=== PATIENT | male | born 1960 | race Hispanic/Latino ===

== ENCOUNTER 2024-04-06 15:35 | Emergency (ER) | payer OTHER, SELFPAY ==
[2024-04-06] VITALS (33 sets, daily range): BP systolic 125–168; BP diastolic 61–88; PULSE 83–96; RESP 14–21; TEMP 37.2; O2SAT 94–100; BMI 24.1
--- NOTE | 2024-04-06 16:36 | ED.MALEGU ---
HPI - Male Genitourinary <Monica Wasserman DO - Last Filed: 04/12/24 08:32> General Chief complaint: Urogenital-Male Stated complaint: Blood in urine t-7, no energy Time Seen by Provider: 04/06/24 16:06 Source: patient Mode of arrival: Ambulatory History of Present Illness HPI Narrative: Patient is a 63-year-old male history of insulin-dependent diabetes coronary artery disease with stents in 2003 hypertension diabetic induced neuropathy presenting today with increasing weakness. He reports that he has not felt well for almost a year but maybe worse over the last 4 days. He is some chronic ongoing back pain which might be a little bit worse but he really can not tell. He denies any sort of fever. But has significant weakness and chills. Noticed had some blood in his urine. reports that he has had significant decrease in appetite. No painful frequent urination no significant kidney stone pain no chest pain or shortness of breath. Related Data Home Medications Medication Instructions Recorded Confirmed amlodipine 5 mg tablet 5 mg PO DAILY 04/06/24 04/06/24 aspirin 81 mg tablet,delayed 81 mg PO DAILY 04/06/24 04/06/24 release gabapentin 300 mg capsule See Rx Instructions .Route .COMPLEX 04/06/24 04/06/24 glipizide 5 mg-metformin 500 mg 2 tab PO BID 04/06/24 04/06/24 tablet hydrocodone 5 mg-acetaminophen 325 1 tab PO Q6H PRN pain 04/06/24 04/06/24 mg tablet insulin NPH isoph U-100 human 100 5 unit SUBCUT BID 04/06/24 04/06/24 unit/mL (3 mL) subcutaneous pen (Humulin N NPH U-100 Insulin KwikPen) trazodone 100 mg tablet 100 mg PO ONCE PM PRN insomnia 04/06/24 04/06/24 Allergies Allergy/AdvReac Type Severity Reaction Status Date / Time No Known Drug Allergies Allergy Verified 04/06/24 15:50 Patient History <Monica Wasserman DO - Last Filed: 04/12/24 08:32> Social History Smoking Status: Never smoker Smoking Status: Never smoker alcohol intake frequency: holidays/special occasions only Substance Use Type: does not use Exam <Monica Wasserman DO - Last Filed: 04/12/24 08:32> Initial Vital Signs Initial Vital Signs: Vital Signs Temperature 98.9 F 04/06/24 15:50 Pulse Rate 96 H 04/06/24 15:50 Respiratory Rate 18 04/06/24 15:50 Blood Pressure 163/83 H 04/06/24 15:50 Pulse Oximetry 99 04/06/24 15:50 Oxygen Delivery Method Room Air 04/06/24 15:50 GENERAL: Alert week 63-year-old male HEENT: Head atraumatic,EOMI, pupils reactive, face symmetric, moist mucous membranes CARDIOVASCULAR: Regular rate and rhythm without murmurs, rubs or gallops. RESPIRATORY: Breath sounds equal bilaterally, no wheezes rales or rhonchi. ABDOMEN: Soft, nontender. Normoactive bowel sounds all 4 quadrants. No guarding or rebound. BACK: No vertebral tenderness or step-off some mild left lumbar pain that goes across lower bottom of his back : No CVA tenderness EXTREMITIES: Normal range of motion, no clubbing or edema. Neurovascularly intact NEUROLOGICAL: Alert and oriented x4.Normal gait and speech. SKIN: Warm, dry, no laceration, no petechiae, no rashes or lesions. <Lacey Johnson, DO - Last Filed: 04/07/24 00:16> Initial Vital Signs Initial Vital Signs: Vital Signs Temperature 98.9 F 04/06/24 15:50 Pulse Rate 96 H 04/06/24 15:50 Respiratory Rate 18 04/06/24 15:50 Blood Pressure 163/83 H 04/06/24 15:50 Pulse Oximetry 99 04/06/24 15:50 Oxygen Delivery Method Room Air 04/06/24 15:50 Course <Monica Wasserman, DO - Last Filed: 04/12/24 08:32> Orders Ordered: Discontinued Medications Hydrocodone Bitart/Acetaminophen (Hydrocodone/Acet 5/325 Tablet) 1 tab PO NOW ONE Stop: 04/06/24 16:48 Last Admin: 04/06/24 17:07 Dose: 1 tab Documented By: CHARLETTE Hydrocodone Bitart/Acetaminophen (Hydrocodone/Acet 5/325 Tablet) 1 tab PO Q4HR PRN PRN Reason: Pain, Moderate (4-6) Last Admin: 04/06/24 21:27 Dose: 1 tab Documented By: STEVE Aspirin (Aspirin 81 Mg Chew Tab) 324 mg PO NOW ONE Stop: 04/06/24 17:55 Last Admin: 04/06/24 18:10 Dose: 324 mg Documented By: CHARLETTE Atorvastatin Calcium (Atorvastatin 20 Mg Tablet) 80 mg PO NOW ONE Stop: 04/06/24 18:22 Last Admin: 04/06/24 18:28 Dose: 80 mg Documented By: CHARLETTE Heparin Sodium (Porcine) (Heparin 5,000 Unit/Ml Vial) 4,000 unit 60 unit/kg (4000 unit) IV NOW ONE Stop: 04/06/24 17:55 Last Admin: 04/06/24 18:11 Dose: 4,000 unit Documented By: CHARLETTE Sodium Chloride (Normal Saline 0.9%) 1,000 mls @ 1,000 mls/hr IV BOLUS ONE Stop: 04/06/24 17:46 Last Infusion: 04/06/24 18:10 Dose: Infused Documented By: Admin: 04/06/24 17:06 Dose: 1,000 mls/hr Documented By: CHARLETTE Ceftriaxone Sodium 1,000 mg/ (Sodium Chloride) 100 mls @ 200 mls/hr IV NOW ONE Stop: 04/06/24 17:23 Last Infusion: 04/06/24 18:29 Dose: Infused Documented By: Admin: 04/06/24 17:40 Dose: 200 mls/hr Documented By: CHARLETTE Heparin Sodium/Dextrose (Heparin Drip) 25,000 unit in 500 mls @ 15.785 mls/hr IV CONT DANILO; Protocol Last Admin: 04/06/24 18:14 Dose: 12 units/kg/hr, 15.785 mls/hr Documented By: CHARLETTE Co-signed By: CLARISSA Ondansetron HCl (Ondansetron 4 Mg/2 Ml Inj) 4 mg IV NOW PRN PRN Reason: Nausea And Vomiting Vital Signs Vital signs: Vital Signs - 8 hr 04/06/24 16:30 04/06/24 16:30 04/06/24 16:45 Pulse Rate 88 Respiratory Rate Blood Pressure 151/70 H 147/79 H Pulse Oximetry 99 Oxygen Delivery Method 04/06/24 16:45 04/06/24 17:00 04/06/24 17:00 Pulse Rate 94 H 90 Respiratory Rate 16 Blood Pressure 146/71 H Pulse Oximetry 100 99 Oxygen Delivery Method Room Air 04/06/24 17:12 04/06/24 17:12 04/06/24 17:15 Pulse Rate 89 Respiratory Rate 16 Blood Pressure 154/80 H 150/84 H Pulse Oximetry 99 Oxygen Delivery Method 04/06/24 17:15 04/06/24 17:30 04/06/24 17:30 Pulse Rate 89 95 H Respiratory Rate 14 Blood Pressure 153/85 H Pulse Oximetry 99 100 Oxygen Delivery Method Room Air 04/06/24 17:45 04/06/24 17:45 04/06/24 18:00 Pulse Rate 94 H 90 Respiratory Rate 18 Blood Pressure 155/87 H Pulse Oximetry 100 99 Oxygen Delivery Method 04/06/24 18:00 04/06/24 18:15 04/06/24 18:15 Pulse Rate 87 Respiratory Rate 19 Blood Pressure 154/77 H 157/88 H Pulse Oximetry 99 Oxygen Delivery Method 04/06/24 18:30 04/06/24 18:30 04/06/24 18:45 Pulse Rate 85 87 Respiratory Rate 20 14 Blood Pressure 152/80 H Pulse Oximetry 99 99 Oxygen Delivery Method 04/06/24 18:45 04/06/24 19:00 04/06/24 19:00 Pulse Rate 90 Respiratory Rate 20 Blood Pressure 152/84 H 153/69 H Pulse Oximetry 98 Oxygen Delivery Method 04/06/24 19:15 04/06/24 19:15 04/06/24 19:30 Pulse Rate 87 Respiratory Rate 16 Blood Pressure 143/77 H 150/81 H Pulse Oximetry 98 Oxygen Delivery Method 04/06/24 19:30 04/06/24 19:45 04/06/24 19:45 Pulse Rate 85 84 Respiratory Rate 20 20 Blood Pressure 148/78 H Pulse Oximetry 98 99 Oxygen Delivery Method 04/06/24 20:00 04/06/24 20:00 04/06/24 20:15 Pulse Rate 83 85 Respiratory Rate 17 16 Blood Pressure 145/87 H Pulse Oximetry 99 99 Oxygen Delivery Method 04/06/24 20:15 04/06/24 20:30 04/06/24 20:30 Pulse Rate 86 Respiratory Rate 19 Blood Pressure 166/76 H 144/74 H Pulse Oximetry 97 Oxygen Delivery Method 04/06/24 20:45 04/06/24 20:45 04/06/24 21:00 Pulse Rate 85 86 Respiratory Rate 18 15 Blood Pressure 143/76 H Pulse Oximetry 98 97 Oxygen Delivery Method 04/06/24 21:00 04/06/24 21:15 04/06/24 21:15 Pulse Rate 85 Respiratory Rate 18 Blood Pressure 136/74 145/76 H Pulse Oximetry 96 Oxygen Delivery Method 04/06/24 21:30 04/06/24 21:30 04/06/24 21:46 Pulse Rate 89 86 Respiratory Rate 21 19 Blood Pressure 157/83 H Pulse Oximetry 98 94 Oxygen Delivery Method 04/06/24 21:46 04/06/24 22:00 04/06/24 22:00 Pulse Rate 87 Respiratory Rate 19 Blood Pressure 136/68 140/73 Pulse Oximetry 98 Oxygen Delivery Method 04/06/24 22:15 04/06/24 22:15 04/06/24 22:30 Pulse Rate 88 Respiratory Rate 19 Blood Pressure 135/70 125/61 Pulse Oximetry 96 Oxygen Delivery Method 04/06/24 22:30 04/06/24 23:00 04/06/24 23:30 Pulse Rate 90 85 83 Respiratory Rate 19 15 17 Blood Pressure Pulse Oximetry 97 97 98 Oxygen Delivery Method 04/06/24 23:56 04/06/24 23:56 Pulse Rate 86 Respiratory Rate 21 Blood Pressure 130/66 Pulse Oximetry 99 Oxygen Delivery Method <Lacey Johnson, DO - Last Filed: 04/07/24 00:16> Orders Ordered: Discontinued Medications Hydrocodone Bitart/Acetaminophen (Hydrocodone/Acet 5/325 Tablet) 1 tab PO NOW ONE Stop: 04/06/24 16:48 Last Admin: 04/06/24 17:07 Dose: 1 tab Documented By: CHARLETTE Hydrocodone Bitart/Acetaminophen (Hydrocodone/Acet 5/325 Tablet) 1 tab PO Q4HR PRN PRN Reason: Pain, Moderate (4-6) Last Admin: 04/06/24 21:27 Dose: 1 tab Documented By: STEVE Aspirin (Aspirin 81 Mg Chew Tab) 324 mg PO NOW ONE Stop: 04/06/24 17:55 Last Admin: 04/06/24 18:10 Dose: 324 mg Documented By: CHARLETTE Atorvastatin Calcium (Atorvastatin 20 Mg Tablet) 80 mg PO NOW ONE Stop: 04/06/24 18:22 Last Admin: 04/06/24 18:28 Dose: 80 mg Documented By: CHARLETTE Heparin Sodium (Porcine) (Heparin 5,000 Unit/Ml Vial) 4,000 unit 60 unit/kg (4000 unit) IV NOW ONE Stop: 04/06/24 17:55 Last Admin: 04/06/24 18:11 Dose: 4,000 unit Documented By: CHARLETTE Sodium Chloride (Normal Saline 0.9%) 1,000 mls @ 1,000 mls/hr IV BOLUS ONE Stop: 04/06/24 17:46 Last Infusion: 04/06/24 18:10 Dose: Infused Documented By: Admin: 04/06/24 17:06 Dose: 1,000 mls/hr Documented By: CHARLETTE Ceftriaxone Sodium 1,000 mg/ (Sodium Chloride) 100 mls @ 200 mls/hr IV NOW ONE Stop: 04/06/24 17:23 Last Infusion: 04/06/24 18:29 Dose: Infused Documented By: Admin: 04/06/24 17:40 Dose: 200 mls/hr Documented By: CHARLETTE Heparin Sodium/Dextrose (Heparin Drip) 25,000 unit in 500 mls @ 15.785 mls/hr IV CONT DANILO; Protocol Last Admin: 04/06/24 18:14 Dose: 12 units/kg/hr, 15.785 mls/hr Documented By: CHARLETTE Co-signed By: CLARISSA Ondansetron HCl (Ondansetron 4 Mg/2 Ml Inj) 4 mg IV NOW PRN PRN Reason: Nausea And Vomiting Vital Signs Vital signs: Vital Signs - 8 hr 04/06/24 16:30 04/06/24 16:30 04/06/24 16:45 Pulse Rate 88 Respiratory Rate Blood Pressure 151/70 H 147/79 H Pulse Oximetry 99 Oxygen Delivery Method 04/06/24 16:45 04/06/24 17:00 04/06/24 17:00 Pulse Rate 94 H 90 Respiratory Rate 16 Blood Pressure 146/71 H Pulse Oximetry 100 99 Oxygen Delivery Method Room Air 04/06/24 17:12 04/06/24 17:12 04/06/24 17:15 Pulse Rate 89 Respiratory Rate 16 Blood Pressure 154/80 H 150/84 H Pulse Oximetry 99 Oxygen Delivery Method 04/06/24 17:15 04/06/24 17:30 04/06/24 17:30 Pulse Rate 89 95 H Respiratory Rate 14 Blood Pressure 153/85 H Pulse Oximetry 99 100 Oxygen Delivery Method Room Air 04/06/24 17:45 04/06/24 17:45 04/06/24 18:00 Pulse Rate 94 H 90 Respiratory Rate 18 Blood Pressure 155/87 H Pulse Oximetry 100 99 Oxygen Delivery Method 04/06/24 18:00 04/06/24 18:15 04/06/24 18:15 Pulse Rate 87 Respiratory Rate 19 Blood Pressure 154/77 H 157/88 H Pulse Oximetry 99 Oxygen Delivery Method 04/06/24 18:30 04/06/24 18:30 04/06/24 18:45 Pulse Rate 85 87 Respiratory Rate 20 14 Blood Pressure 152/80 H Pulse Oximetry 99 99 Oxygen Delivery Method 04/06/24 18:45 04/06/24 19:00 04/06/24 19:00 Pulse Rate 90 Respiratory Rate 20 Blood Pressure 152/84 H 153/69 H Pulse Oximetry 98 Oxygen Delivery Method 04/06/24 19:15 04/06/24 19:15 04/06/24 19:30 Pulse Rate 87 Respiratory Rate 16 Blood Pressure 143/77 H 150/81 H Pulse Oximetry 98 Oxygen Delivery Method 04/06/24 19:30 04/06/24 19:45 04/06/24 19:45 Pulse Rate 85 84 Respiratory Rate 20 20 Blood Pressure 148/78 H Pulse Oximetry 98 99 Oxygen Delivery Method 04/06/24 20:00 04/06/24 20:00 04/06/24 20:15 Pulse Rate 83 85 Respiratory Rate 17 16 Blood Pressure 145/87 H Pulse Oximetry 99 99 Oxygen Delivery Method 04/06/24 20:15 04/06/24 20:30 04/06/24 20:30 Pulse Rate 86 Respiratory Rate 19 Blood Pressure 166/76 H 144/74 H Pulse Oximetry 97 Oxygen Delivery Method 04/06/24 20:45 04/06/24 20:45 04/06/24 21:00 Pulse Rate 85 86 Respiratory Rate 18 15 Blood Pressure 143/76 H Pulse Oximetry 98 97 Oxygen Delivery Method 04/06/24 21:00 04/06/24 21:15 04/06/24 21:15 Pulse Rate 85 Respiratory Rate 18 Blood Pressure 136/74 145/76 H Pulse Oximetry 96 Oxygen Delivery Method 04/06/24 21:30 04/06/24 21:30 04/06/24 21:46 Pulse Rate 89 86 Respiratory Rate 21 19 Blood Pressure 157/83 H Pulse Oximetry 98 94 Oxygen Delivery Method 04/06/24 21:46 04/06/24 22:00 04/06/24 22:00 Pulse Rate 87 Respiratory Rate 19 Blood Pressure 136/68 140/73 Pulse Oximetry 98 Oxygen Delivery Method 04/06/24 22:15 04/06/24 22:15 04/06/24 22:30 Pulse Rate 88 Respiratory Rate 19 Blood Pressure 135/70 125/61 Pulse Oximetry 96 Oxygen Delivery Method 04/06/24 22:30 04/06/24 23:00 04/06/24 23:30 Pulse Rate 90 85 83 Respiratory Rate 19 15 17 Blood Pressure Pulse Oximetry 97 97 98 Oxygen Delivery Method 04/06/24 23:56 04/06/24 23:56 Pulse Rate 86 Respiratory Rate 21 Blood Pressure 130/66 Pulse Oximetry 99 Oxygen Delivery Method MDM - Male Genitourinary <Monica Wasserman, - Last Filed: 04/12/24 08:32> Lab Data 04/06/24 16:05 04/06/24 16:05 Labs: Lab Results 04/06/24 04/06/24 04/06/24 Range/Units 16:05 16:30 16:30 WBC 11.6 H (4.5-11.0) X10^3/uL RBC 3.68 L (4.5-5.9) X10^6/uL Hgb 11.3 L (13.5-17.5) g/dL Hct 32.6 L (41-53) % MCV 88.7 (80-100) fL MCH 30.7 (26-34) PG MCHC 34.6 (30-36) % RDW 12.8 (11.6-14.8) % Plt Count 275 (150-400) X10^3/uL Neut % (Auto) 78.4 H (50-75) % Lymph % (Auto) 9.8 L (25-40) % [place] % (Auto) 8.8 (3-14) % Eos % (Auto) 1.1 L (2-4) % Baso % (Auto) 1.9 (0-2) % Neut # (Auto) 9100 H (1275-3687) /uL Lymph # (Auto) 1100 (3616-3913) /uL [place] # (Auto) 1000 H (0-900) /uL Eos # (Auto) 100 (0-450) /uL Baso # (Auto) 200 H (0-100) /uL APTT (25.1-36.5) SECONDS Sodium 134 L (137-145) mmol/L Potassium 4.0 (3.4-5.1) mmol/L Chloride 99 (98-107) mmol/L Carbon Dioxide 27 (22-32) mmol/L BUN 20 (9-20) mg/dL Creatinine 0.54 L (0.66-1.25) mg/dL Estimated GFR > 60 (>60) mL/min BUN/Creatinine Ratio 37.0 H (6-22) Glucose 293 H (80-110) mg/dL Lactate 1.1 (0.7-2.1) mmol/L Calcium 8.9 (8.4-10.2) mg/dL Total Bilirubin 0.9 (0.2-1.3) mg/dL AST 31 (17-59) IU/L ALT 14 (<50) IU/L Alkaline Phosphatase 94 (38-126) U/L Total Creatine Kinase 83 (55-170) U/L Troponin I 2.160 H* (0.01-0.034) ng/mL NT-Pro-B Natriuret Pep (<125) pg/mL Total Protein 7.2 (6.3-8.2) g/dL Albumin 4.1 (3.5-5.0) g/dL Globulin 3.1 (1.7-4.1) g/dL Albumin/Globulin Ratio 1.3 (1.0-2.8) Lipase 72 (23-300) U/L Urine Color Yellow Urine Appearance Cloudy Urine pH 6.0 (4.5-8.0) Ur Specific [place] 1.015 (1.000-1.035) Urine Protein 1+ H (Negative) Urine Glucose (UA) Negative (Negative) g/dL Urine Ketones 2+ H (NEGATIVE) Urine Occult Blood 3+ H (Negative) Urine Nitrate Negative (Negative) Urine Bilirubin Negative (NEGATIVE) Urine Urobilinogen 2.0 H (0.2) E.U./dL Ur Leukocyte Esterase 2+ H (NEGATIVE) Urine RBC Cancelled 5-10/hpf H Urine WBC Cancelled Ur Squamous Epith Cells Ur Transition Epith Cell Ur Renal Epithelial Cell Calcium Oxalate Crystal Uric Acid Crystals Triple Phos Crystals Other Crystals Amorphous Sediment Urine Bacteria Hyaline Casts Granular Casts RBC Casts WBC Casts Other Casts Urine Mucus Urine Trichomonas Urine Yeast Urine Sperm Ur Culture Indicated? Micro UA Comment Vol Urine Centrifuged 04/06/24 04/06/24 04/06/24 Range/Units 16:30 16:30 16:30 WBC (4.5-11.0) X10^3/uL RBC (4.5-5.9) X10^6/uL Hgb (13.5-17.5) g/dL Hct (41-53) % MCV (80-100) fL MCH (26-34) PG MCHC (30-36) % RDW (11.6-14.8) % Plt Count (150-400) X10^3/uL Neut % (Auto) (50-75) % Lymph % (Auto) (25-40) % [place] % (Auto) (3-14) % Eos % (Auto) (2-4) % Baso % (Auto) (0-2) % Neut # (Auto) (8175-6583) /uL Lymph # (Auto) (9079-4257) /uL [place] # (Auto) (0-900) /uL Eos # (Auto) (0-450) /uL Baso # (Auto) (0-100) /uL APTT (25.1-36.5) SECONDS Sodium (137-145) mmol/L Potassium (3.4-5.1) mmol/L Chloride (98-107) mmol/L Carbon Dioxide (22-32) mmol/L BUN (9-20) mg/dL Creatinine (0.66-1.25) mg/dL Estimated GFR (>60) mL/min BUN/Creatinine Ratio (6-22) Glucose (80-110) mg/dL Lactate (0.7-2.1) mmol/L Calcium (8.4-10.2) mg/dL Total Bilirubin (0.2-1.3) mg/dL AST (17-59) IU/L ALT (<50) IU/L Alkaline Phosphatase (38-126) U/L Total Creatine Kinase (55-170) U/L Troponin I (0.01-0.034) ng/mL NT-Pro-B Natriuret Pep (<125) pg/mL Total Protein (6.3-8.2) g/dL Albumin (3.5-5.0) g/dL Globulin (1.7-4.1) g/dL Albumin/Globulin Ratio (1.0-2.8) Lipase (23-300) U/L Urine Color Urine Appearance Urine pH (4.5-8.0) Ur Specific [place] (1.000-1.035) Urine Protein (Negative) Urine Glucose (UA) (Negative) g/dL Urine Ketones (NEGATIVE) Urine Occult Blood (Negative) Urine Nitrate (Negative) Urine Bilirubin (NEGATIVE) Urine Urobilinogen (0.2) E.U./dL Ur Leukocyte Esterase (NEGATIVE) Urine RBC Urine WBC 30-100/hpf H Ur Squamous Epith Cells Cancelled 0-1 /hpf Ur Transition Epith Cell Cancelled Ur Renal Epithelial Cell Cancelled Calcium Oxalate Crystal Cancelled Uric Acid Crystals Cancelled Triple Phos Crystals Cancelled Other Crystals Cancelled Amorphous Sediment Cancelled Urine Bacteria Cancelled Many (>30) H Hyaline Casts Cancelled Granular Casts Cancelled RBC Casts Cancelled WBC Casts Cancelled Other Casts Cancelled Urine Mucus Cancelled Urine Trichomonas Cancelled Urine Yeast Cancelled Urine Sperm Cancelled Ur Culture Indicated? Cancelled Micro UA Comment Cancelled Vol Urine Centrifuged Cancelled 04/06/24 04/06/24 04/06/24 Range/Units 16:30 17:58 23:45 WBC (4.5-11.0) X10^3/uL RBC (4.5-5.9) X10^6/uL Hgb (13.5-17.5) g/dL Hct (41-53) % MCV (80-100) fL MCH (26-34) PG MCHC (30-36) % RDW (11.6-14.8) % Plt Count (150-400) X10^3/uL Neut % (Auto) (50-75) % Lymph % (Auto) (25-40) % [place] % (Auto) (3-14) % Eos % (Auto) (2-4) % Baso % (Auto) (0-2) % Neut # (Auto) (4335-8310) /uL Lymph # (Auto) (0044-7072) /uL [place] # (Auto) (0-900) /uL Eos # (Auto) (0-450) /uL Baso # (Auto) (0-100) /uL APTT 28 36 D (25.1-36.5) SECONDS Sodium (137-145) mmol/L Potassium (3.4-5.1) mmol/L Chloride (98-107) mmol/L Carbon Dioxide (22-32) mmol/L BUN (9-20) mg/dL Creatinine (0.66-1.25) mg/dL Estimated GFR (>60) mL/min BUN/Creatinine Ratio (6-22) Glucose (80-110) mg/dL Lactate (0.7-2.1) mmol/L Calcium (8.4-10.2) mg/dL Total Bilirubin (0.2-1.3) mg/dL AST (17-59) IU/L ALT (<50) IU/L Alkaline Phosphatase (38-126) U/L Total Creatine Kinase (55-170) U/L Troponin I 2.290 H* 2.130 H* (0.01-0.034) ng/mL NT-Pro-B Natriuret Pep 2950 H (<125) pg/mL Total Protein (6.3-8.2) g/dL Albumin (3.5-5.0) g/dL Globulin (1.7-4.1) g/dL Albumin/Globulin Ratio (1.0-2.8) Lipase (23-300) U/L Urine Color Urine Appearance Urine pH (4.5-8.0) Ur Specific [place] (1.000-1.035) Urine Protein (Negative) Urine Glucose (UA) (Negative) g/dL Urine Ketones (NEGATIVE) Urine Occult Blood (Negative) Urine Nitrate (Negative) Urine Bilirubin (NEGATIVE) Urine Urobilinogen (0.2) E.U./dL Ur Leukocyte Esterase (NEGATIVE) Urine RBC Urine WBC Ur Squamous Epith Cells Ur Transition Epith Cell Ur Renal Epithelial Cell Calcium Oxalate Crystal Uric Acid Crystals Triple Phos Crystals Other Crystals Amorphous Sediment Urine Bacteria Hyaline Casts Granular Casts RBC Casts WBC Casts Other Casts Urine Mucus Urine Trichomonas Urine Yeast Urine Sperm Ur Culture Indicated? Micro UA Comment Vol Urine Centrifuged 10ml (spun) Point of Care Testing Glucose POC 279 Urine Dip Bedside Urine Glucose 1000 mg/dl Bedside Urine Bilirubin - Negative Bedside Urine Ketone ++++ 160 Urine Specific [place] 1.015 Bedside Urine Occult Blood +++ Bedside Urine pH 6.0 Bedside Urine Protein + 30 Bedside Urine Urobilinogen 0.2 Bedside Urine Nitrite - Negative Bedside Urine Leukocytes +++ 500 Esterase ECG Data Attestation: I personally reviewed and interpreted this ECG as follows: Prior ECG tracings: not available for review Interpretation: Sinus rhythm rate 93 OH interval 124 QRS 82 QTC 460 the depression noted inferiorly V4 V5 and V6 without significant ST elevations no priors to compare MDM Narrative Medical decision making narrative: Patient is 64-year-old male insulin-dependent diabetic history of coronary artery disease presenting today with generalized weakness and fatigue. So like this has been going on for awhile maybe worse over last 7 days possible blood in his urine. Blood work has been reviewed: troponin positive at 2.16 WBC 11.6, hemoglobin 11.3, hematocrit 32.6, platelets 275, sodium 134, potassium 4.0, chloride 99, carbon dioxide 27, BUN 20, creatinine 0.54, lactate 1.1, bilirubin 0.9, AST 31, ALT 14, Chest x-ray reviewed no acute cardiopulmonary process Patient overall appears well nontoxic slightly weak. He is afebrile non tachycardic normotensive. He has low back pain no significant CVA pain. He is found to have a significantly positive troponin of 2.[address] depressions without any elevations or chest pain. He has no prior EKGs to compare He has no evidence of DKA there is no anion gap, 1800 Dr. Conklin on-call cardiology updated on patient's symptoms and test results agrees with transferring for cardiac catheterization, which would happen during the hospitalization but tomorrow Patient is given a L of IV fluids and Rocephin for UTI blood cultures pending. He is also started on heparin and given aspirin. She overall appears well and nontoxic. Patient signed out to Dr. Johnson, needs to be transferred to higher care. 04/06/24 Dr. Johnson: Patient signed out to myself by Dr. Wasserman. Patient was seen and evaluated by myself well. Patient presents today for complaint of weakness, fatigue and possible hematuria. He has not had any chest pain or shortness of breath but does have a positive troponin with ST depressions on EKG. He denies any chest pain. He does have a cardiac history and has 3 cardiac stents that were placed at [facility] in [place] quite a few years ago. Patient states he does not follow with cardiology regularly, he sounds like he is intermittently compliant with his medications in particular his insulin. He has on an aspirin daily. Patient's troponin is trending upwards, he has received aspirin, heparin drip, he does not have any chest pain or pressure so nitrates were not started. He did receive a dose of Rocephin urine appeared infected. Glucose is elevated at 293 but otherwise has normal renal function CO2 no signs of DKA. He is got anemia with a hemoglobin of 11, priors for comparison. White count is 11.6 today. Troponin on repeat is trending upwards. Patient continues to be asymptomatic on rechecked. Chest x-ray showed no acute change. Patient's EKG did show changes with ST depression consistent with NSTEMI but no priors for comparison. Discussed with patient he is agreeable to transfer we do not have any had house cardiology locally. With the trending upwards troponins felt appropriate for transfer. Waiting to see if [facility] has been, [facility] in [place] does not have any currently. Reach out to [facility], no beds available [facility] has no beds available. Anushka santo does spoke with Dr. Sevilla who kindly accepts patient for transfer. <Lacey Johnson, - Last Filed: 04/07/24 00:16> Lab Data Labs: Lab Results 04/06/24 04/06/24 04/06/24 Range/Units 16:05 16:30 16:30 WBC 11.6 H (4.5-11.0) X10^3/uL RBC 3.68 L (4.5-5.9) X10^6/uL Hgb 11.3 L (13.5-17.5) g/dL Hct 32.6 L (41-53) % MCV 88.7 (80-100) fL MCH 30.7 (26-34) PG MCHC 34.6 (30-36) % RDW 12.8 (11.6-14.8) % Plt Count 275 (150-400) X10^3/uL Neut % (Auto) 78.4 H (50-75) % Lymph % (Auto) 9.8 L (25-40) % [place] % (Auto) 8.8 (3-14) % Eos % (Auto) 1.1 L (2-4) % Baso % (Auto) 1.9 (0-2) % Neut # (Auto) 9100 H (0928-1443) /uL Lymph # (Auto) 1100 (9825-5980) /uL [place] # (Auto) 1000 H (0-900) /uL Eos # (Auto) 100 (0-450) /uL Baso # (Auto) 200 H (0-100) /uL APTT (25.1-36.5) SECONDS Sodium 134 L (137-145) mmol/L Potassium 4.0 (3.4-5.1) mmol/L Chloride 99 (98-107) mmol/L Carbon Dioxide 27 (22-32) mmol/L BUN 20 (9-20) mg/dL Creatinine 0.54 L (0.66-1.25) mg/dL Estimated GFR > 60 (>60) mL/min BUN/Creatinine Ratio 37.0 H (6-22) Glucose 293 H (80-110) mg/dL Lactate 1.1 (0.7-2.1) mmol/L Calcium 8.9 (8.4-10.2) mg/dL Total Bilirubin 0.9 (0.2-1.3) mg/dL AST 31 (17-59) IU/L ALT 14 (<50) IU/L Alkaline Phosphatase 94 (38-126) U/L Total Creatine Kinase 83 (55-170) U/L Troponin I 2.160 H* (0.01-0.034) ng/mL NT-Pro-B Natriuret Pep (<125) pg/mL Total Protein 7.2 (6.3-8.2) g/dL Albumin 4.1 (3.5-5.0) g/dL Globulin 3.1 (1.7-4.1) g/dL Albumin/Globulin Ratio 1.3 (1.0-2.8) Lipase 72 (23-300) U/L Urine Color Yellow Urine Appearance Cloudy Urine pH 6.0 (4.5-8.0) Ur Specific [place] 1.015 (1.000-1.035) Urine Protein 1+ H (Negative) Urine Glucose (UA) Negative (Negative) g/dL Urine Ketones 2+ H (NEGATIVE) Urine Occult Blood 3+ H (Negative) Urine Nitrate Negative (Negative) Urine Bilirubin Negative (NEGATIVE) Urine Urobilinogen 2.0 H (0.2) E.U./dL Ur Leukocyte Esterase 2+ H (NEGATIVE) Urine RBC Cancelled 5-10/hpf H Urine WBC Cancelled Ur Squamous Epith Cells Ur Transition Epith Cell Ur Renal Epithelial Cell Calcium Oxalate Crystal Uric Acid Crystals Triple Phos Crystals Other Crystals Amorphous Sediment Urine Bacteria Hyaline Casts Granular Casts RBC Casts WBC Casts Other Casts Urine Mucus Urine Trichomonas Urine Yeast Urine Sperm Ur Culture Indicated? Micro UA Comment Vol Urine Centrifuged 04/06/24 04/06/24 04/06/24 Range/Units 16:30 16:30 16:30 WBC (4.5-11.0) X10^3/uL RBC (4.5-5.9) X10^6/uL Hgb (13.5-17.5) g/dL Hct (41-53) % MCV (80-100) fL MCH (26-34) PG MCHC (30-36) % RDW (11.6-14.8) % Plt Count (150-400) X10^3/uL Neut % (Auto) (50-75) % Lymph % (Auto) (25-40) % [place] % (Auto) (3-14) % Eos % (Auto) (2-4) % Baso % (Auto) (0-2) % Neut # (Auto) (4861-5031) /uL Lymph # (Auto) (1902-6470) /uL [place] # (Auto) (0-900) /uL Eos # (Auto) (0-450) /uL Baso # (Auto) (0-100) /uL APTT (25.1-36.5) SECONDS Sodium (137-145) mmol/L Potassium (3.4-5.1) mmol/L Chloride (98-107) mmol/L Carbon Dioxide (22-32) mmol/L BUN (9-20) mg/dL Creatinine (0.66-1.25) mg/dL Estimated GFR (>60) mL/min BUN/Creatinine Ratio (6-22) Glucose (80-110) mg/dL Lactate (0.7-2.1) mmol/L Calcium (8.4-10.2) mg/dL Total Bilirubin (0.2-1.3) mg/dL AST (17-59) IU/L ALT (<50) IU/L Alkaline Phosphatase (38-126) U/L Total Creatine Kinase (55-170) U/L Troponin I (0.01-0.034) ng/mL NT-Pro-B Natriuret Pep (<125) pg/mL Total Protein (6.3-8.2) g/dL Albumin (3.5-5.0) g/dL Globulin (1.7-4.1) g/dL Albumin/Globulin Ratio (1.0-2.8) Lipase (23-300) U/L Urine Color Urine Appearance Urine pH (4.5-8.0) Ur Specific [place] (1.000-1.035) Urine Protein (Negative) Urine Glucose (UA) (Negative) g/dL Urine Ketones (NEGATIVE) Urine Occult Blood (Negative) Urine Nitrate (Negative) Urine Bilirubin (NEGATIVE) Urine Urobilinogen (0.2) E.U./dL Ur Leukocyte Esterase (NEGATIVE) Urine RBC Urine WBC 30-100/hpf H Ur Squamous Epith Cells Cancelled 0-1 /hpf Ur Transition Epith Cell Cancelled Ur Renal Epithelial Cell Cancelled Calcium Oxalate Crystal Cancelled Uric Acid Crystals Cancelled Triple Phos Crystals Cancelled Other Crystals Cancelled Amorphous Sediment Cancelled Urine Bacteria Cancelled Many (>30) H Hyaline Casts Cancelled Granular Casts Cancelled RBC Casts Cancelled WBC Casts Cancelled Other Casts Cancelled Urine Mucus Cancelled Urine Trichomonas Cancelled Urine Yeast Cancelled Urine Sperm Cancelled Ur Culture Indicated? Cancelled Micro UA Comment Cancelled Vol Urine Centrifuged Cancelled 04/06/24 04/06/24 04/06/24 Range/Units 16:30 17:58 23:45 WBC (4.5-11.0) X10^3/uL RBC (4.5-5.9) X10^6/uL Hgb (13.5-17.5) g/dL Hct (41-53) % MCV (80-100) fL MCH (26-34) PG MCHC (30-36) % RDW (11.6-14.8) % Plt Count (150-400) X10^3/uL Neut % (Auto) (50-75) % Lymph % (Auto) (25-40) % [place] % (Auto) (3-14) % Eos % (Auto) (2-4) % Baso % (Auto) (0-2) % Neut # (Auto) (0037-3935) /uL Lymph # (Auto) (6251-3669) /uL [place] # (Auto) (0-900) /uL Eos # (Auto) (0-450) /uL Baso # (Auto) (0-100) /uL APTT 28 36 D (25.1-36.5) SECONDS Sodium (137-145) mmol/L Potassium (3.4-5.1) mmol/L Chloride (98-107) mmol/L Carbon Dioxide (22-32) mmol/L BUN (9-20) mg/dL Creatinine (0.66-1.25) mg/dL Estimated GFR (>60) mL/min BUN/Creatinine Ratio (6-22) Glucose (80-110) mg/dL Lactate (0.7-2.1) mmol/L Calcium (8.4-10.2) mg/dL Total Bilirubin (0.2-1.3) mg/dL AST (17-59) IU/L ALT (<50) IU/L Alkaline Phosphatase (38-126) U/L Total Creatine Kinase (55-170) U/L Troponin I 2.290 H* 2.130 H* (0.01-0.034) ng/mL NT-Pro-B Natriuret Pep 2950 H (<125) pg/mL Total Protein (6.3-8.2) g/dL Albumin (3.5-5.0) g/dL Globulin (1.7-4.1) g/dL Albumin/Globulin Ratio (1.0-2.8) Lipase (23-300) U/L Urine Color Urine Appearance Urine pH (4.5-8.0) Ur Specific [place] (1.000-1.035) Urine Protein (Negative) Urine Glucose (UA) (Negative) g/dL Urine Ketones (NEGATIVE) Urine Occult Blood (Negative) Urine Nitrate (Negative) Urine Bilirubin (NEGATIVE) Urine Urobilinogen (0.2) E.U./dL Ur Leukocyte Esterase (NEGATIVE) Urine RBC Urine WBC Ur Squamous Epith Cells Ur Transition Epith Cell Ur Renal Epithelial Cell Calcium Oxalate Crystal Uric Acid Crystals Triple Phos Crystals Other Crystals Amorphous Sediment Urine Bacteria Hyaline Casts Granular Casts RBC Casts WBC Casts Other Casts Urine Mucus Urine Trichomonas Urine Yeast Urine Sperm Ur Culture Indicated? Micro UA Comment Vol Urine Centrifuged 10ml (spun) Point of Care Testing Glucose POC 279 Urine Dip Bedside Urine Glucose 1000 mg/dl Bedside Urine Bilirubin - Negative Bedside Urine Ketone ++++ 160 Urine Specific [place] 1.015 Bedside Urine Occult Blood +++ Bedside Urine pH 6.0 Bedside Urine Protein + 30 Bedside Urine Urobilinogen 0.2 Bedside Urine Nitrite - Negative Bedside Urine Leukocytes +++ 500 Esterase MDM Narrative Medical decision making narrative: Patient is 61-year-old male insulin-dependent diabetic history of coronary artery disease presenting today with generalized weakness and fatigue. So like this has been going on for awhile maybe worse over last 7 days possible blood in his urine. Blood work has been reviewed: troponin positive at 2.16 WBC 11.6, hemoglobin 11.3, hematocrit 32.6, platelets 275, sodium 134, potassium 4.0, chloride 99, carbon dioxide 27, BUN 20, creatinine 0.54, lactate 1.1, bilirubin 0.9, AST 31, ALT 14, Chest x-ray reviewed Patient overall appears well nontoxic slightly weak. He is afebrile non tachycardic normotensive. He has low back pain no significant CVA pain. He is found to have a significantly positive troponin of 2.[address] depressions without any elevations or chest pain. He has no prior EKGs to compare He has no evidence of DKA there is no anion gap, 1800 Dr. Conklin on-call cardiology updated on patient's symptoms and test results agrees with transferring for cardiac catheterization, which would happen during the hospitalization but tomorrow Patient is given a L of IV fluids and Rocephin for UTI blood cultures pending. He is also started on heparin and given aspirin. She overall appears well and nontoxic. Patient signed out to Dr. Johnson, needs to be transferred to higher care. 04/06/24 Dr. Johnson: Patient signed out to myself by Dr. Wasserman. Patient was seen and evaluated by myself well. Patient presents today for complaint of weakness, fatigue and possible hematuria. He has not had any chest pain or shortness of breath but does have a positive troponin with ST depressions on EKG. He denies any chest pain. He does have a cardiac history and has 3 cardiac stents that were placed at [facility] in [place] quite a few years ago. Patient states he does not follow with cardiology regularly, he sounds like he is intermittently compliant with his medications in particular his insulin. He has on an aspirin daily. Patient's troponin is trending upwards, he has received aspirin, heparin drip, he does not have any chest pain or pressure so nitrates were not started. He did receive a dose of Rocephin urine appeared infected. Glucose is elevated at 293 but otherwise has normal renal function CO2 no signs of DKA. He is got anemia with a hemoglobin of 11, priors for comparison. White count is 11.6 today. Troponin on repeat is trending upwards. Patient continues to be asymptomatic on rechecked. Chest x-ray showed no acute change. Patient's EKG did show changes with ST depression consistent with NSTEMI but no priors for comparison. Discussed with patient he is agreeable to transfer we do not have any [facility] cardiology locally. With the trending upwards troponins felt appropriate for transfer. Waiting to see if [facility] has been, [facility] in [place] does not have any currently. Reach out to [facility], no beds available [facility] has no beds available. Anushka santo does spoke with Dr. Sevilla who kindly accepts patient for transfer. Critical Care Time <Lacey Johnson DO - Last Filed: 04/07/24 00:16> Critical Care Time Critical Care Time: Yes Total Critical Care Time: 35 Attestation: The high probability of a clinically significant, sudden or life threatening deterioration of the cardiac and pulmonary system(s) required my full and direct attention, intervention and personal management. The aggregate critical care time was 35 minutes. This time is in addition to time spent performing reported procedures but includes the following: [x] Data Review and interpretation [x] Patient assessment and monitoring of vital signs [x] Documentation [x] Medication orders and management Discharge Plan Departure Patient Disposition: Xfer [facility] Clinical Impression: Acute non-ST elevation myocardial infarction (NSTEMI), Acute UTI Prescriptions: No Action hydrocodone-acetaminophen 5-325 mg tablet 1 tab PO Q6H PRN (Reason: pain) amlodipine 5 mg tablet 5 mg PO DAILY aspirin 81 mg tablet,delayed release (DR/EC) 81 mg PO DAILY trazodone 100 mg tablet 100 mg PO ONCE PM PRN (Reason: insomnia) gabapentin 300 mg capsule See Rx Instructions .ROUTE .COMPLEX Rx Instructions: Pt reports he takes 3 tabs PRN nightly glipizide-metformin 5-500 mg tablet 2 tab PO BID Humulin N NPH Insulin KwikPen 100 unit/mL (3 mL) insulin pen 5 unit SUBCUT BID
[2024-04-06 16:55] LABS: Add Manual Diff / Slide Review NO; Basophils Absolute Auto 200 /uL (0-100); Basophils Percent Auto 1.9 % (0-2); Eosinophils Absolute Auto 100 /uL (0-450); Eosinophils Percent Auto 1.1 % (2-4); Hematocrit 32.6 % (41-53); Hemoglobin 11.3 g/dL (13.5-17.5); Lymphocytes Absolute Auto 1100 /uL (1100-4500); Lymphocytes Percent Auto 9.8 % (25-40); Mean Corpuscular HGB Conc 34.6 % (30-36); Mean Corpuscular Hemoglobin 30.7 PG (26-34); Mean Corpuscular Volume 88.7 fL (80-100); Monocytes Absolute Auto 1000 /uL (0-900); Monocytes Percent Auto 8.8 % (3-14); Neutrophils Absolute Auto 9100 /uL (1500-7000); Neutrophils Percent Auto 78.4 % (50-75); Platelet Count 275 X10^3/uL (150-400); Red Blood Cell Count 3.68 X10^6/uL (4.5-5.9); Red Cell Distribution Width 12.8 % (11.6-14.8); White Blood Cell Count 11.6 X10^3/uL (4.5-11.0)
[2024-04-06 16:59] LABS: Lactate (Lactic Acid) 1.1 mmol/L (0.7-2.1)
[2024-04-06 17:01] LABS: Alanine Aminotransferase 14 IU/L (<50); Albumin 4.1 g/dL (3.5-5.0); Albumin Globulin Ratio 1.3 (1.0-2.8); Alkaline Phosphatase 94 U/L (38-126); Aspartate Aminotransferase 31 IU/L (17-59); Bilirubin Total 0.9 mg/dL (0.2-1.3); Blood Urea Nitrogen 20 mg/dL (9-20); Calcium 8.9 mg/dL (8.4-10.2); Carbon Dioxide 27 mmol/L (22-32); Chloride 99 mmol/L (98-107); Creatine Kinase 83 U/L (55-170); Estimated Glomerular Filt Rate > 60 mL/min (>60); Globulin 3.1 g/dL (1.7-4.1); Glucose 293 mg/dL (80-110); HEMOLYSIS < 15 (0-50); Lipase 72 U/L (23-300); Sodium 134 mmol/L (137-145); Total Protein 7.2 g/dL (6.3-8.2)
[2024-04-06] MEDS: SODIUM CHLORIDE 0.9% 1,000 ML 1000 ML IV (17:06)
[2024-04-06] MEDS: HYDROCODONE/ACET 5/325 TABLET 1 TAB PO ×2 (17:07→21:27)
[2024-04-06] MEDS: cefTRIAXone 1,000 MG in SODIUM CHLORIDE 0.9% 100 ML 200 MG IV (17:40)
--- NOTE | 2024-04-06 17:49 | DI.RAD.S_ITS ---
PROCEDURE: XR CHEST 1V INDICATIONS: weakness NSTEMI TECHNIQUE: One view of the chest was acquired. COMPARISON: None. FINDINGS: Surgical changes and devices: None. Lungs and pleura: Lungs are clear. No pleural effusions or pneumothorax. Mediastinum: Mediastinal contours appear normal. Heart size is normal. Bones and chest wall: No suspicious bony lesions. Overlying soft tissues appear unremarkable. IMPRESSION: No acute cardiopulmonary abnormality is seen. Dictated by: Manish Ray M.D. on 04/06/2024 at 17:21 Approved by: Manish Ray M.D. on 04/06/2024 at 17:22
[2024-04-06] MEDS: ASPIRIN 81 MG CHEW TAB 324 MG PO (18:10)
[2024-04-06] MEDS: HEPARIN 5,000 UNIT/ML VIAL 4000 UNIT IV (18:11)
[2024-04-06] MEDS: HEPARIN DRIP 25,000 UNIT/500 ML IV.SOLN 15.785 UNIT IV (18:14)
[2024-04-06 18:27] LABS: PTT Partial Thromboplastin Tim 28 SECONDS (25.1-36.5)
[2024-04-06] MEDS: ATORVASTATIN 20 MG TABLET 80 MG PO (18:28)
--- NOTE | 2024-04-06 18:29 | PC.NURSE ---
Addendum entered by Mo Connor CNA 04/06/24 19:20: Face sheet sent to [facility] @[phone]. Called the transfer center at [facility] @1916 and spoke to Luis who said they do not have beds available at this time but to check back over night. Original Note: Face sheet and doc notes faxed to [facility] @[phone]. Called [facility] and spoke to Gilberto who says they will review pt.
[2024-04-06 18:55] LABS: Appearance Urine UA CLOUDY; Bilirubin Urine UA NEGATIVE (NEGATIVE); Color Urine UA YELLOW; Glucose Urine UA NEGATIVE (Negative); Ketones Urine UA 2+ (NEGATIVE); Leukocyte Esterase Urine UA 2+ (NEGATIVE); Nitrite Urine UA NEGATIVE (Negative); Occult Blood Urine UA 3+ (Negative); Protein Urine UA 1+ (Negative); Specific Gravity Urine UA 1.015 (1.000-1.035)
[2024-04-06 18:57] LABS: NT-proBNP (BNP-Adult 18+) 2950 pg/mL (<125)
[2024-04-06 19:04] LABS: Urine Volume 10mL (spun)
[2024-04-06 19:05] LABS: Bacteria Urine Many (>30); RBC Urine 5-10/HPF (0-5/HPF); Squamous Epithelial Cell Urine 0-1 /HPF (0-5/HPF); WBC Urine 30-100/HPF (0-5/HPF)
[2024-04-07 00:19] LABS: PTT Partial Thromboplastin Tim 36 SECONDS (25.1-36.5)
--- NOTE | 2024-05-07 15:52 | PC.NURSE ---
late entry- per RN patient was transferred to another facility with heparin drip infusing.
== END 2024-04-07 00:15 | disposition short-term general hospital (02) ==
PROVIDERS: Emergency Medicine; Emergency Provider Emergency Medicine
DX: I21.4 Non-ST elevation (NSTEMI) myocardial infarction (principal); N39.0 Urinary tract infection, site not specified; I10 Essential (primary) hypertension
CPT/HCPCS: 36415; 71045; 80053; 81001; 81003; 82550; 82962; 83605; 83690; 83880; 84484; 85025; 85730; 87040; 87077; 87086; 87186; 93005; 96365; 96366; 96367; 96375; 99284; 99291; J0696; J1644

== ENCOUNTER 2024-04-22 06:24 | Emergency (ER) | payer OTHER, SELFPAY ==
[2024-04-22 06:35] VITALS: BP 148/70; PULSE 63; RESP 18; TEMP 35.4; O2SAT 96
--- NOTE | 2024-04-22 06:53 | PC.NURSE ---
see triage note, pt had recent bypass at , unsure the dose of insulin pt took last pm, pt does not monitor his BS but is IDDM.
[2024-04-22 07:08] LABS: Add Manual Diff / Slide Review NO; Basophils Absolute Auto 100 /uL (0-100); Basophils Percent Auto 0.6 % (0-2); Eosinophils Absolute Auto 200 /uL (0-450); Eosinophils Percent Auto 1.6 % (2-4); Hemoglobin 9.1 g/dL (13.5-17.5); Lymphocytes Absolute Auto 1100 /uL (1100-4500); Lymphocytes Percent Auto 8.2 % (25-40); Mean Corpuscular HGB Conc 33.7 % (30-36); Mean Corpuscular Hemoglobin 29.9 PG (26-34); Mean Corpuscular Volume 88.8 fL (80-100); Monocytes Absolute Auto 600 /uL (0-900); Neutrophils Absolute Auto 10800 /uL (1500-7000); Neutrophils Percent Auto 84.6 % (50-75); Platelet Count 662 X10^3/uL (150-400); Red Blood Cell Count 3.05 X10^6/uL (4.5-5.9); Red Cell Distribution Width 13.4 % (11.6-14.8); White Blood Cell Count 12.8 X10^3/uL (4.5-11.0)
[2024-04-22 07:28] LABS: Alanine Aminotransferase 13 IU/L (<50); Albumin 3.7 g/dL (3.5-5.0); Albumin Globulin Ratio 1.3 (1.0-2.8); Alkaline Phosphatase 95 U/L (38-126); Aspartate Aminotransferase 19 IU/L (17-59); BUN Creatinine Ratio 36.8 (6-22); Bilirubin Total 0.4 mg/dL (0.2-1.3); Blood Urea Nitrogen 25 mg/dL (9-20); Calcium 8.8 mg/dL (8.4-10.2); Carbon Dioxide 29 mmol/L (22-32); Chloride 100 mmol/L (98-107); Estimated Glomerular Filt Rate > 60 mL/min (>60); Globulin 2.9 g/dL (1.7-4.1); Glucose 232 mg/dL (80-110); HEMOLYSIS < 15 (0-50); Potassium 4.6 mmol/L (3.4-5.1); Sodium 134 mmol/L (137-145); Total Protein 6.6 g/dL (6.3-8.2)
--- NOTE | 2024-04-22 07:32 | ED.AMS ---
HPI - Altered Mental Status General Chief Complaint: Altered Mental Status Stated Complaint: Hypoglycemia Time Seen by Provider: 04/22/24 06:30 Source: EMS Mode of arrival: EMS Limitations: no limitations History of Present Illness HPI narrative: 63-year-old male history of insulin-dependent diabetes, coronary artery disease with stents in 2003, recent cardiac bypass 1.5 weeks ago, hypertension, diabetic induced nephropathy who presents with altered mental status and hypoglycemia. Patient's woke up found him altered, he had a glucose of 60 they tried to feed him his glucose on recheck was 37. He received D10 and had improvement in his mentation. He did take his insulin and glipizide last night. They state usually does 5 units in the morning in the evening. He has not had any this morning. Patient is alert at this time. He denies any symptoms currently. No fevers or chills recently. Denies any chest pain or shortness of breath, no nausea or vomiting, states he is stooling regularly. No urinary issues. No new swelling of extremities. Patient does not describe any issues with glucose control. He does not have a glucometer at home. His notes he has never had a glucometer diabetic education. He has been on the same dose of insulin for a long time. They are not sure if he has had any weight loss since his surgery. She does note that he had minimal intake had some potatoes but not rest of his dinner had an ensure before bed. His was concerned that he did not have a chest tube during the surgery and they had to wait for resolution of his pneumothorax before he could be discharged. No known drug allergies. No tobacco, occasional alcohol, no recreational drugs. Related Data Home Medications Medication Instructions Recorded Confirmed amlodipine 5 mg tablet 5 mg PO DAILY 04/06/24 04/06/24 aspirin 81 mg tablet,delayed 81 mg PO DAILY 04/06/24 04/06/24 release gabapentin 300 mg capsule See Rx Instructions .Route .COMPLEX 04/06/24 04/06/24 glipizide 5 mg-metformin 500 mg 2 tab PO BID 04/06/24 04/06/24 tablet hydrocodone 5 mg-acetaminophen 325 1 tab PO Q6H PRN pain 04/06/24 04/06/24 mg tablet insulin NPH isoph U-100 human 100 5 unit SUBCUT BID 04/06/24 04/06/24 unit/mL (3 mL) subcutaneous pen (Humulin N NPH U-100 Insulin KwikPen) trazodone 100 mg tablet 100 mg PO ONCE PM PRN insomnia 04/06/24 04/06/24 Allergies Allergy/AdvReac Type Severity Reaction Status Date / Time No Known Drug Allergies Allergy Verified 04/06/24 15:50 Review of Systems Review of Systems ROS Unobtainable: All systems reviewed & are unremarkable except as noted in HPI and below Patient History Social History Smoking Status: Never smoker Smoking Status: Never smoker alcohol intake frequency: holidays/special occasions only Substance Use Type: does not use Exam Narrative Exam Narrative: GENERAL: Alert and oriented x three, mild distress. HEENT: Head normocephalic, atraumatic, EOMI, pupils reactive, face symmetric, moist mucous membranes NECK: Supple, full range of motion, bandage on right neck clean dry without any erythema or signs of infection surrounding. CARDIOVASCULAR: Regular rate and rhythm without murmurs, rubs or gallops. RESPIRATORY: Breath sounds equal bilaterally, no wheezes rales or rhonchi. ABDOMEN: Soft, nontender. Normoactive bowel sounds all 4 quadrants. No guarding or rebound, rigidity, no mass : No CVA tenderness EXTREMITIES: Normal range of motion, no clubbing or edema. Neurovascularly intact NEUROLOGICAL: Cranial nerves II through XII grossly intact. Moving all extremities SKIN: Warm, dry, no petechiae, no rashes or lesions. Initial Vital Signs Initial Vital Signs: Vital Signs Temperature 95.7 F L 04/22/24 06:35 Pulse Rate 63 04/22/24 06:35 Respiratory Rate 18 04/22/24 06:35 Blood Pressure 148/70 H 04/22/24 06:35 Pulse Oximetry 96 04/22/24 06:35 Oxygen Delivery Method Room Air 04/22/24 06:35 Course Orders Ordered: ED Orders 04/22/24 06:40 CBC Auto Diff [Complete Blood Count AUTO DIFF] Stat CMP [Comprehensive Metabolic Panel] Stat 04/22/24 06:44 UA Complete [Urinalysis and Microscopic] Stat 04/22/24 07:39 Chest [XR chest 1V] Stat Vital Signs Vital signs: Vital Signs - 8 hr 04/22/24 06:35 04/22/24 08:41 04/22/24 09:06 Temperature 95.7 F L Pulse Rate 63 69 69 Respiratory Rate 18 16 16 Blood Pressure 148/70 H 148/70 H 131/63 Pulse Oximetry 96 94 96 Oxygen Delivery Method Room Air Room Air Room Air MDM - Altered Mental Status Lab Data 04/22/24 06:40 04/22/24 06:40 Labs: Lab Results 04/22/24 Range/Units 06:40 WBC 12.8 H (4.5-11.0) X10^3/uL RBC 3.05 L (4.5-5.9) X10^6/uL Hgb 9.1 L (13.5-17.5) g/dL Hct 27.0 L (41-53) % MCV 88.8 (80-100) fL MCH 29.9 (26-34) PG MCHC 33.7 (30-36) % RDW 13.4 (11.6-14.8) % Plt Count 662 H (150-400) X10^3/uL Neut % (Auto) 84.6 H (50-75) % Lymph % (Auto) 8.2 L (25-40) % [place] % (Auto) 5.0 (3-14) % Eos % (Auto) 1.6 L (2-4) % Baso % (Auto) 0.6 (0-2) % Neut # (Auto) 13034 H (0962-9982) /uL Lymph # (Auto) 1100 (7069-5739) /uL [place] # (Auto) 600 (0-900) /uL Eos # (Auto) 200 (0-450) /uL Baso # (Auto) 100 (0-100) /uL Sodium 134 L (137-145) mmol/L Potassium 4.6 (3.4-5.1) mmol/L Chloride 100 (98-107) mmol/L Carbon Dioxide 29 (22-32) mmol/L BUN 25 H (9-20) mg/dL Creatinine 0.68 (0.66-1.25) mg/dL Estimated GFR > 60 (>60) mL/min BUN/Creatinine Ratio 36.8 H (6-22) Glucose 232 H (80-110) mg/dL Calcium 8.8 (8.4-10.2) mg/dL Total Bilirubin 0.4 (0.2-1.3) mg/dL AST 19 (17-59) IU/L ALT 13 (<50) IU/L Alkaline Phosphatase 95 (38-126) U/L Total Protein 6.6 (6.3-8.2) g/dL Albumin 3.7 (3.5-5.0) g/dL Globulin 2.9 (1.7-4.1) g/dL Albumin/Globulin Ratio 1.3 (1.0-2.8) Point of Care Testing Glucose POC 153 MDM Narrative Medical decision making narrative: 64-year-old who was found to be hypoglycemic and altered upon awakening this morning. Had a glucose is 60 dropped a 37. He did have his regular long-acting insulin last night had minimal input for food and dinner time. Unclear if patient has had any weight loss recently but did have a bypass week and a half ago. Patient was fed and did not have improvement of his glucose so was started on dextrose by EMS. Was 97 here in the department with improvement of mentation. Patient was fed, continued to be monitored, repeat glucose checks have been 110 followed by 153 at 9:00 a.m.. Patient continues to be asymptomatic. He has been eating and drinking without issue. White count of 12.8 hemoglobin of 9.1 platelets of 6 6 2. Patient did have a drop from 04/06/2024 but did have recent significant surgery. Sodium is 134, electrolytes are otherwise appropriate BUN 25, glucose is 232. LFTs were appropriate. Chest x-ray shows no acute change. Patient has follow up tomorrow with primary care discussed no additional insulin this morning. He is eating and drinking well can use his insulin tonight. Discharge Plan Departure Patient Disposition: Home Clinical Impression: Hypoglycemia Instructions: DI for Hypoglycemia Activity Restrictions/Additional Instructions: Please follow up with your primary care physician. Do not take your insulin this morning. If you are eating and drinking regularly throughout the day today you can use your evening insulin. Please return for any recurrent symptoms, altered mental status, recurrent low blood glucose that does not respond to food, new chest pain or shortness of breath, vomiting or other new or concerning changes. Prescriptions: No Action hydrocodone-acetaminophen 5-325 mg tablet 1 tab PO Q6H PRN (Reason: pain) amlodipine 5 mg tablet 5 mg PO DAILY aspirin 81 mg tablet,delayed release (DR/EC) 81 mg PO DAILY trazodone 100 mg tablet 100 mg PO ONCE PM PRN (Reason: insomnia) gabapentin 300 mg capsule See Rx Instructions .ROUTE .COMPLEX Rx Instructions: Pt reports he takes 3 tabs PRN nightly glipizide-metformin 5-500 mg tablet 2 tab PO BID Humulin N NPH Insulin KwikPen 100 unit/mL (3 mL) insulin pen 5 unit SUBCUT BID Stand Alone Forms: Patient Portal/API
--- NOTE | 2024-04-22 07:39 | DI.RAD.S_ITS ---
PROCEDURE: XR CHEST 1V INDICATIONS: hypoglycemia TECHNIQUE: One view of the chest was acquired. COMPARISON: [facility], CR, XR CHEST 1V, 04/06/2024, 17:53. FINDINGS: Surgical changes and devices: Post median sternotomy. Lungs and pleura: Lungs are clear. No pleural effusions or pneumothorax. Mediastinum: Mediastinal contours appear unchanged. Heart size is normal. Bones and chest wall: No suspicious bony lesions. Overlying soft tissues appear unremarkable. IMPRESSION: No acute cardiopulmonary abnormality is seen. Dictated by: Ilir Reagan M.D. on 04/22/2024 at 7:59 Approved by: Ilir Reagan M.D. on 04/22/2024 at 8:00
[2024-04-22 08:41] VITALS: BP 148/70; PULSE 69; RESP 16; O2SAT 94
[2024-04-22 09:06] VITALS: BP 131/63; PULSE 69; RESP 16; O2SAT 96
[2024-04-22 10:04] VITALS: BP 122/67; PULSE 70; RESP 16; O2SAT 100
== END 2024-04-22 10:05 | disposition home or self-care (01) ==
PROVIDERS: Emergency Medicine; Emergency Provider Emergency Medicine
DX: E11.649 Type 2 diabetes mellitus with hypoglycemia without coma (principal); Z79.4 Long term (current) use of insulin
CPT/HCPCS: 71045; 80053; 82962; 85025; 99282; 99284

== ENCOUNTER 2024-07-10 23:47 | Inpatient (IN) | payer OTHER, SELFPAY ==
[2024-07-10 23:58] VITALS: BP 152/67; PULSE 65; O2SAT 98
--- NOTE | 2024-07-10 23:59 | EKG_ITS ---
[address] [address] Test Date: 2024-07-11 Pat Name: Yonny Chen Department: Room: A Gender: Male Facility Assistant: SHELBY : 1960 Requested By: Order Number: [id number] Reading MD: Herve Sneed Measurements Intervals [place] Rate: 66 P: 37 [place]: 150 QRS: 36 QRSD: 86 T: 91 QT: 440 QTc: 461 Interpretive Statements Normal sinus rhythm Nonspecific T wave abnormality Electronically Signed On 07-11-2024 15:20:06 PDT by Herve Sneed
[2024-07-11] VITALS (22 sets, daily range): BP systolic 108–197; BP diastolic 59–92; PULSE 63–74; RESP 11–18; TEMP 36–36.8; O2SAT 96–100; BMI 22.8; BMI 22.9
--- NOTE | 2024-07-11 00:08 | ED.GENADULT ---
HPI - General Adult General Chief complaint: Altered Mental Status Stated complaint: thinks he had a stroke Time Seen by Provider: 07/10/24 23:58 Source: patient and family Mode of arrival: Ambulatory Limitations: no limitations History of Present Illness HPI narrative: Patient is a 64-year-old male. History of insulin-dependent diabetes, coronary artery disease. Had a three-vessel coronary artery bypass graph earlier this year. He was also currently wearing a ZIO patch for evaluation of syncopal episodes that he was having earlier this year as well. Patient went to bed at approximately 2000 hours although patient and who is at bedside are not done 100% sure that this was has been time. He woke up approximately 15-30 minutes prior to arrival here in the emergency department use the restroom. He noticed that he was having balance issues. His also states that he was very slow to answer questions. Seemed to be somewhat confused as to where he was and thought that potentially he was slurring his words. Upon arrival here in the emergency department his states that his symptoms have improved somewhat but not completely back to normal. Patient denies chest pain, shortness of breath, abdominal pain, nausea vomiting, headache, vision changes then difficult for him to describe the symptoms he was having. He states that it was not a vertigo sensation just an unsteadiness. He did not necessarily appreciate any particular weakness in his upper and lower extremities. He admits that he knows what words he would like to say but difficult time saying them. Related Data Home Medications Medication Instructions Recorded Confirmed amlodipine 5 mg tablet 5 mg PO DAILY 04/06/24 04/06/24 aspirin 81 mg tablet,delayed 81 mg PO DAILY 04/06/24 04/06/24 release gabapentin 300 mg capsule See Rx Instructions .Route .COMPLEX 04/06/24 04/06/24 glipizide 5 mg-metformin 500 mg 2 tab PO BID 04/06/24 04/06/24 tablet hydrocodone 5 mg-acetaminophen 325 1 tab PO Q6H PRN pain 04/06/24 04/06/24 mg tablet insulin NPH isoph U-100 human 100 5 unit SUBCUT BID 04/06/24 04/06/24 unit/mL (3 mL) subcutaneous pen (Humulin N NPH U-100 Insulin KwikPen) trazodone 100 mg tablet 100 mg PO ONCE PM PRN insomnia 04/06/24 04/06/24 Allergies Allergy/AdvReac Type Severity Reaction Status Date / Time No Known Drug Allergies Allergy Verified 04/06/24 15:50 Review of Systems Review of Systems ROS Unobtainable: All systems reviewed & are unremarkable except as noted in HPI and below Patient History Medical History Diabetes Coronary artery disease Social History Smoking Status: Never smoker Smoking Status: Never smoker alcohol intake frequency: holidays/special occasions only Substance Use Type: does not use Exam Initial Vital Signs Initial Vital Signs: Vital Signs Pulse Rate 65 07/10/24 23:58 Blood Pressure 152/67 H 07/10/24 23:58 Pulse Oximetry 98 07/10/24 23:58 Const General: cooperative, comfortable, No acute distress and No ill appearing HENMT Head: normal to inspection and normocephalic Face and sinus: normal facial exam Mouth: oral mucosae normal Eyes EOM: EOM intact bilaterally Resp Effort & Inspection: normal respiratory effort Auscultation: clear to auscultation bilaterally Cardio Rate: regular rate Rhythm: regular rhythm GI Inspection: normal to inspection and non-distended Palpation: soft and No tender Skin Other: Surgical scar midline chest consistent with stated surgical history appears well without signs of infection Neuro General: patient alert, patient awake, patient oriented x3 and moves all extremities Cognition: normal cognition Speech: abnormal speech Motor: strength 5/5 throughout Sensory Exam: no sensory deficits noted Coordination: flpajk-za-roqp test normal and bpmf-dy-next test normal Extrem General: normal to inspection, capillary refill normal and No edema Psych Appearance: grossly normal and well kempt Scores GCS Wilber coma scale eye opening: Spontaneous [place] coma scale verbal response: Orientated [place] coma scale motor response: Obey commands [place] coma scale total score: 15 NIH Stroke Scale Level of Conciousness: Alert, keenly responsive Ask month/age: Answers both questions correctly. Open/close eyes, close hand: Performs both tasks correctly Best gaze horizontal: Normal Visual alvarez: No visual loss Facial palsy: Normal symetrical movement Left arm drift: No drift for full 10 sec Right arm drift: No drift for full 10 sec Left leg drift: No drift for full 5 sec Right leg drift: No drift for full 5 sec Limb ataxia: Absent Sensory on face/arms/legs: Normal, no sensory loss Best language: No aphasia, normal Dysarthria: Normal Extinction or inattention: No abnormality Total NIH Stroke scale score: 0 Course Orders Ordered: ED Orders 07/10/24 23:59 EKG-12 Lead Stat 07/11/24 00:09 CT angio head and neck Stat CT head/brain wo con Stat Vital Signs Vital signs: Vital Signs - 8 hr 07/10/24 23:58 07/10/24 23:58 07/11/24 00:00 Temperature Pulse Rate 65 Respiratory Rate Blood Pressure 152/67 H Pulse Oximetry 98 98 Oxygen Delivery Method 07/11/24 00:02 07/11/24 00:03 07/11/24 00:03 Temperature 98.3 F Pulse Rate 66 65 Respiratory Rate 18 14 Blood Pressure 121/59 L 148/71 H Pulse Oximetry 98 99 Oxygen Delivery Method Room Air 07/11/24 00:13 07/11/24 00:13 07/11/24 00:14 Temperature Pulse Rate 65 Respiratory Rate 12 Blood Pressure 133/65 131/66 Pulse Oximetry 98 Oxygen Delivery Method 07/11/24 00:14 07/11/24 00:16 07/11/24 00:16 Temperature Pulse Rate 64 64 Respiratory Rate 15 Blood Pressure 122/62 Pulse Oximetry 98 98 Oxygen Delivery Method 07/11/24 00:17 07/11/24 00:17 07/11/24 00:18 Temperature Pulse Rate 63 Respiratory Rate Blood Pressure 117/63 108/59 L Pulse Oximetry 98 Oxygen Delivery Method 07/11/24 00:18 07/11/24 00:35 07/11/24 00:37 Temperature Pulse Rate 63 70 66 Respiratory Rate 14 18 Blood Pressure Pulse Oximetry 98 97 97 Oxygen Delivery Method 07/11/24 00:37 07/11/24 00:45 07/11/24 00:45 Temperature Pulse Rate 64 Respiratory Rate 14 Blood Pressure 197/92 H 158/72 H Pulse Oximetry 98 Oxygen Delivery Method 07/11/24 01:00 07/11/24 01:00 07/11/24 01:15 Temperature Pulse Rate 64 Respiratory Rate Blood Pressure 133/62 127/66 Pulse Oximetry 98 Oxygen Delivery Method 07/11/24 01:15 07/11/24 01:30 07/11/24 01:30 Temperature Pulse Rate 63 64 Respiratory Rate 14 16 Blood Pressure 126/60 Pulse Oximetry 98 99 Oxygen Delivery Method 07/11/24 01:45 07/11/24 01:45 Temperature Pulse Rate 66 Respiratory Rate 11 L Blood Pressure 115/60 Pulse Oximetry 99 Oxygen Delivery Method Room Air Medical Decision Making Medical Records Medical records reviewed: Yes I reviewed the patient's medical records. Lab Data Lab results reviewed: Yes I reviewed the patient's lab results. 07/10/24 00:13 07/10/24 00:13 Labs: Lab Results 07/10/24 Range/Units 00:13 WBC 6.1 (4.5-11.0) X10^3/uL RBC 3.99 L (4.5-5.9) X10^6/uL Hgb 10.9 L (13.5-17.5) g/dL Hct 33.1 L (41-53) % MCV 82.9 (80-100) fL MCH 27.3 (26-34) PG MCHC 32.9 (30-36) % RDW 17.1 H (11.6-14.8) % Plt Count 391 (150-400) X10^3/uL Neut % (Auto) 47.7 L (50-75) % Lymph % (Auto) 40.1 H (25-40) % [place] % (Auto) 8.1 (3-14) % Eos % (Auto) 3.3 (2-4) % Baso % (Auto) 0.8 (0-2) % Neut # (Auto) 2900 (0610-7290) /uL Lymph # (Auto) 2400 (4147-1160) /uL [place] # (Auto) 500 (0-900) /uL Eos # (Auto) 200 (0-450) /uL Baso # (Auto) 0 (0-100) /uL PT 11.8 (9.4-12.5) SECONDS INR 1.0 (0.9-1.3) APTT 32 (25.1-36.5) SECONDS Sodium 138 (137-145) mmol/L Potassium 4.0 (3.4-5.1) mmol/L Chloride 101 (98-107) mmol/L Carbon Dioxide 27 (22-32) mmol/L BUN 18 (9-20) mg/dL Creatinine 0.69 (0.66-1.25) mg/dL Estimated GFR > 60 (>60) mL/min BUN/Creatinine Ratio 26.1 H (6-22) Glucose 181 H (80-110) mg/dL Calcium 9.5 (8.4-10.2) mg/dL Total Bilirubin 0.4 (0.2-1.3) mg/dL AST 21 (17-59) IU/L ALT 19 (<50) IU/L Alkaline Phosphatase 119 (38-126) U/L Total Creatine Kinase 32 L (55-170) U/L Troponin I < 0.012 (0.01-0.034) ng/mL Total Protein 7.3 (6.3-8.2) g/dL Albumin 4.1 (3.5-5.0) g/dL Globulin 3.2 (1.7-4.1) g/dL Albumin/Globulin Ratio 1.3 (1.0-2.8) Lipase 269 (23-300) U/L Ethyl Alcohol < 10 ( - 10) mg/dL Point of Care Testing Glucose POC 176 Point of care testing: Point of Care Testing Glucose POC [address] scan - head: Radiologist's Impression: PROCEDURE: CT HEAD/BRAIN WO CON INDICATIONS: Dysarthria, balance issues TECHNIQUE: Noncontrast 4.5 mm thick angled axial sections acquired from the foramen magnum to the vertex, with coronal and sagittal reformats. For radiation dose reduction, the following was used: automated exposure control, adjustment of mA and/or kV according to patient size. COMPARISON: None. FINDINGS: Image quality: Diagnostic. CSF spaces: Basal cisterns are patent. No extra-axial fluid collections. Ventricles are normal in size and shape. Brain: No midline shift. No intracranial masses or hemorrhage. Chappell-white matter interface is normal. Skull and face: Calvarium and visualized facial bones are intact, without suspicious lesions. Sinuses: Visualized sinuses and mastoids are clear. IMPRESSION: No acute intracranial pathology. CTA - brain/neck: Radiologist's Impression: PROCEDURE: CT ANGIO HEAD AND NECK INDICATIONS: Dysarthria, balance issues TECHNIQUE: After the administration of intravenous contrast, 1 mm thick sections acquired from the aortic arch through the [place] of [place]. 3-dimensional irhevpi-mtotqrkbv-yctcwqgpof (MIP) and/or volume rendering reformats were acquired of the central intracranial vasculature and neck separately. For radiation dose reduction, the following was used: automated exposure control, adjustment of mA and/or kV according to patient size. COMPARISON: [facility], CT, CT HEAD/BRAIN WO CON, 07/11/2024, 0:16. FINDINGS: Image quality: Diagnostic. BRAIN: CSF spaces: Ventricles are normal in size and shape. Basal cisterns are patent. No extra-axial fluid collections. Brain: No significant abnormality of the brain can be seen. Skull and face: Calvarium and facial bones appear intact, without suspicious lesions. Orbits appear normal. Sinuses: Sinuses and mastoids are clear. HEAD CT ANGIOGRAPHY: Anterior circulation: Intracranial internal carotid arteries are normal in size and flow. The flow within the paired anterior cerebral arteries is normal and symmetric. The flow within the middle cerebral arteries is normal and symmetric. The anterior communicating artery is seen. No aneurysms are seen. Posterior circulation: Visualized portions of the vertebral arteries demonstrate normal caliber, and join to form a normal appearing basilar artery. Flow within the posterior cerebral arteries is normal and symmetric. No aneurysms are seen. NECK CT ANGIOGRAPHY: Carotid system: The great vessels demonstrate a conventional anatomy as they arise from the aortic arch. The origins of the common carotid arteries appear patent. The common carotid arteries demonstrate normal caliber and courses. The bifurcation regions are both widely patent. The internal carotid arteries demonstrate normal calibers and courses. Posterior circulation: The origins of the vertebral arteries both appear widely patent. The more superior extracranial portions of both vertebral arteries also demonstrate normal courses and calibers. They join to form a normal appearing basilar artery. Soft tissues: Visualized neck soft tissues demonstrate no suspicious abnormalities. Bones: No suspicious bony lesions. Visualized cervical spine appears normally aligned. IMPRESSION: No significant intracranial arterial abnormality is seen. No significant abnormality is seen within the arteries of the neck. Any quantitative measurements of stenosis were performed using NASCET criteria. ECG Data Attestation: I personally reviewed and interpreted this ECG as follows: Interpretation: Sinus rhythm Ventricular rate is 66 Normal axis Normal QRS Normal QTC Nonspecific ST T wave changes MDM Narrative Medical decision making narrative: Unsure of the exact last known normal time but potentially as much as 4 hours prior to arrival here in the emergency department. Patient woke up with symptoms approximately 30 minutes prior to arrival here in the ER. According to his who is at bedside she thinks that maybe his symptoms are improving. Technically patient has a NIH score of 0 because he is able to do mxgqrk-po-zuqa and lyog-vm-dcgi but you can tell that he obviously has more difficulty with his left lower extremity compared to his right lower extremity with the heel to winn. He also was not slurring his words but he was talking very slow and you can tell that he was to concentrate very hard in order to express what he was trying to say. His head CT is unremarkable. CTA of the head and neck is unremarkable. He was not hypoglycemic. Alcohol level was negative. No other signs of intoxication. Labs are relatively unremarkable. Given his NIH score is 0 and potential improvement of symptoms and lack of a definitive last known well time patient is not a candidate for tPA. CTA of the head and neck does not show a large vessel occlusion. Patient is obviously having new neurologic symptoms and I feel that admission to the hospital for further evaluation and potentially echocardiogram and cardiac monitoring an MRI would be warranted. Patient does not have contraindications for MRI. Discussed the case with Dr. Arcos hospitalist on-call who will admit for further evaluation and treatment. Discussed the need for admission with the patient. He expressed understanding and agreement with plan. Discharge Plan Departure Patient Disposition: Admitted as Observation Clinical Impression: Brain TIA, Hyperglycemia
[2024-07-11 00:23] LABS: Add Manual Diff / Slide Review NO; Basophils Absolute Auto 0 /uL (0-100); Basophils Percent Auto 0.8 % (0-2); Eosinophils Absolute Auto 200 /uL (0-450); Eosinophils Percent Auto 3.3 % (2-4); Hematocrit 33.1 % (41-53); Hemoglobin 10.9 g/dL (13.5-17.5); Lymphocytes Absolute Auto 2400 /uL (1100-4500); Lymphocytes Percent Auto 40.1 % (25-40); Mean Corpuscular HGB Conc 32.9 % (30-36); Mean Corpuscular Hemoglobin 27.3 PG (26-34); Mean Corpuscular Volume 82.9 fL (80-100); Monocytes Absolute Auto 500 /uL (0-900); Monocytes Percent Auto 8.1 % (3-14); Neutrophils Absolute Auto 2900 /uL (1500-7000); Neutrophils Percent Auto 47.7 % (50-75); Platelet Count 391 X10^3/uL (150-400); Red Blood Cell Count 3.99 X10^6/uL (4.5-5.9); Red Cell Distribution Width 17.1 % (11.6-14.8); White Blood Cell Count 6.1 X10^3/uL (4.5-11.0)
[2024-07-11 00:32] LABS: Prothrombin Time 11.8 SECONDS (9.4-12.5)
[2024-07-11 00:34] LABS: PTT Partial Thromboplastin Tim 32 SECONDS (25.1-36.5)
[2024-07-11 00:35] LABS: Alanine Aminotransferase 19 IU/L (<50); Albumin 4.1 g/dL (3.5-5.0); Albumin Globulin Ratio 1.3 (1.0-2.8); Alkaline Phosphatase 119 U/L (38-126); Aspartate Aminotransferase 21 IU/L (17-59); BUN Creatinine Ratio 26.1 (6-22); Bilirubin Total 0.4 mg/dL (0.2-1.3); Blood Urea Nitrogen 18 mg/dL (9-20); Calcium 9.5 mg/dL (8.4-10.2); Carbon Dioxide 27 mmol/L (22-32); Chloride 101 mmol/L (98-107); Creatine Kinase 32 U/L (55-170); Estimated Glomerular Filt Rate > 60 mL/min (>60); Ethanol (ETOH) < 10 mg/dL; Globulin 3.2 g/dL (1.7-4.1); Glucose 181 mg/dL (80-110); HEMOLYSIS < 15 (0-50); Lipase 269 U/L (23-300); Sodium 138 mmol/L (137-145); Total Protein 7.3 g/dL (6.3-8.2)
[2024-07-11 00:46] LABS: Troponin I < 0.012 ng/mL (0.01-0.034)
--- NOTE | 2024-07-11 04:16 | PC.NURSE ---
Addendum entered by Concepción Patel R.N. 07/11/24 05:00: BS at admission- 147 Original Note: Patient admitted to AC unit from ED at 02:50. Alert and oriented x 4, delayed speech. Stand pivot transfer to bed with 2PA. Pt and significant other unable to review medications. Oriented to room and call light, bed alarm on.
[2024-07-11 05:54] LABS: Add Manual Diff / Slide Review NO; Basophils Absolute Auto 100 /uL (0-100); Basophils Percent Auto 0.8 % (0-2); Eosinophils Absolute Auto 200 /uL (0-450); Eosinophils Percent Auto 2.1 % (2-4); Hematocrit 32.8 % (41-53); Lymphocytes Absolute Auto 1500 /uL (1100-4500); Lymphocytes Percent Auto 20.4 % (25-40); Mean Corpuscular HGB Conc 33.5 % (30-36); Mean Corpuscular Hemoglobin 27.7 PG (26-34); Mean Corpuscular Volume 82.6 fL (80-100); Monocytes Absolute Auto 400 /uL (0-900); Monocytes Percent Auto 5.5 % (3-14); Neutrophils Absolute Auto 5300 /uL (1500-7000); Neutrophils Percent Auto 71.2 % (50-75); Platelet Count 361 X10^3/uL (150-400); Red Blood Cell Count 3.97 X10^6/uL (4.5-5.9); Red Cell Distribution Width 17.8 % (11.6-14.8); White Blood Cell Count 7.4 X10^3/uL (4.5-11.0)
[2024-07-11 06:24] LABS: Alanine Aminotransferase 18 IU/L (<50); Albumin Globulin Ratio 1.3 (1.0-2.8); Alkaline Phosphatase 98 U/L (38-126); Aspartate Aminotransferase 19 IU/L (17-59); Bilirubin Total 0.5 mg/dL (0.2-1.3); Blood Urea Nitrogen 17 mg/dL (9-20); Calcium 9.5 mg/dL (8.4-10.2); Carbon Dioxide 29 mmol/L (22-32); Chloride 100 mmol/L (98-107); Cholesterol 124 mg/dL (140-199); Estimated Glomerular Filt Rate > 60 mL/min (>60); Glucose 184 mg/dL (80-110); HDL Cholesterol 32 mg/dL (40-60); HEMOLYSIS < 15 (0-50); LDL Cholesterol Calculated 78 mg/dL (<100); Potassium 4.3 mmol/L (3.4-5.1); Sodium 137 mmol/L (137-145); Triglycerides 68 mg/dL (35-150)
--- NOTE | 2024-07-11 07:02 | P.HP_ITS ---
History of Present Illness History of Present Illness Date Patient Seen: 07/11/24 Chief complaint: thinks he had a stroke Narrative: 64 y/o with PMH of HTN, CAD, DM, went to sleep on 07/10 around 8-9 pm after he watched TV with his girlfriend, woke up few hours ago to go to bathroom and was dizzy, with impaired balance and acted confused. He had difficulty speaking as well. ED workup with non-revealing CTH and CTA of head and neck. Stable vital signs. Placed in observation with TIA/CVA. [facility] Medical History (Updated 07/11/24 @ 07:13 by Dorian Cooney MD) HTN (hypertension) Diabetes Coronary artery disease Social History household members: significant other Smoking Status: Never smoker Meds Home Medications and Allergies Home Medications Medication Instructions Recorded Confirmed Type amlodipine 5 mg tablet 5 mg PO DAILY 04/06/24 04/06/24 History aspirin 81 mg tablet,delayed 81 mg PO DAILY 04/06/24 04/06/24 History release gabapentin 300 mg capsule See Rx Instructions .Route .COMPLEX 04/06/24 04/06/24 History glipizide 5 mg-metformin 500 mg 2 tab PO BID 04/06/24 04/06/24 History tablet hydrocodone 5 mg-acetaminophen 325 1 tab PO Q6H PRN pain 04/06/24 04/06/24 History mg tablet insulin NPH isoph U-100 human 100 5 unit SUBCUT BID 04/06/24 04/06/24 History unit/mL (3 mL) subcutaneous pen (Humulin N NPH U-100 Insulin KwikPen) trazodone 100 mg tablet 100 mg PO ONCE PM PRN insomnia 04/06/24 04/06/24 History Allergies Allergy/AdvReac Type Severity Reaction Status Date / Time No Known Drug Allergies Allergy Verified 04/06/24 15:50 Review of Systems Constitutional Comments: w/o fever, chills, weight loss Eyes Comments: w/o vision changes ENT Comments: w/o congestion Cardiovascular Comments: has Zio patch placed several days ago for dizziness, presyncopal episodes Without chest pain, w/o palpitations Had CABG in November this year Respiratory Comments: w/o shortness of breath Gastrointestinal Comments: w/o complaints Neurologic Comments: loss of balance, difficulty speaking Exam Vital Signs (past 8 hours): - 07/10/24 23:58 07/10/24 23:58 07/11/24 00:00 Temperature Pulse Rate 65 Respiratory Rate Blood Pressure 152/67 H Pulse Oximetry 98 98 Oxygen Delivery Method 07/11/24 00:02 07/11/24 00:03 07/11/24 00:03 Temperature 98.3 F Pulse Rate 66 65 Respiratory Rate 18 14 Blood Pressure 121/59 L 148/71 H Pulse Oximetry 98 99 Oxygen Delivery Method Room Air 07/11/24 00:13 07/11/24 00:13 07/11/24 00:14 Temperature Pulse Rate 65 Respiratory Rate 12 Blood Pressure 133/65 131/66 Pulse Oximetry 98 Oxygen Delivery Method 07/11/24 00:14 07/11/24 00:16 07/11/24 00:16 Temperature Pulse Rate 64 64 Respiratory Rate 15 Blood Pressure 122/62 Pulse Oximetry 98 98 Oxygen Delivery Method 07/11/24 00:17 07/11/24 00:17 07/11/24 00:18 Temperature Pulse Rate 63 Respiratory Rate Blood Pressure 117/63 108/59 L Pulse Oximetry 98 Oxygen Delivery Method 07/11/24 00:18 07/11/24 00:35 07/11/24 00:37 Temperature Pulse Rate 63 70 66 Respiratory Rate 14 18 Blood Pressure Pulse Oximetry 98 97 97 Oxygen Delivery Method 07/11/24 00:37 07/11/24 00:45 07/11/24 00:45 Temperature Pulse Rate 64 Respiratory Rate 14 Blood Pressure 197/92 H 158/72 H Pulse Oximetry 98 Oxygen Delivery Method 07/11/24 01:00 07/11/24 01:00 07/11/24 01:15 Temperature Pulse Rate 64 Respiratory Rate Blood Pressure 133/62 127/66 Pulse Oximetry 98 Oxygen Delivery Method 07/11/24 01:15 07/11/24 01:30 07/11/24 01:30 Temperature Pulse Rate 63 64 Respiratory Rate 14 16 Blood Pressure 126/60 Pulse Oximetry 98 99 Oxygen Delivery Method 07/11/24 01:45 07/11/24 01:45 07/11/24 02:00 Temperature Pulse Rate 66 66 Respiratory Rate 11 L 14 Blood Pressure 115/60 Pulse Oximetry 99 99 Oxygen Delivery Method Room Air 07/11/24 02:00 07/11/24 02:15 07/11/24 02:15 Temperature Pulse Rate 67 Respiratory Rate 13 Blood Pressure 138/65 136/65 Pulse Oximetry 99 Oxygen Delivery Method 07/11/24 02:30 07/11/24 02:30 07/11/24 02:31 Temperature Pulse Rate 66 Respiratory Rate 13 Blood Pressure 125/60 Pulse Oximetry 98 Oxygen Delivery Method Room Air 07/11/24 02:31 Temperature 96.8 F L Pulse Rate 69 Respiratory Rate 18 Blood Pressure 128/68 Pulse Oximetry 99 Oxygen Delivery Method Oxygen Delivery Method Room Air Const Other: in no distress, laying in bed, sleepy, girlfriend at bedside HENMT Other: normocephalic Eyes Other: reactive pupils, EOMI Neck Other: supple Resp Other: normal respiratory effort Cardio Other: Zio patch - needs to remove before MRI RRR GI Other: soft abdomen, not distended Neuro Other: dysarthria, Lt arm dysmetria, loss of balance Extrem Other: w/o swelling Psych Other: flat affect Objective Labs 07/11/24 05:04 07/11/24 05:04 Labs: Laboratory Results - last 24 hr 07/10/24 07/11/24 00:13 05:04 WBC 6.1 7.4 RBC 3.99 L 3.97 L Hgb 10.9 L 11.0 L Hct 33.1 L 32.8 L MCV 82.9 82.6 MCH 27.3 27.7 MCHC 32.9 33.5 RDW 17.1 H 17.8 H Plt Count 391 361 Neut % (Auto) 47.7 L 71.2 D Lymph % (Auto) 40.1 H 20.4 L [place] % (Auto) 8.1 5.5 Eos % (Auto) 3.3 2.1 Baso % (Auto) 0.8 0.8 Neut # (Auto) 2900 5300 Lymph # (Auto) 2400 1500 [place] # (Auto) 500 400 Eos # (Auto) 200 200 Baso # (Auto) 0 100 PT 11.8 INR 1.0 APTT 32 Sodium 138 137 Potassium 4.0 4.3 Chloride 101 100 Carbon Dioxide 27 29 BUN 18 17 Creatinine 0.69 0.68 Estimated GFR > 60 > 60 BUN/Creatinine Ratio 26.1 H 25.0 H Glucose 181 H 184 H Calcium 9.5 9.5 Total Bilirubin 0.4 0.5 AST 21 19 ALT 19 18 Alkaline Phosphatase 119 98 Total Creatine Kinase 32 L Troponin I < 0.012 Total Protein 7.3 7.0 Albumin 4.1 4.0 Globulin 3.2 3.0 Albumin/Globulin Ratio 1.3 1.3 Triglycerides 68 Cholesterol 124 L LDL Cholesterol, Calc 78 HDL Cholesterol 32 L Lipase 269 Ethyl Alcohol < 10 Assessment & Plan Assessment and plan (1) Brain TIA: Status: Acute (2) HTN (hypertension): Status: Acute (3) Diabetes: Status: Acute Assessment & Plan narrative: TIA / CVA - MRI pending - fasting lipids, MRI pending - on ASA already for CAD CAD - w/o angina - ASA Suspected Arrhythmia / Presyncopal Episodes - Zio patch - needs to be removed prior to MRI HTN - held Norvasc - NS for permissive HTN DM - NPH, SS, CCD - A1C pending DVT prophylaxis - Lovenox Time-Based Coding :: [TOTAL MINUTES] spent with patient and on the chart (including review of chart, obtaining history, exam, reviewing outside data, placing orders, documenting exam and treatment plan, and counseling patient) on [DATE].
--- NOTE | 2024-07-11 07:19 | DI.MRI.S_ITS ---
PROCEDURE: MR HEAD/BRAIN WO CON INDICATIONS: suspected stroke TECHNIQUE: Noncontrast axial T1 spin echo, axial T2 fast spin echo, sagittal and axial FLAIR, coronal T2 fast spin echo, axial gradient echo, axial diffusion and ADC through the brain. COMPARISON: [facility], CT, CT HEAD/BRAIN WO CON, 07/11/2024, 0:16. [facility], CT, CT ANGIO HEAD AND NECK, 07/11/2024, 0:16. FINDINGS: Image quality: Image quality mildly degraded by patient motion artifact. CSF Spaces: Basal cisterns are patent. No extra-axial fluid collections. Ventricles are normal in size and shape. Brain: No intracranial masses or hemorrhage. Chappell/white matter interface is normal. Brainstem appears normal. Diffusion-weighted images demonstrate no acute infarct. No chronic ischemic insults. Normal intravascular flow voids are present. Skull and face: Calvarium has normal marrow signal. Orbits appear normal. Sinuses: Mucosal thickening in the maxillary sinuses. mastoids are clear. IMPRESSION: No acute intracranial disease process. No acute or chronic infarct. No intracranial hemorrhage or abnormal intracranial mass. Dictated by: Saundra Milian MD, PhD on 07/11/2024 at 11:15 Approved by: Saundra Milian MD, PhD on 07/11/2024 at 11:17
--- NOTE | 2024-07-11 07:20 | DI.ECHO.S_ITS ---
[facility] : : [address] : : [place] : : [id number] : : Phone: [phone] Echocardiogram Report + :Name: CORINA MELO Study Date: 07/11/2024 Height: 65 in : :[facility] ReadingLocation: Weight: 137 lb : : Gender: Male BSA: 1.7 m2 : :: 1960 Age: 64 yrs BP: 128/68 mmHg: :Reason For Study: STROKE : :Ordering Physician: CARLOS RUIZ, : :MCKINLEY CHAUDHRY Performed By: Neda Sanchez : :Referring: MCKINLEY MCGILL MD : + Interpretation Summary The ejection fraction is estimated to be 55-60%. Diastolic parameters suggest probable normal left ventricular diastolic function and normal filling pressures. The right ventricle is normal in size and function. There is mild mitral regurgitation. Pulmonary artery pressures cannot be estimated because of the lack of a measurable TR jet velocity but the IVC suggests a CVP of around 3 mmHg. Doppler interrogation and injection of saline echo contrast shows no evidence for an interatrial shunt. Procedure: A two-dimensional transthoracic echocardiogram with color flow and Doppler was performed. The study quality was technically adequate. There is no prior echocardiogram noted for this patient. The patient was in sinus rhythm with heart rates between 65-67 bpm during the exam. Left Ventricle: The left ventricle is normal in size and wall thickness. The ejection fraction is estimated to be 55-60%. Diastolic parameters suggest probable normal left ventricular diastolic function and normal filling pressures. Right Ventricle: The right ventricle is normal in size and function. Atria: The left atrial size is normal. Right atrial size is normal. Doppler interrogation and injection of saline echo contrast shows no evidence for an interatrial shunt. Mitral Valve: The mitral valve is normal. There is mild mitral regurgitation. Aortic Valve: The aortic valve is trileaflet. The aortic valve opens well. There is no aortic valve stenosis. No aortic regurgitation is present. Tricuspid Valve: The tricuspid valve is normal in structure and function. There is a trace or physiologic amount of tricuspid regurgitation. Pulmonary artery pressures cannot be estimated because of the lack of a measurable TR jet velocity but the IVC suggests a CVP of around 3 mmHg. Pulmonic Valve: The pulmonic valve leaflets are thin and pliable; valve motion is normal. There is no pulmonic valvular regurgitation. Great Vessels: The aortic root is normal size. The dimensions of the ascending aorta are normal. The IVC is of normal diameter and collapses greater than 50% with a sniff. This suggests a low right atrial pressure of 3 mm Hg. Pericardium/ Pleura There is no pericardial effusion. There is no pleural effusion. MMode/2D Measurements & Calculations LVIDd: 4.6 cm LVOT diam: 2.0 cm LVIDs: 3.4 cm Ao root diam: 3.4 cm FS: 26.7 % asc Aorta Diam: 3.4 cm EPSS: 0.51 cm Ao Arch Diam (Prox Trans): 2.9 cm IVSd: 0.80 cm LVPWd: 0.87 cm LV brothers. diameter/BSA (cm/m^2): 2.7 LV sys. diameter/BSA (cm/m^2): 2.0 LA A2 area: 21.3 cm2 RA long axis: 5.1 cm LA A4 area: 14.1 cm2 RA area: 15.6 cm2 LA length (vol): 4.4 cm RA vol: 41.1 ml LA vol: 58.0 ml RA : 24.4 ml/m2 LA vol index: 34.4 ml/m2 IVC diam: 1.3 cm RVD1 (basal): 3.9 cm TAPSE: 1.5 cm Doppler Measurements & Calculations Ao V2 max: 97.2 cm/sec LVOT Max Erickson: 83.8 cm/sec Ao V2 mean: 69.9 cm/sec LV V1 max P.8 mmHg Ao max P.8 mmHg LV V1 VTI: 18.0 cm Ao mean P.2 mmHg LULU(I,D): 2.8 cm2 Ao V2 VTI: 21.3 cm LULU(V,D): 2.8 cm2 sev ratio: 0.85 LULU indexed to BSA (cm^2/m^2): 1.6 MV E max erickson: 50.2 cm/sec PA V2 max: 78.9 cm/sec MV A max erickson: 48.1 cm/sec PA V2 mean: 54.4 cm/sec MV E/A: 1.0 PA mean P.4 mmHg Med Peak E' Erickson: 5.2 cm/sec PA pr(Accel): 46.5 mmHg E/E' med: 9.7 Lat Peak E' Erickson: 10.9 cm/sec E/E' lat: 4.6 E/e' average: 7.1 MV dec time: 0.30 sec [facility] 58.7 ml Reading Physician:01:07 PM
[2024-07-11] MEDS: SODIUM CHLORIDE 0.9% 1,000 ML 100 ML IV (08:12)
[2024-07-11] MEDS: ENOXAPARIN 40 MG/0.4 ML SYRINGE SUBCUT (08:13)
[2024-07-11] MEDS: INSULIN LISPRO 100 UNIT/ML 3ML VIAL SUBCUT ×2 (08:13→12:02)
[2024-07-11] MEDS: ASPIRIN EC 81 MG TABLET PO (08:13)
[2024-07-11] MEDS: INSULIN NPH 100 UNIT/ML 10ML VIAL SUBCUT ×2 (08:24→21:18)
--- NOTE | 2024-07-11 10:19 | OT.IPNOTE ---
Pt getting an MRI and to check on pt later for OT eval.
--- NOTE | 2024-07-11 10:25 | PC.NURSE ---
Day shift: Notified MD of heart monitor patch and CGM that need to be removed prior to MRI. Also notified MD Sneed of orthostatic hypotension to 69/42 when standing with PT. Patient was symptomatic. MD Sneed stated he still wanted patient to go to MRI and that it was ok to remove heart monitor patch. Will replace when he returns from MRI. Will continue to monitor.
--- NOTE | 2024-07-11 10:35 | PT.IIE ---
Current Diagnoses Type 2 diabetes mellitus without complications (07/11/24) Transient cerebral ischemic attack, unspecified (07/11/24) Essential (primary) hypertension (07/11/24) Medical History (Last Updated 07/11/24 @ 07:13 by Dorian Cooney MD) Coronary artery disease Diabetes HTN (hypertension) Physical Therapy Inpatient Evaluation/Re-Eval M1 PT/OT-IP Prior Functional Status Start: 07/11/24 07:39 Freq: NEEDED Status: Active Protocol: Document 07/11/24 10:03 MB (Rec: 07/11/24 10:35 MB [id number]) Medical Review Prior Functional Status Medical History Reviewed Yes Diet/Fluid Consistency Regular Communication WNLs Mobility and Gait I, recent fall when passed out in BR and similar presentation prior to adm Activities of Daily Living and IADL's 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 Additional Social History Comment Currently out of work and in cardiac rehab after open heart surgery M2 PT-IP Current Condition Start: 07/11/24 07:39 Freq: NEEDED Status: Active Protocol: Document 07/11/24 10:03 MB (Rec: 07/11/24 10:35 MB [id number]) Physical Therapy Current Condition Current Condition Evaluation Date 07/11/24 Treatment Diagnosis Light-headed, syncope M3 PT-IP Subjective Start: 07/11/24 07:39 Freq: NEEDED Status: Active Protocol: Document 07/11/24 10:03 MB (Rec: 07/11/24 10:35 MB [id number]) Subjective Physical Therapy Visit Type Type Initial Evaluation Visit Start Time 10:03 Visit Stop Time 10:19 Number of QC MANAGER Visits 0 Physical Therapy Visit Comments Patient Comments Pt is agreeable to PT and reports that he is light- headed and feels like he is going to pass out when he gets up. SO reports recent similar event and fall from passing out. Recent open heart surgery in March, is in cardiac rehab, was told he needs to eat more salt at cardiac rehab. Therapy Pain Assessment Pain When Pain Assessed At Rest Pain Present Pain Present Denied Pain M4 PT-IP Mobility and Gait Start: 07/11/24 07:39 Freq: NEEDED Status: Active Protocol: Document 07/11/24 10:03 MB (Rec: 07/11/24 10:35 MB [id number]) PT-Bed Mobility Assessment Rolling Type of Rolling Roll to Right Level of Assist Minimal Assistance Supine to Sit Supine to Sit Minimal Assistance,1 Person Assistance Scooting Scooting to Edge of Bed Minimal Assistance PT-Transfer Assessment Sit to and From Stand Sit to and from Stand Moderate Assistance,1 Person Assistance,Use of Upper Extremities Equipment Transfer Assistive Device None Orthotic/Prosthetic Devices or Brace: No Comments Mobility Comments Pt is severely orthostatic and symptomatic with BP and HR in RUE: supine 131/67, 67; standing 69/42, 73; sitting 117/63, 70. Pt attempts to initiate coordination testing sitting EOB and pt must use UE to keep sitting balance and so coordination testing is poor this a.m. and more trouble with left finger to nose and B heel to winn. No spontaneous nystagmus appreciated and PT notes end- range nystagmus with left gaze to the left that may be normal end-range eye fatigue presentation. No diziness in supine at rest. Gait Assessment Comments Gait Comments Unable to gait d/t symptomology with BP drop on PT assessment date PT-Balance Assessment Sitting Balance and Reactions Static Sitting Balance Ability Fair Dynamic Sitting Balance Ability Poor Standing Balance and Reactions Static Standing Balance Ability Poor Dynamic Standing Balance Ability Poor Comments Other Balance Tests/Deviations/Treatment PT manual assistance to : maintain standing balance d/t symptoms and dropping BP M5 PT-IP Objective Assessments Start: 07/11/24 07:39 Freq: NEEDED Status: Active Protocol: Document 07/11/24 10:03 MB (Rec: 07/11/24 10:35 MB [id number]) Orientation Orientation/Cognition Level of Alertness Alert Orientation Name,Age,Birthday,Month,Date, Year,Place,Situation Language Function Ability No Deficits Noted Safety Awareness Decreased Safety Awareness Comments Pt and girlfriend provide slightly different history of events and they do agree that light-headedness and passing out have been recent issues at home and started prior to open heart surgery in March Gross Range of Motion Upper Extremity ROM Impairments Defer to OT Lower Extremity ROM Assessment Within Functional Limits Strength Lower Extremity Strength Assessment Within Functional Limits Hip 5/5 B hip flexion Knee 5/5 B knee extension Ankle 5/5 B ankle DF and great toe extension Coordination Assessment Gross Coordination Gross Coordination Impaired Assessment Finger to Nose Test Moderate Impairment Heel on Winn Test Moderate Impairment Coordination Comments LUE worse than right UE with finger to nose and all coordination testing is very slow Sensation Assessment Comments Sensation Comments MRI transport arrived and PT does not have time to assess Muscle Tone Muscle Tone WNL Yes M6 PT-IP Treatment Start: 07/11/24 07:39 Freq: NEEDED Status: Active Protocol: Document 07/11/24 10:03 MB (Rec: 07/11/24 10:35 MB [id number]) Physical Therapy Treatment Education Education Provided Safety Other Treatments Other Treatment Performed Ed pt and girlfriend about orthostatic hypotension and making fluids count, talk with provider about any other fluid recommendations or restrictions, ed on slow transitional movements M7 PT-IP Assessment and Plan Start: 07/11/24 07:39 Freq: NEEDED Status: Active Protocol: Document 07/11/24 10:03 MB (Rec: 07/11/24 10:35 MB [id number]) PT Summary Assessment and Plan Potential Rehabilitation Potential Fair Status of Condition at Evaluation Unstable Summary Impairments Balance,Coordination,Sensation ,Cognition,Bed Mobility, Transfers,Gait,Activity Tolerance Progress Towards Goals Slow Progress due to Activity Tolerance,Slow Progress - Other Assessment Summary Pt is a 64 y/o male adm with what sounds like syncopal episode. Pt had recent open heart surgery in March and has been going to cardiac rehab. 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 He and girlfriend report at least two episodes of near- syncope and at least one fall d/t passing out. He is severely orthostatic with supine to stand with PT this a .m. and is very symptomatic. Coordination testing is limited in sitting EOB d/t need for UE support for sitting balance after orthostatic assessment. LE strength looks normal. In next PT treatment, further assess coordination, sensation, balance and strength. heating and cooling technician arriving to take pt down for MRI brain. Goals Bed Mobility Goal Independent Transfer Goal Independent,Cane,Front Wheeled Walker Gait Goal Independent,Cane,Front Wheel Walker Gait Distance 100 Other Goals Pt will ascend and descend one platform step with LRAD and no more than CGA to allow safe home entry. Days to Meet Goals 5 Frequency of Treatment Frequency Of Treatment Once a Day Treatment Plan Physical Therapy Treatment Plan Bed Mobility Training,Transfer Training,Gait Training, Therapeutic Exercise,Balance Retraining,Discharge Planning, Hot or Cold Pack,Neuromuscular Re-ed,Coordination Retraining ,Manual Therapy Precautions Other Precautions Severe orthostasis Weight Bearing Status Weight Bearing Status Weight Bear as Tolerated Recommendations To Nursing Amount of Assist Needed 2 Person Assist Discharge Recommendations PT Discharge Recommendations Home with Assistance Transportation Needs at Discharge Private Vehicle,Wheelchair/ Cabulance
--- NOTE | 2024-07-11 12:01 | CM.DANOTE ---
Patient is a 64 yo male who was admitted OBS Status on 07/11/24 for TIA vs CVA. Pt has [employer] and [employer] for insurance and his PCP is Dr. Damon at [facility]. EMR was reviewed. Per MD, pt with recent cardiac surgery at [facility] a few months ago and admitted for TIA/CVA r/o and to have MRI today. Per MRI, no acute findings and no infarct. Per PT, pt had very low bp and limited on ability to participate. Likely able to d/c home with SO assist. SW met bedside with pt, his girlfriend Magnolia, son Dinh and his and explained role. 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 Since his cardiac surgery, pt has been staying with his girlfriend Magnolia in [place] and she has been assisting him. Family frustrated as since his discharge from [facility], pt was not able to get into an outpt f/u appointment with [facility] until recently and was not able to get into Cardiac Rehab until last week at [facility] as all places were full. Pt has no hx of SNF or HH but family feels HH needed at d/c as pt was starting to make good progress last week after Cardiac Rehab and seemed to gain motivation and improvements. Pt had returned the bath seat and FWW to [facility] as he had made progress. Family and girlfriend state that the pt can be very stubborn and wants his independence. Family preference is discharge back to girlfriend Magnolia's house in [place] and requesting HH referral to [facility] as family has had good experience with [facility]. Pt's DPOA is his Dtr Dagmar who lives in [place] and pt's son Dinh and his also live in [place] and very supportive. SW made initial [facility] HH referral and they are reviewing and F2F completed but not faxed yet. Plan: SW to follow closely with further PT/OT/ST to confirm safe plan of home with Sig Other Magnolia and HH vs resume Cardiac Rehab. Waiting for AD Counselors to confirm pt's primary insurance [employer] vs [employer]. Barbara Freitas, CIGARETTE VENDOR Discharge Planning/Care Management CM Discharge Assessment Start: 07/11/24 11:42 Freq: Status: Active Protocol: Document 07/11/24 11:42 BF (Rec: 07/11/24 12:01 BF [id number]) Discharge Planning Assessment Assigned Clothing Examiner FIONA Jimenez DPOA/Assigned Designee Name Dtr Sofiya Le[facility]ham Advance Directives? No Advance Directives on File No History Provided By Patient,Significant Other, Medical Record Has Patient been admitted in last 30 No days? Prior Living Arrangements House Household Members significant other Comment Currently staying with his girlfriend Magnolia in [place] until more independent to move back home alone in [facility] Type of transporation used prior to Drives own vehicle admit Independent with ADL's Yes: needed some assist since open heart surg in March Is patient alert and oriented? some memory issues since open heart surg in March Needs Assistance With Managing Medications,Home Chores / Shopping Caregiver for Another No Comment Just started Cardiac Rehab at [facility] DME Already Rented / Owned FWW / WalkerJorge Luis Comment [facility] Patient/Family Preference Home with Home Health Comment Possible HH pending his orthostatics and ambulation needs Barriers to Discharge No Discharge Plan Home with Home Health Community Services Physical Therapy,Home Health Aid,Home Health Nurse Transportation Arrangement Likely his Sig Other Magnolia or family Referrals Initiated Home Health Additional Comment [facility] referral made If patient plan is home with home health Yes : Has signed face to face form been completed? Medicare Choice List Provided Yes Medicare choice list reviewed on patient,family electronic tablet with SNF/HH Preference [facility] HH preference Whiteboard Updated in Patient Room with Yes name and ext. # of Clothing Examiner Review Status In Process Please Provide Date Initial DC 07/11/24 Assessment Was Performed Next Review Type Continued Stay Review
--- NOTE | 2024-07-11 14:29 | OT.IP.EVAL ---
Current Diagnoses Type 2 diabetes mellitus without complications (07/11/24) Transient cerebral ischemic attack, unspecified (07/11/24) Essential (primary) hypertension (07/11/24) Past Medical History (Last Updated 07/11/24 @ 07:13 by Dorian Cooney MD) Coronary artery disease Diabetes HTN (hypertension) Occupational Therapy Inpatient Evaluation/Re-Eval M1 PT/OT-IP Prior Functional Status Start: 07/11/24 07:39 Freq: NEEDED Status: Active Protocol: Document 07/11/24 14:34 [facility] (Rec: 07/11/24 14:50 [facility] [id number]) Medical Review Prior Functional Status Medical History Reviewed Yes Diet/Fluid Consistency Regular Communication WNLs Mobility and Gait I, recent fall when passed out in BR and similar presentation prior to adm Activities of Daily Living and IADL's 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 Additional Social History Comment Currently out of work and in cardiac rehab after open heart surgery M2 OT-IP Current Condition Start: 07/11/24 14:34 Freq: Status: Active Protocol: Document 07/11/24 14:34 [facility] (Rec: 07/11/24 14:50 [facility] [id number]) Occupational Therapy Current Condition Current Condition Evaluation Date 07/11/24 Treatment Diagnosis SYncope Diagnosis Onset Date 07/11/24 M3 OT- IP Subjective and Pain Start: 07/11/24 14:34 Freq: Status: Active Protocol: Document 07/11/24 14:34 [facility] (Rec: 07/11/24 14:50 [facility] [id number]) OT- Subjective Occupational Therapy Visit Type Type Initial Evaluation Visit Start Time 13:51 Visit Stop Time 14:29 Occupational Therapy Visit Comments Patient Comments Pt agreed to get up and work with OT. Patient/Caregiver Goals TO go home. OT Pain Assessment Pain When Pain Assessed At Rest Pain Present Pain Present Denied Pain M4 OT- IP ADL's Start: 07/11/24 14:34 Freq: Status: Active Protocol: Document 07/11/24 14:34 [facility] (Rec: 07/11/24 14:50 [facility] [id number]) OT [id number] Comments OT Self-Feeding Comments Not at mealtime. OT ADL-Grooming Comments OT Grooming Comments Not performed. OT ADL-Oral Care Comments Oral Care Comments Not performed. OT ADL-Dressing Comments OT Dressing Comments Pt insistent that he can do all his needs on his own. OT ADL-Toileting General Evaluation Toileting Ability Standby Assistance Areas Needing Assistance Empty Catheter or Colostomy Comments OT Toileting Comments Pt able to sit on the edge of the bed to use the urinal at this time and set-up assist. OT ADL-Bathing Comments OT Bathing Comments Pt will benefit form use of shower chair at home as gets orthostatic and hypotension while standing especially. M5 OT- IP IADL's Start: 07/11/24 14:34 Freq: Status: Active Protocol: Document 07/11/24 14:34 [facility] (Rec: 07/11/24 14:50 [facility] [id number]) OT-Instrumental Activities of Daily Living Home Safety Awareness Home Safety Comments Pt insistent that he can care for himself and not open to getting a 4ww but agrees for his girlfriend to design printing machine set up operator a FWW and shower chair. Money Management Money Management Comments Pt will benefit form assist. Meal Preparation Meal Preparation Caregiver Provides Assist Geriatric Aide Geriatric Aide Caregiver Provides Assist Driving Driving Concerns Identified Regarding Safety Driving Comments Pt agrees that he is not safe to drive at this time. M6 OT- IP Functional Cognition Start: 07/11/24 14:34 Freq: Status: Active Protocol: Document 07/11/24 14:34 [facility] (Rec: 07/11/24 14:50 [facility] [id number]) Cognitive Factors Limiting Selfcare Function Cognitive Ability Level of Alertness Drowsy Patient Orientation Name,Age,Birthday,Month,Date, Year,Day of Week,Place, Situation Attention Span Ability Capable of Focused Attention, Capable of Sustained Attention Ability to Follow Commands Able to Follow One Step Commands Safety Awareness Underestimates Need for Assistance Cognitive Comments Cognitive Assessment Comments Pt a bit drowsy and tired. Pt scored 160 seconds on Daisy Making Part B which implies severe impairments for visual attention, speed of processing, mental flexibility , executive functioning, and task switching. Pt noted to take long to see items on the right side of the page. OT- Vision and Hearing OT- Vision Assessment Visual Acuity Glasses All The Time Visual Attentiveness WFL Occular Pursuits WFL Visual Convergence WFL Visual Jackson WFL Vision Assessment Comments Pt states to get his new glasses soon. Pt intact for visual field however on Daisy Making Part B taking longer to see items on the right side of the page- continue to assess. M7 OT- IP Mobility and Balance Start: 07/11/24 14:34 Freq: Status: Active Protocol: Document 07/11/24 14:34 [facility] (Rec: 07/11/24 14:50 [facility] [id number]) OT- Bed Mobility Assessment Supine to Sit Supine to Sit Assist Standby Assistance Sit to Supine Sit to Supine Assist Standby Assistance OT-Transfer Assessment Sit to and From Stand Sit to and from Stand Standby Assistance,Contact Guard Assistance Comments Mobility Comments BP supine 177/69, sitting 108/ 62, 116/58, and 108/56 and states feeling a little light headed. Able to stand with FWW and BP dropped to 68/40 and feeling more woozy and had pt get back to bed and notified nursing of drop in BP. OT- Balance Assessment Sitting Balance and Reactions Static Sitting Balance Ability Good Dynamic Sitting Balance Ability Fair Standing Balance and Reactions Static Standing Balance Ability Fair M8 OT- IP Objective Assessments Start: 07/11/24 14:34 Freq: Status: Active Protocol: Document 07/11/24 14:34 [facility] (Rec: 07/11/24 14:50 [facility] [id number]) OT Gross Range of Motion Upper Extremity Range of Motion Assessment Within Functional Limits OT Strength Upper Extremity Strength Assessment Within Functional Limits OT- Coordination Assessment Upper Extremity Finger to Nose Test Within Functional Limits M9 OT- IP Assessment and Plan Start: 07/11/24 14:34 Freq: Status: Active Protocol: Document 07/11/24 14:34 [facility] (Rec: 07/11/24 14:50 [facility] [id number]) OT Summary Assessment and Plan Potential Rehabilitation Potential Good Analytic Complexity at Evaluation Moderate Summary OT Impairments Balance,Functional Cognition, Functional Mobility,Dressing, Toileting,Bathing,Toilet Transfers Progress Towards Goals Slow Progress due to Medical Issues,Slow Progress due to Cognition Assessment Summary Pt MOD complexity with syncope and hypotension when sitting and especially when standing. BP dropped from 177/69 to 68/ 40 from supine to standing. Pt aware best to have a FWW at this time and open to his girlfriend obtaining a shower chair fro home use. Pt to go home with his girlfriend to assist when medically stable. Goals Grooming Goal Independent Dressing Goal Independent Toileting Goal Independent Bathing Goal Standby Assistance Toilet Transfer Goal Independent Shower Transfer Goal Standby Assistance Days to Meet Goals 7 Frequency of Treatment Other frequency 5x/week Treatment Plan OT Treatment Plan ADL Training,Functional Cognition Training,Functional Mobility,Patient/Family Education,Discharge Planning Other Treatment Recommendations and Next Standing ADL's Treatment Focus Discharge Recommendations OT Discharge Recommendations Home with Assistance Home Equipment Needs FWW, shower chair Transportation Needs at Discharge Private Vehicle
--- NOTE | 2024-07-11 15:15 | P.HP_ITS ---
History of Present Illness History of Present Illness Date Patient Seen: 07/11/24 Time Patient Seen: 13:00 Chief complaint: thinks he had a stroke Narrative: This is a 64 year old male with PMH of HTN, DM, CAD (cabg in 03/2024) who went to sleep on 07/10 around 8-9 pm after he watched TV with his girlfriend, woke up early this AM to ago to go to bathroom and was dizzy, with impaired balance and acted confused. He had difficulty speaking as well. ED workup with non-revealing CTH and CTA of head and neck. Stable vital signs. Placed in observation with TIA/CVA. Interval history: Patient's MRI and Echo are unremarkable. He reports ongoing symptoms like this, to a much lesser extent, more prominent in the morning ever since his heart procedure in March. Orthostatics were markedly positive. Home amlodipine held for now. [facility] Medical History (Updated 07/11/24 @ 07:13 by Dorian Cooney MD) HTN (hypertension) Diabetes Coronary artery disease Social History household members: significant other Smoking Status: Never smoker Meds Home Medications and Allergies Home Medications Medication Instructions Recorded Confirmed Type aspirin 81 mg tablet,delayed 81 mg PO DAILY 04/06/24 07/11/24 History release gabapentin 300 mg capsule 600 mg PO BEDTIME PRN Pain, 04/06/24 07/11/24 History Moderate glipizide 5 mg-metformin 500 mg 2 tab PO BIDAC 04/06/24 07/11/24 History tablet hydrocodone 5 mg-acetaminophen 325 1 tab PO Q6H PRN pain 04/06/24 07/11/24 History mg tablet insulin NPH isoph U-100 human 100 5 unit SUBCUT BID 04/06/24 07/11/24 History unit/mL (3 mL) subcutaneous pen (Humulin N NPH U-100 Insulin Allyssa) trazodone 100 mg tablet 100 mg PO ONCE PM PRN insomnia 04/06/24 07/11/24 History amiodarone 200 mg tablet 200 mg PO DAILY 07/11/24 07/11/24 History amlodipine 2.5 mg tablet 2.5 mg PO DAILY 07/11/24 07/11/24 History atorvastatin 20 mg tablet 20 mg PO BEDTIME 07/11/24 07/11/24 History clopidogrel 75 mg tablet 75 mg PO DAILY 07/11/24 07/11/24 History Allergies Allergy/AdvReac Type Severity Reaction Status Date / Time No Known Drug Allergies Allergy Verified 04/06/24 15:50 Review of Systems Review of Systems Narrative: All other systems reviewed with the patient and are negative unless otherwise stated. Exam Vital Signs (past 8 hours): - 07/11/24 10:22 07/11/24 12:21 Temperature 97.3 F L 97.7 F Pulse Rate 64 69 Respiratory Rate 17 16 Blood Pressure 124/65 159/73 H Pulse Oximetry 96 100 Oxygen Delivery Method Room Air Narrative Exam Narrative: General:? Patient is well developed and well nourished, in no distress at this time. HEENT:? Normocephalic, atraumatic, extraocular muscles intact, oral pharynx is clear and mucous membranes are moist. Neck: supple and symmetric, trachea is midline, no cervical adenopathy. Chest:? Normal AP diameter and contour without kyphoscoliosis, no tachypnea, equal chest rise bilaterally. Lungs:? CTA b/l no wheezing rhonchi or rales. Cardio:?RRR no m/r/g. Abdomen: S NT ND. No CVA tenderness. Musculoskeletal:? Muscle strength and tone are equal within normal limits, no deformity. Extremities: No edema or joint effusions. No cyanosis or clubbing. Skin:? Pale,? Warm to touch,dry and intact without rashes, ulcerations or petechiae.? Neuro:? Alert and orientated x3,? sensation to touch intact in all extremities, no gross deficits noted of cranial nerves. Psych:? Patient has a well-kept appearance, appropriate affect, mental status attitude thought context and judgment are appropriate for age. Objective ECG Impression: NSR, non-specific T wave abnormality unchanged compared to prior tracings as interpreted by me. Labs 07/11/24 05:04 07/11/24 05:04 Labs: Laboratory Results - last 24 hr 07/10/24 07/11/24 00:13 05:04 WBC 6.1 7.4 RBC 3.99 L 3.97 L Hgb 10.9 L 11.0 L Hct 33.1 L 32.8 L MCV 82.9 82.6 MCH 27.3 27.7 MCHC 32.9 33.5 RDW 17.1 H 17.8 H Plt Count 391 361 Neut % (Auto) 47.7 L 71.2 D Lymph % (Auto) 40.1 H 20.4 L Isabela % (Auto) 8.1 5.5 Eos % (Auto) 3.3 2.1 Baso % (Auto) 0.8 0.8 Neut # (Auto) 2900 5300 Lymph # (Auto) 2400 1500 Isabela # (Auto) 500 400 Eos # (Auto) 200 200 Baso # (Auto) 0 100 PT 11.8 INR 1.0 APTT 32 Sodium 138 137 Potassium 4.0 4.3 Chloride 101 100 Carbon Dioxide 27 29 BUN 18 17 Creatinine 0.69 0.68 Estimated GFR > 60 > 60 BUN/Creatinine Ratio 26.1 H 25.0 H Glucose 181 H 184 H Calcium 9.5 9.5 Total Bilirubin 0.4 0.5 AST 21 19 ALT 19 18 Alkaline Phosphatase 119 98 Total Creatine Kinase 32 L Troponin I < 0.012 Total Protein 7.3 7.0 Albumin 4.1 4.0 Globulin 3.2 3.0 Albumin/Globulin Ratio 1.3 1.3 Triglycerides 68 Cholesterol 124 L LDL Cholesterol, Calc 78 HDL Cholesterol 32 L Lipase 269 Ethyl Alcohol < 10 Assessment & Plan Assessment & Plan narrative: 1. Orthostatic hypotension - symptoms are most likely related to orthostatic hypotension, rather than TIA or CVA. MRI negative for acute ischemia / stroke, Echocardiogram is unremarkable. - continue to hold home amlodipine, - can stop IV fluids - consider midodrine if holding home medications is ineffective. - improve glycemic control as elevated glucose can lead to dehydration. 2. DM 2 with hyperglycemia - continue home medication of NPH BID. May need to switch therapies depending on glucose and how much sliding scale is needed. Hold home glipizide-metformin combo. 3. CAD - recent CABG 03/2024. Continue asa plavix and atorvastatin at home dosing. - unclear if still need for amiodarone. Will continue to look for outside records. 4. HTN - as above, hold amlodipine Code: Full, surrogate is patient's spouse DVT: Lovenox daily I have utilized all available immediate resources to obtain, update, or review the patient's current medications. Dispo: patient admitted under observation status, possible inpatient if no improvement in orthostatics. Unclear if will ipmrove enough to go home or may need SNF. Additional history obtained via discussions with the overnight provider and bedside RN and physical therapy team. These discussions contributed to the creation of the above assessment and plan. I have reviewed patient's presenting documentation, labs, and imaging personally. Time-Based Coding :: [TOTAL MINUTES] spent with patient and on the chart (including review of chart, obtaining history, exam, reviewing outside data, placing orders, documenting exam and treatment plan, and counseling patient) on [DATE].
--- NOTE | 2024-07-11 15:18 | ST.IPIE ---
Visit Care Team Role Provider Type Hayes Diaz DO Emergency Provider Physician Specialty: Emergency Medicine Address: [address] [place] [address], [id number] Email: [email or web address] Dorian Cooney MD Admit Provider Physician Attending Provider Specialty: Internal Medicine Address: [address] [place] [address], [id number] Email: [email or web address] Current Diagnoses Type 2 diabetes mellitus without complications (07/11/24) Transient cerebral ischemic attack, unspecified (07/11/24) Essential (primary) hypertension (07/11/24) Past Medical History (Last Updated 07/11/24 @ 07:13 by Dorian Cooney MD) Coronary artery disease (Medical) Diabetes (Medical) HTN (hypertension) (Medical) ST IP Initial Evaluation Report [facility] Adult Cognitive Linguistic Eval Start: 07/11/24 12:52 Freq: Status: Active Protocol: Document 07/11/24 12:52 [facility] (Rec: 07/11/24 13:45 [facility] [id number]) Adult Cognitive Linguistic Evaluation Session Time Visit Start Time 09:10 Visit Stop Time 09:30 Total Visit Minutes 20 Visit Information Visit Number 1 Referral Referring Provider Juan Carlos Patino Reason for Referral word finding difficulties Setting Assessment Location Acute Care Visit Type Note Type Initial evaluation Next Note Type Next Note Type Treatment Note Patient Information Identification Type Name Patient History 64 y/o with PMH of HTN, CAD, DM, went to sleep on 07/10 around 8-9 pm after he watched TV with his girlfriend, woke up few hours ago to go to bathroom and was dizzy, with impaired balance and acted confused. He had difficulty speaking as well. ED workup with non-revealing CTH and CTA of head and neck. Stable vital signs. Placed in observation with TIA/CVA. Pt referred to ST due to ongoing c/o difficulties with word finding and speech clarity. Subjective Patient Report Pt was partially reclined in bed with his empty breakfast tray present at bedside upon ST entry to room. Pt was awake, alert, agreeable, and oriented. He recalled that when his symptoms first started, he had difficulty producing any words. His girlfriend stated that he speech sounded like jibberish . This has mostly resolved, but pt states he speech is not back to baseline and he feels as though he sounds like he is drunk. Pt does present with slurred and slowed speech . Pt agreeable to [facility] evaluation. Assessment Oral Motor Examination Completed Yes: Brief OME Results Brief OME as part of the QAB was completed. Pt presented with mildly-moderately weakened lingual movements laterally. Additionally, DDK task and repetitive syllable task (/p^p^p^/) were mildly slowed, imprecise, and uneven in timing. Speech overall presents as slowed and slurred . Pt reported no difficulty with eating his breakfast meal, which he had completed before ST entry to room. No report of difficulty chewing or swallowing liquids or solids. Pt did not report feelings of coughing/choking/foods getting stuck. Informal Assessment Receptive Language Normal Yes Receptive Language Impairment(s) Reading Expressive Language Normal Yes Pragmatic Language Normal Yes Speech Normal No Speech Impairment(s) Imprecise articulation,Slow speech rate Cognition Normal Yes Formal Assessment Standardized Test/Screener Type Quick Aphasia Battery (QAB) Administration Complete Results Quick Aphasia Battery results were as follows: Word comprehension- 10.00 Sentence comprehension - 8.33 Word finding - 8.00 Grammatical construction - 8. 63 Speech motor programming - 10. 00 Repetition - 9.17 Reading5.42 QAB overall8.48 According to the creators of the QAB, scores can be interpreted as follows: QAB overall scoreSeverity 0.00?4.99severe 5.00?7.49moderate 7.50?8.89mild 8.90?10.00no aphasia Based on the pt's scores, he presents with mild aphasia. However, his overall score was decreased significantly by his scores on the reading subsection of the QAB. Pt and pt's girlfriend pt that his reading skills are at baseline and he has always had difficulty reading. Pt's girlfriend suspects undiagnosed dyslexia. Additionally, though pt's cognitive linguistic skills present as relatively normal, speech does continue to present as mildly slurred, with imprecise and uneven rate of speech on DDK task. Findings/Results Language Function Mildly impaired Cognitive Function Within functional limits Findings Pt presents with very mild linguistic impairments and cognition appears WFL. Pt had difficulty with reading portion of QAB, but states this is baseline for him as he has always struggled with reading (endorsed by pt's girlfriend). His speech does continue to present as mildly slurred, but intelligible. Recommend [facility] continue to monitor and provide further education re word finding strategies for aphasia and/or oral motor exercises for dysarthria as needed. Cognitive Communication Deficits Self-awareness of Cognitive- Situational awareness ( Communication Deficits recognition of problem in context;in real time) Prognosis Prognosis Good Based on Cognitive status,Family support Plan of Care Speech-Language Treatment Yes Patient/Caregiver Education Described results of evaluation,Patient expressed understanding of evaluation, Family/caregivers expressed understanding of evaluation, Family/caregivers expressed agreement with goals and treatment plan Short Term Goals Pt and family/caregivers will benefit from education in compensatory strategies for wordfinding in order to reduce frustration with expressive aphasia symptoms. Pt and family/caregivers will benefit from education in oral motor/speech exercises for dysarthria in order to decrease increase speed and accuracy of articulation and decrease s/sx dysarthria/ slurred speech. Discharge Recommendations Home
[2024-07-11] MEDS: HYDROCODONE/ACET 5/325 TABLET 1 TAB PO (21:18)
[2024-07-12] VITALS (9 sets, daily range): BP systolic 76–154; BP diastolic 44–73; PULSE 67–82; RESP 17–19; TEMP 36.4–36.6; O2SAT 97–99
[2024-07-12] MEDS: ACETAMINOPHEN 325 MG TABLET 650 MG PO (08:50)
[2024-07-12] MEDS: ASPIRIN EC 81 MG TABLET PO (08:51)
[2024-07-12] MEDS: ENOXAPARIN 40 MG/0.4 ML SYRINGE SUBCUT (08:52)
[2024-07-12] MEDS: INSULIN NPH 100 UNIT/ML 10ML VIAL SUBCUT ×2 (08:52→20:41)
--- NOTE | 2024-07-12 11:27 | ST.IPTN ---
Visit Care Team Role Provider Type Hayes Diaz DO Emergency Provider Physician Address: [address] [place] [address], [id number] Dorian Cooney MD Admit Provider Physician Attending Provider Address: [address] [place] [address], [id number] SKIN CARE SPECIALIST Treatment Note SKIN CARE SPECIALIST Treatment Note Start: 07/12/24 11:10 Freq: Status: Active Protocol: Document 07/12/24 11:11 SS (Rec: 07/12/24 11:26 SS [id number]) Speech Pathology Treatment Note Session Time Visit Start Time 10:05 Visit Stop Time 10:30 Total Visit Minutes 25 Visit Information Visit Number 2 Insurance Information [facility] Treatment Setting Acute Care Visit Type Note Type Treatment Note Next Note Type Next Note Type Treatment Note General Information Patient History 64 y/o with PMH of HTN, CAD, DM, went to sleep on 07/10 around 8-9 pm after he watched TV with his girlfriend, woke up few hours ago to go to bathroom and was dizzy, with impaired balance and acted confused. He had difficulty speaking as well. ED workup with non-revealing CTH and CTA of head and neck. Stable vital signs. Placed in observation with TIA/CVA. Pt referred to ST due to ongoing c/o difficulties with word finding and speech clarity. Subjective Identification Type Name,ID Wristband Observations/Patient Presentation Pt is agreeable to treatment session and engaged throughout the session. He expressed he has noted a decrease in his speech symptoms, including decreased impercision and less frequent word-finding instances. Very mild articulatory imprecision and decreased rate of speech noted . Occasional hesitations noted with somewhat effective attempts at circumlocution. Objective Short Term Goals Pt and family/caregivers will benefit from education in compensatory strategies for wordfinding in order to reduce frustration with expressive aphasia symptoms. Pt and family/caregivers will benefit from education in oral motor/speech exercises for dysarthria in order to decrease increase speed and accuracy of articulation and decrease s/sx dysarthria/ slurred speech. Treatment Activities Treatment focused on education and implementation of compensatory strategies for dysarthria and word-finding. Assessment Patient Response to Treatment Excellent Rehab Potential Excellent Impairments Identified Expressive language,Speech Progress Towards Goals Excellent Progress Assessment of Overall Progress Improving Assessment of Improvement SKIN CARE SPECIALIST provided education re: compensatory strategies targeting mildly decreased articulatory imprecision, including use of slower rate, over-articulation, saying one word at a time, and rephrasing as needed. Demonstrated use of strategies and provided educational handout for increased recall of strategies . Pt implemented strategies in semi-structured conversation about topics of interest. He utilized strategies effectively in about 80% of opportunities, benefitting from min cueing to utilize strategies in all opportunities. Reduced imprecision noted with use of strategies with pt endorsing use of strategies, stating ?I think these will help when I need them?. Additionally, SKIN CARE SPECIALIST provided education re: compensatory strategies for mild difficulty with word-finding, including pausing and taking a deep breath, trying to think of the first letter/sound, using a similar word/phrase, stating the topic, and describing it. Provided handout to enhance understanding of strategies. Implemented structured task in which pt was given target word and asked to use strategies. He utilized strategies initially with min verbal cueing, and then independently towards ends of task. Also implemented strategies during unstructured conversation. Pt demonstrated effective use of strategies during x2 instances of anomia without need for cueing. Plan to reinforce use of strategies for increased generalization and carryover in next session. Reviewed with Patient Goals,Progress Being Made Patient/Caregiver Understanding Excellent Plan Frequency of Treatment Five Times a Week Length of Session 30 Minutes Therapy Recommendations Continue with Current Program
--- NOTE | 2024-07-12 11:57 | PT.IPTN ---
Current Diagnoses Type 2 diabetes mellitus without complications (07/11/24) Transient cerebral ischemic attack, unspecified (07/11/24) Essential (primary) hypertension (07/11/24) Physical Therapy Treatment Note M2 PT-IP Current Condition Start: 07/11/24 07:39 Freq: NEEDED Status: Active Protocol: Document 07/11/24 10:03 MB (Rec: 07/11/24 10:35 MB [id number]) Physical Therapy Current Condition Current Condition Evaluation Date 07/11/24 Treatment Diagnosis Light-headed, syncope M3 PT-IP Subjective Start: 07/11/24 07:39 Freq: NEEDED Status: Active Protocol: Document 07/12/24 12:32 TS (Rec: 07/12/24 12:46 TS [id number]) Subjective Physical Therapy Visit Type Type Treatment Note Visit Start Time 11:57 Visit Stop Time 12:20 Number of SUPERINTENDENT SYSTEM OPERATION Visits 1 Physical Therapy Visit Comments Patient Comments Pt found resting in bed, reports he has not been up today, he is agreeable to PT. M4 PT-IP Mobility and Gait Start: 07/11/24 07:39 Freq: NEEDED Status: Active Protocol: Document 07/12/24 12:32 TS (Rec: 07/12/24 12:46 TS [id number]) PT-Bed Mobility Assessment Supine to Sit Supine to Sit Standby Assistance Sit to Supine Sit to Supine Standby Assistance Scooting Scooting to Edge of Bed Standby Assistance Scooting Up and Down in Bed Standby Assistance PT-Transfer Assessment Sit to and From Stand Sit to and from Stand Contact Guard Assistance Comments Mobility Comments Bp in supine 148/68. Supine to sit SBA with HOB elevated and use of bedrail. BP in sitting 127/61, pt reports some dizziness. STS with FWW CGA, Bp in standing 76/44, pt continues to report dizziness. He ambulated in the room ~50' CGA/SBA with FWW, pt is unsteady and report feeling wobbly. Pt was left back in bed, BP in supine 118/57. Gait Assessment Gait Gait Assistance Required: Standby Assistance,Contact Guard Assist Distance (Feet) 50 Assistive Devices Assistive Device Front Wheeled Walker Orthotic/Prosthetic Devices or Brace: No Gait Deviations General Gait Pattern Antalgic,Decreased Stride Length,Decreased Feet Clearance Factors Limiting Gait Function Factors Limiting Gait Function Decreased Activity Tolerance, Decreased Strength,Poor Balance,Poor Safety Awareness PT-Balance Assessment Sitting Balance and Reactions Static Sitting Balance Ability Good Dynamic Sitting Balance Ability Fair Standing Balance and Reactions Static Standing Balance Ability Fair Dynamic Standing Balance Ability Fair Device Used FWW M5 PT-IP Objective Assessments Start: 07/11/24 07:39 Freq: NEEDED Status: Active Protocol: Document 07/11/24 10:03 MB (Rec: 07/11/24 10:35 MB [id number]) Orientation Orientation/Cognition Level of Alertness Alert Orientation Name,Age,Birthday,Month,Date, Year,Place,Situation Language Function Ability No Deficits Noted Safety Awareness Decreased Safety Awareness Comments Pt and girlfriend provide slightly different history of events and they do agree that light-headedness and passing out have been recent issues at home and started prior to open heart surgery in March Gross Range of Motion Upper Extremity ROM Impairments Defer to OT Lower Extremity ROM Assessment Within Functional Limits Strength Lower Extremity Strength Assessment Within Functional Limits Hip 5/5 B hip flexion Knee 5/5 B knee extension Ankle 5/5 B ankle DF and great toe extension Coordination Assessment Gross Coordination Gross Coordination Impaired Assessment Finger to Nose Test Moderate Impairment Heel on Adams Test Moderate Impairment Coordination Comments LUE worse than right UE with finger to nose and all coordination testing is very slow Sensation Assessment Comments Sensation Comments MRI transport arrived and PT does not have time to assess Muscle Tone Muscle Tone WNL Yes M6 PT-IP Treatment Start: 07/11/24 07:39 Freq: NEEDED Status: Active Protocol: Document 07/12/24 12:32 TS (Rec: 07/12/24 12:46 [id number]) Physical Therapy Treatment Education Education Provided Safety M7 PT-IP Assessment and Plan Start: 07/11/24 07:39 Freq: NEEDED Status: Active Protocol: Document 07/12/24 12:32 TS (Rec: 07/12/24 12:46 TS [id number]) PT Summary Assessment and Plan Potential Rehabilitation Potential Fair Summary Impairments Balance,Coordination,Sensation ,Cognition,Bed Mobility, Transfers,Gait,Activity Tolerance Progress Towards Goals Slow Progress due to Activity Tolerance,Slow Progress - Other Assessment Summary Yonny made some progress with his mobility this session but he remains limited by hypotension. He is SBA for all bed mobility. He requires CGA at times for gait due to unsteadiness. BP continues to drop in standing and pt reports symptoms of lightheadedness and blurry vision. PT continues to recommend home with assist. Goals Bed Mobility Goal Independent Transfer Goal Independent,Cane,Front Wheeled Walker Gait Goal Independent,Cane,Front Wheel Walker Gait Distance 100 Other Goals Pt will ascend and descend one platform step with LRAD and no more than CGA to allow safe home entry. Days to Meet Goals 5 Frequency of Treatment Frequency Of Treatment Once a Day Treatment Plan Physical Therapy Treatment Plan Bed Mobility Training,Transfer Training,Gait Training, Therapeutic Exercise,Balance Retraining,Discharge Planning, Hot or Cold Pack,Neuromuscular Re-ed,Coordination Retraining ,Manual Therapy Precautions Other Precautions Severe orthostasis Weight Bearing Status Weight Bearing Status Weight Bear as Tolerated Recommendations To Nursing Amount of Assist Needed 1 Person Assist Discharge Recommendations PT Discharge Recommendations Home with Assistance Transportation Needs at Discharge Private Vehicle
[2024-07-12] MEDS: INSULIN LISPRO 100 UNIT/ML 3ML VIAL SUBCUT ×2 (12:56→17:27)
[2024-07-12] MEDS: CLOPIDOGREL 75 MG TABLET PO (12:59)
--- NOTE | 2024-07-12 16:22 | PM.PN.1 ---
Subjective Subjective Interval history: 64 M admitted with continued orthostatic hypotension. Remains dizzy today despite holding amlodipine. Will start midodrine. Also complained of R foot numbness, though this is only located on the top of his foot and medial ankle. Exam Vital Signs (past 8 hours): - 07/12/24 12:00 07/12/24 13:39 Temperature 97.8 F Pulse Rate 67 Pulse Rate [Orthostatic Lying] 68 Pulse Rate [Orthostatic Sitting] 71 Pulse Rate [Orthostatic Standing] 82 Respiratory Rate 18 Blood Pressure 135/56 L Blood Pressure [Orthostatic Lying] 148/65 H Blood Pressure [Orthostatic Sitting] 127/61 Blood Pressure [Orthostatic Standing] 76/44 L Pulse Oximetry 98 Oxygen Delivery Method Room Air Narrative Exam Narrative: General:? Patient is well developed and well nourished, in no distress at this time. Lungs:? CTA b/l no wheezing rhonchi or rales. Cardio:?RRR no m/r/g. Abdomen: S NT ND. Musculoskeletal:? Muscle strength and tone are equal within normal limits, no deformity. Extremities: No edema or joint effusions. No cyanosis or clubbing. Skin:? Pale,? Warm to touch,dry and intact without rashes, ulcerations or petechiae.? Neuro:? Alert and orientated x3,? sensation reports diminished on the dorsum of the foot and medial ankle, intact distally and proximally. Strength is +5/5 and equal both sides. Psych:? Patient has a well-kept appearance, appropriate affect, mental status attitude thought context and judgment are appropriate for age. Objective Labs 07/11/24 05:04 07/11/24 05:04 [facility] Medical History (Updated 07/11/24 @ 07:13 by Dorian Cooney MD) HTN (hypertension) Diabetes Coronary artery disease Social History household members: significant other Smoking Status: Never smoker Assessment & Plan Assessment & Plan narrative: 1. Orthostatic hypotension - symptoms are most likely related to orthostatic hypotension, rather than TIA or CVA. MRI negative for acute ischemia / stroke, Echocardiogram is unremarkable. - continue to hold home amlodipine, - can stop IV fluids - will start midodrine 2.5mg today TID to see if improvement in dizziness. Can increase up to 10 mg TID - improve glycemic control as elevated glucose can lead to dehydration. 2. DM 2 with hyperglycemia - continue home medication of NPH BID. May need to switch therapies depending on glucose and how much sliding scale is needed. Hold home glipizide-metformin combo. Glucose is not horrible today with max of 184. 3. CAD - recent CABG 03/2024. Continue asa plavix and atorvastatin at home dosing. - unclear if still need for amiodarone. Will continue to look for outside records. 4. HTN - as above, hold amlodipine 5. R foot numbness likely sciatic nerve or diabetic neuropathy (less likely) - benign exam, good strength, MRI negative yesterday for CVA. Patient reports waxing and waning symptoms, does seem to occur with R sided sciatic pain. He also has diabetic neuropathy. - continue PT/OT for sciatica as outpatient. No need for further evaluation at this time. symptoms not consistent with CVA. No back pain or urinary / fecal incontinence. Code: Full, surrogate is patient's spouse DVT: Lovenox daily I have utilized all available immediate resources to obtain, update, or review the patient's current medications. Dispo: Inpatient, likely discharge home once orthostasis and dizziness with standing are improved. 1-2 days. Additional history obtained via discussions with the overnight provider and bedside RN and physical therapy team. These discussions contributed to the creation of the above assessment and plan. I have reviewed patient's presenting documentation, labs, and imaging personally. Time-Based Coding :: [TOTAL MINUTES] spent with patient and on the chart (including review of chart, obtaining history, exam, reviewing outside data, placing orders, documenting exam and treatment plan, and counseling patient) on [DATE].
[2024-07-12] MEDS: MIDODRINE HCL 5 MG TABLET 2.5 MG PO (17:27)
--- NOTE | 2024-07-12 20:26 | PC.NURSE ---
PT stated at 1928 that he had not eaten his dinner, When EARTH SCIENCE TECHNICAL OFFICER(s) and nurse went to look for his tray it was not there. Nurse/EARTH SCIENCE TECHNICAL OFFICER(s) offered PT food from the nutrition room, PT refused food x2. PT was given food and a drink from the vending machines. Family/Nurse/Charge nurse/EARTH SCIENCE TECHNICAL OFFICER notified ATT. PT Blood sugar before given food is 135.
[2024-07-12] MEDS: ATORVASTATIN 20 MG TABLET PO (20:42)
[2024-07-13] VITALS (7 sets, daily range): BP systolic 72–145; BP diastolic 41–74; PULSE 54–85; RESP 17–18; TEMP 36.3–37; O2SAT 98
[2024-07-13] MEDS: MIDODRINE HCL 5 MG TABLET 2.5 MG PO ×3 (05:38→19:31)
[2024-07-13] MEDS: ACETAMINOPHEN 325 MG TABLET 650 MG PO ×3 (05:38→19:33)
--- NOTE | 2024-07-13 07:03 | PC.NURSE ---
Pt resting in bed most of the shift. Up to the bathroom w/sba. Pt has been a&o, calm and cooperative.
--- NOTE | 2024-07-13 07:49 | P.PN_ITS ---
Subjective Subjective Interval history: He says that he is feeling fine lying in bed and is waiting for assistance to try walking today. His echocardiogram is normal but he apparently has a history of doing cardiac rehab. 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 These episodes of orthostatic hypotension/dizziness have been going there for months. He does have diabetes. His hemoglobin is 11.0 with a glucose of 184. Exam Vital Signs (past 8 hours): - 07/13/24 03:00 Temperature 98.6 F Pulse Rate 72 Respiratory Rate 18 Blood Pressure 112/67 Pulse Oximetry 98 Oxygen Flow Rate 0 Oxygen Delivery Method Room Air Oxygen Flow Rate 0 Narrative Exam Narrative: He is alert and oriented x3. He has very poor dentition. Heart is regular rate and rhythm without murmur Lungs are clear to auscultation bilaterally. Extremities have no ankle edema. Abdomen is obese and nontender Objective Labs 07/11/24 05:04 07/11/24 05:04 [facility] Medical History (Updated 07/11/24 @ 07:13 by Dorian Cooney MD) HTN (hypertension) Diabetes Coronary artery disease Social History household members: significant other Smoking Status: Never smoker Assessment & Plan Assessment & Plan narrative: 1. Orthostatic hypotension - symptoms are most likely related to orthostatic hypotension of Diabetic Autonomic Neuropathy? MRI negative for acute ischemia / stroke, Echocardiogram is unremarkable. - continue to hold home amlodipine, - continue starting the some Midodrine - improve glycemic control as elevated glucose can lead to dehydration. 2. DM 2 with hyperglycemia - Possible Autonomic neuropathy - continue home medication of NPH BID. May need to switch therapies depending on glucose and how much sliding scale is needed. Hold home glipizide-metformin combo. 3. CAD - recent CABG 03/2024. Continue asa plavix and atorvastatin at home dosing. - unclear if still need for amiodarone. Will continue to look for outside records. 4. HTN - as above, hold amlodipine 5. R foot numbness likely sciatic nerve or diabetic neuropathy (less likely) - benign exam, good strength, MRI negative for CVA. Patient reports waxing and waning symptoms, does seem to occur with R sided sciatic pain. He also has diabetic neuropathy. - continue PT/OT for sciatica as outpatient. No need for further evaluation at this time. symptoms not consistent with CVA. No back pain or urinary / fecal incontinence. Code: Full, surrogate is patient's spouse DVT: Lovenox daily Time-Based Coding :: [TOTAL MINUTES] spent with patient and on the chart (including review of chart, obtaining history, exam, reviewing outside data, placing orders, documenting exam and treatment plan, and counseling patient) on [DATE].
[2024-07-13] MEDS: SODIUM CHLORIDE 0.9% FLUSH 10 ML IV ×2 (09:00→20:31)
[2024-07-13] MEDS: INSULIN LISPRO 100 UNIT/ML 3ML VIAL SUBCUT ×3 (09:03→17:15)
[2024-07-13] MEDS: ASPIRIN EC 81 MG TABLET PO (09:04)
[2024-07-13] MEDS: ENOXAPARIN 40 MG/0.4 ML SYRINGE SUBCUT (09:04)
[2024-07-13] MEDS: CLOPIDOGREL 75 MG TABLET PO (09:04)
[2024-07-13 10:56] LABS: BUN Creatinine Ratio 27.9 (6-22); Blood Urea Nitrogen 19 mg/dL (9-20); Calcium 9.5 mg/dL (8.4-10.2); Carbon Dioxide 28 mmol/L (22-32); Chloride 98 mmol/L (98-107); Estimated Glomerular Filt Rate > 60 mL/min (>60); Glucose 257 mg/dL (80-110); HEMOLYSIS < 15 (0-50); Sodium 134 mmol/L (137-145)
[2024-07-13] MEDS: INSULIN NPH 100 UNIT/ML 10ML VIAL SUBCUT ×2 (13:20→20:31)
--- NOTE | 2024-07-13 13:30 | PT.IPTN ---
Current Diagnoses Type 2 diabetes mellitus without complications (07/11/24) Transient cerebral ischemic attack, unspecified (07/11/24) Essential (primary) hypertension (07/11/24) Physical Therapy Treatment Note M2 PT-IP Current Condition Start: 07/11/24 07:39 Freq: NEEDED Status: Active Protocol: Document 07/11/24 10:03 MB (Rec: 07/11/24 10:35 MB [id number]) Physical Therapy Current Condition Current Condition Evaluation Date 07/11/24 Treatment Diagnosis Light-headed, syncope M3 PT-IP Subjective Start: 07/11/24 07:39 Freq: NEEDED Status: Active Protocol: Document 07/13/24 13:56 TS (Rec: 07/13/24 14:04 TS [id number]) Subjective Physical Therapy Visit Type Type Treatment Note Visit Start Time 13:30 Visit Stop Time 13:50 Number of HEALTHCARE CORPORATE ACCOUNT DIRECTOR Visits 2 Physical Therapy Visit Comments Patient Comments Pt found resting in bed, reports dizziness in standing, he is agreeable to PT. M4 PT-IP Mobility and Gait Start: 07/11/24 07:39 Freq: NEEDED Status: Active Protocol: Document 07/13/24 13:56 TS (Rec: 07/13/24 14:04 TS [id number]) PT-Bed Mobility Assessment Supine to Sit Supine to Sit Standby Assistance Sit to Supine Sit to Supine Standby Assistance Scooting Scooting to Edge of Bed Standby Assistance Scooting Up and Down in Bed Standby Assistance PT-Transfer Assessment Sit to and From Stand Sit to and from Stand Standby Assistance Equipment Transfer Assistive Device Front Wheeled Walker Orthotic/Prosthetic Devices or Brace: No Comments Mobility Comments Bp in supine 136/73. Pt performs bed mobility SBA with BUE support. BP in sitting 119/63, pt reports dizziness. STS with FWW SBA, pt has increased dizziness in standing. BP in standing 75/45 . Pt agreed to ambulate. He ambulated in hallway ~100'SBA/ CGA, pt has increased dizziness with turns. Pt was left back in bed, BP in supine 117/61. Gait Assessment Gait Gait Assistance Required: Standby Assistance,Contact Guard Assist Distance (Feet) 100 Assistive Devices Assistive Device Front Wheeled Walker Orthotic/Prosthetic Devices or Brace: No Gait Deviations General Gait Pattern Antalgic,Decreased Stride Length,Decreased Feet Clearance Factors Limiting Gait Function Factors Limiting Gait Function Decreased Activity Tolerance, Decreased Strength,Poor Balance,Poor Safety Awareness PT-Balance Assessment Sitting Balance and Reactions Static Sitting Balance Ability Good Dynamic Sitting Balance Ability Fair Standing Balance and Reactions Static Standing Balance Ability Good Dynamic Standing Balance Ability Fair Device Used FWW M5 PT-IP Objective Assessments Start: 07/11/24 07:39 Freq: NEEDED Status: Active Protocol: Document 07/11/24 10:03 MB (Rec: 07/11/24 10:35 MB [id number]) Orientation Orientation/Cognition Level of Alertness Alert Orientation Name,Age,Birthday,Month,Date, Year,Place,Situation Language Function Ability No Deficits Noted Safety Awareness Decreased Safety Awareness Comments Pt and girlfriend provide slightly different history of events and they do agree that light-headedness and passing out have been recent issues at home and started prior to open heart surgery in March Gross Range of Motion Upper Extremity ROM Impairments Defer to OT Lower Extremity ROM Assessment Within Functional Limits Strength Lower Extremity Strength Assessment Within Functional Limits Hip 5/5 B hip flexion Knee 5/5 B knee extension Ankle 5/5 B ankle DF and great toe extension Coordination Assessment Gross Coordination Gross Coordination Impaired Assessment Finger to Nose Test Moderate Impairment Heel on Adams Test Moderate Impairment Coordination Comments LUE worse than right UE with finger to nose and all coordination testing is very slow Sensation Assessment Comments Sensation Comments MRI transport arrived and PT does not have time to assess Muscle Tone Muscle Tone WNL Yes M6 PT-IP Treatment Start: 07/11/24 07:39 Freq: NEEDED Status: Active Protocol: Document 07/13/24 13:56 TS (Rec: 07/13/24 14:04 [id number]) Physical Therapy Treatment Education Education Provided Safety M7 PT-IP Assessment and Plan Start: 07/11/24 07:39 Freq: NEEDED Status: Active Protocol: Document 07/13/24 13:56 TS (Rec: 07/13/24 14:04 [id number]) PT Summary Assessment and Plan Potential Rehabilitation Potential Fair Summary Impairments Balance,Coordination,Sensation ,Cognition,Bed Mobility, Transfers,Gait,Activity Tolerance Progress Towards Goals Slow Progress due to Medical Issues,Slow Progress due to Activity Tolerance Assessment Summary Yonny is making progress with his mobility but continues to be limited by ongoing medical issues and activity tolerance . He continues to be SBA for most mobility. He progressed his gait to ~100'SBA/CGA with FWW, has increased dizziness with turns. Pt continues to be orthostatic(see vitals above) . PT continues to recommend home with assist. Goals Bed Mobility Goal Independent Transfer Goal Independent,Cane,Front Wheeled Walker Gait Goal Independent,Cane,Front Wheel Walker Gait Distance 100 Other Goals Pt will ascend and descend one platform step with LRAD and no more than CGA to allow safe home entry. Days to Meet Goals 5 Frequency of Treatment Frequency Of Treatment Once a Day Treatment Plan Physical Therapy Treatment Plan Bed Mobility Training,Transfer Training,Gait Training, Therapeutic Exercise,Balance Retraining,Discharge Planning, Hot or Cold Pack,Neuromuscular Re-ed,Coordination Retraining ,Manual Therapy Precautions Other Precautions Severe orthostasis Weight Bearing Status Weight Bearing Status Weight Bear as Tolerated Recommendations To Nursing Amount of Assist Needed 1 Person Assist Discharge Recommendations PT Discharge Recommendations Home with Assistance Transportation Needs at Discharge Private Vehicle
[2024-07-13] MEDS: ATORVASTATIN 20 MG TABLET PO (20:31)
[2024-07-14] VITALS (9 sets, daily range): BP systolic 80–165; BP diastolic 46–79; PULSE 68–76; RESP 15–18; TEMP 36.2–36.9; O2SAT 96–98
[2024-07-14] MEDS: ACETAMINOPHEN 325 MG TABLET 650 MG PO ×3 (04:46→22:29)
[2024-07-14] MEDS: MIDODRINE HCL 5 MG TABLET 2.5 MG PO (05:23)
[2024-07-14 06:04] LABS: Blood Urea Nitrogen 20 mg/dL (9-20); Calcium 9.2 mg/dL (8.4-10.2); Carbon Dioxide 28 mmol/L (22-32); Chloride 101 mmol/L (98-107); Estimated Glomerular Filt Rate > 60 mL/min (>60); Glucose 167 mg/dL (80-110); HEMOLYSIS < 15 (0-50); Potassium 3.9 mmol/L (3.4-5.1); Sodium 135 mmol/L (137-145)
--- NOTE | 2024-07-14 08:05 | PM.DS.1 ---
History of Present Illness History of Present Illness Date Patient Seen: 07/14/24 Chief complaint: thinks he had a stroke Discharge Providers Provider Date of admission: 07/11/24 02:15 Consults: 07/11/24 04:48 Consult to Occupational Therapy Evaluate & Treat Comment: Physician Instructions: Evaluate and treat Consult to Physical Therapy Evaluate & Treat Comment: Physician Instructions: Evaluate and Treat Consult to Speech Therapy Evaluate & Treat Comment: Physician Instructions: Evaluate and treat Discharge provider: Anupama Vo MD Summary Hospital Course Hospital Course: 1. Orthostatic hypotension - symptoms are most likely related to orthostatic hypotension of Diabetic Autonomic Neuropathy? MRI negative for acute ischemia / stroke, Echocardiogram is unremarkable. - continue to hold home amlodipine, - continue starting the some Midodrine - improve glycemic control as elevated glucose can lead to dehydration. 2. DM 2 with hyperglycemia - Possible Autonomic neuropathy - continue home medication of NPH BID. May need to switch therapies depending on glucose and how much sliding scale is needed. Hold home glipizide-metformin combo. 3. CAD - recent CABG 03/2024. Continue asa plavix and atorvastatin at home dosing. - unclear if still need for amiodarone. Will continue to look for outside records. 4. HTN - as above, hold amlodipine 5. R foot numbness likely sciatic nerve or diabetic neuropathy (less likely) - benign exam, good strength, MRI negative for CVA. Patient reports waxing and waning symptoms, does seem to occur with R sided sciatic pain. He also has diabetic neuropathy. - continue PT/OT for sciatica as outpatient. No need for further evaluation at this time. symptoms not consistent with CVA. No back pain or urinary / fecal incontinence. Code: Full, surrogate is patient's spouse DVT: Lovenox daily Exam Vital Signs (past 8 hours): - 07/14/24 01:00 07/14/24 05:25 Temperature 97.6 F 97.2 F L Pulse Rate 76 71 Respiratory Rate 15 16 Blood Pressure 119/61 130/68 Pulse Oximetry 96 98 Oxygen Flow Rate 0 0 Oxygen Delivery Method Room Air Oxygen Flow Rate 0 Objective Labs 07/11/24 05:04 07/14/24 04:50 Labs: Laboratory Results - last 24 hr 07/13/24 07/14/24 10:30 04:50 Sodium 134 L 135 L Potassium 4.0 3.9 Chloride 98 101 Carbon Dioxide 28 28 BUN 19 20 Creatinine 0.68 0.69 Estimated GFR > 60 > 60 BUN/Creatinine Ratio 27.9 H 29.0 H Glucose 257 H 167 H Calcium 9.5 9.2 PFSH Medical History (Updated 07/11/24 @ 07:13 by Dorian Cooney MD) HTN (hypertension) Diabetes Coronary artery disease Social History household members: significant other Smoking Status: Never smoker Discharge Plan Discharge Plan Patient Disposition: Home Discharge orders & Medications Prescriptions: No Action atorvastatin 20 mg tablet 20 mg PO BEDTIME amiodarone 200 mg tablet 200 mg PO DAILY amlodipine 2.5 mg tablet 2.5 mg PO DAILY clopidogrel 75 mg tablet 75 mg PO DAILY hydrocodone-acetaminophen 5-325 mg tablet 1 tab PO Q6H PRN (Reason: pain) aspirin 81 mg tablet,delayed release (DR/EC) 81 mg PO DAILY trazodone 100 mg tablet 100 mg PO ONCE PM PRN (Reason: insomnia) gabapentin 300 mg capsule 600 mg PO BEDTIME PRN (Reason: Pain, Moderate) Rx Instructions: Pt reports he takes 3 tabs PRN nightly glipizide-metformin 5-500 mg tablet 2 tab PO BIDAC Humulin N NPH Insulin KwikPen 100 unit/mL (3 mL) insulin pen 5 unit SUBCUT BID Visit Report/Discharge Packet Stand Alone Forms: Patient Portal/API, Stroke Signs & Symptoms Discharge Data Attending Provider: Dorian Ho Admit Date/Time: 07/11/24 02:15
[2024-07-14] MEDS: INSULIN LISPRO 100 UNIT/ML 3ML VIAL SUBCUT ×4 (08:49→22:29)
[2024-07-14] MEDS: INSULIN NPH 100 UNIT/ML 10ML VIAL SUBCUT ×2 (08:50→22:29)
[2024-07-14] MEDS: ENOXAPARIN 40 MG/0.4 ML SYRINGE SUBCUT (08:51)
[2024-07-14] MEDS: CLOPIDOGREL 75 MG TABLET PO (08:51)
[2024-07-14] MEDS: ASPIRIN EC 81 MG TABLET PO (08:51)
[2024-07-14] MEDS: SODIUM CHLORIDE 0.9% FLUSH 10 ML IV ×2 (08:52→22:40)
--- NOTE | 2024-07-14 11:33 | PT.IPTN ---
Current Diagnoses Type 2 diabetes mellitus without complications (07/11/24) Transient cerebral ischemic attack, unspecified (07/11/24) Essential (primary) hypertension (07/11/24) Physical Therapy Treatment Note M2 PT-IP Current Condition Start: 07/11/24 07:39 Freq: NEEDED Status: Active Protocol: Document 07/11/24 10:03 MB (Rec: 07/11/24 10:35 MB [id number]) Physical Therapy Current Condition Current Condition Evaluation Date 07/11/24 Treatment Diagnosis Light-headed, syncope M3 PT-IP Subjective Start: 07/11/24 07:39 Freq: NEEDED Status: Active Protocol: Document 07/14/24 11:12 MB (Rec: 07/14/24 11:32 MB [id number]) Subjective Physical Therapy Visit Type Type Treatment Note Visit Start Time 11:12 Visit Stop Time 11:22 Number of STATION WORKER Visits 3 Physical Therapy Visit Comments Patient Comments Pt sitting up in chair upon arrival. Reports ongoing dizziness with standing. M4 PT-IP Mobility and Gait Start: 07/11/24 07:39 Freq: NEEDED Status: Active Protocol: Document 07/14/24 11:12 MB (Rec: 07/14/24 11:32 MB [id number]) PT-Transfer Assessment Sit to and From Stand Sit to and from Stand Standby Assistance Equipment Transfer Assistive Device Front Wheeled Walker Orthotic/Prosthetic Devices or Brace: No Comments Mobility Comments BP and HR RUE: sitting 103/62, 70; standing 65/41, 74. Returned to sitting. PT-Balance Assessment Sitting Balance and Reactions Static Sitting Balance Ability Good Dynamic Sitting Balance Ability Good Standing Balance and Reactions Static Standing Balance Ability Good Dynamic Standing Balance Ability Fair Device Used FWW M5 PT-IP Objective Assessments Start: 07/11/24 07:39 Freq: NEEDED Status: Active Protocol: Document 07/11/24 10:03 MB (Rec: 07/11/24 10:35 MB [id number]) Orientation Orientation/Cognition Level of Alertness Alert Orientation Name,Age,Birthday,Month,Date, Year,Place,Situation Language Function Ability No Deficits Noted Safety Awareness Decreased Safety Awareness Comments Pt and girlfriend provide slightly different history of events and they do agree that light-headedness and passing out have been recent issues at home and started prior to open heart surgery in March Gross Range of Motion Upper Extremity ROM Impairments Defer to OT Lower Extremity ROM Assessment Within Functional Limits Strength Lower Extremity Strength Assessment Within Functional Limits Hip 5/5 B hip flexion Knee 5/5 B knee extension Ankle 5/5 B ankle DF and great toe extension Coordination Assessment Gross Coordination Gross Coordination Impaired Assessment Finger to Nose Test Moderate Impairment Heel on Adams Test Moderate Impairment Coordination Comments LUE worse than right UE with finger to nose and all coordination testing is very slow Sensation Assessment Comments Sensation Comments MRI transport arrived and PT does not have time to assess Muscle Tone Muscle Tone WNL Yes M6 PT-IP Treatment Start: 07/11/24 07:39 Freq: NEEDED Status: Active Protocol: Document 07/14/24 11:12 MB (Rec: 07/14/24 11:32 MB [id number]) Physical Therapy Treatment Education Education Provided Safety Other Treatments Other Treatment Performed Ongoing ed to make fluids count in setting of orthostatic hypotension (PT sees caffeinated diet Dr. Rangel on bedside table) M7 PT-IP Assessment and Plan Start: 07/11/24 07:39 Freq: NEEDED Status: Active Protocol: Document 07/14/24 11:12 MB (Rec: 07/14/24 11:32 MB [id number]) PT Summary Assessment and Plan Potential Rehabilitation Potential Fair Status of Condition at Evaluation Unstable Summary Impairments Balance,Coordination,Sensation ,Cognition,Bed Mobility, Transfers,Gait,Activity Tolerance Progress Towards Goals Slow Progress due to Medical Issues,Slow Progress due to Activity Tolerance Assessment Summary Pt con't with severe orthostasis and unable to gait this a.m. given severe BP drop sit to stand. Recommend ongoing up to chair most of the day with nsg assistance. Left up in chair with needs in reach. Goals Bed Mobility Goal Independent Transfer Goal Independent,Cane,Front Wheeled Walker Gait Goal Independent,Cane,Front Wheel Walker Gait Distance 100 Other Goals Pt will ascend and descend one platform step with LRAD and no more than CGA to allow safe home entry. Days to Meet Goals 5 Frequency of Treatment Frequency Of Treatment Once a Day Treatment Plan Physical Therapy Treatment Plan Bed Mobility Training,Transfer Training,Gait Training, Therapeutic Exercise,Balance Retraining,Discharge Planning, Hot or Cold Pack,Neuromuscular Re-ed,Coordination Retraining ,Manual Therapy Precautions Other Precautions Severe orthostasis Weight Bearing Status Weight Bearing Status Weight Bear as Tolerated Recommendations To Nursing Amount of Assist Needed 1 Person Assist Discharge Recommendations PT Discharge Recommendations Home with Assistance Transportation Needs at Discharge Private Vehicle
[2024-07-14] MEDS: MIDODRINE HCL 5 MG TABLET PO ×2 (12:08→18:19)
--- NOTE | 2024-07-14 17:08 | PM.PN.1 ---
Subjective Subjective Interval history: He says that he is feeling well and wishes to go home if his blood pressure is indeed better. He says he has been up and walking and has not felt dizzy as long as he is using his walker. Unfortunately when PT challenged him with a walk his systolic dropped to the 70s indicating continuing orthostatic hypotension. The Midodrine dose will be increased and abdominal binder/compression stockings will be applied. The etiology of his orthostatic tendency remains unclear. His BNP is normal and his glucose is 167. Exam Vital Signs (past 8 hours): - 07/14/24 10:11 07/14/24 13:00 Temperature 97.2 F L Pulse Rate 69 Pulse Rate [Orthostatic Lying] 72 Pulse Rate [Orthostatic Sitting] 72 Pulse Rate [Orthostatic Standing] 74 Respiratory Rate 18 Blood Pressure 93/51 L Blood Pressure [Orthostatic Lying] 131/71 Blood Pressure [Orthostatic Sitting] 121/61 Blood Pressure [Orthostatic Standing] 80/46 L Pulse Oximetry 98 Oxygen Delivery Method Room Air Oxygen Flow Rate 0 Narrative Exam Narrative: He is alert and oriented x3. No apparent distress. Heart is regular rate and rhythm without murmur Lungs are clear to auscultation bilaterally Extremities have no ankle edema. Objective Labs 07/11/24 05:04 07/14/24 04:50 Labs: Laboratory Results - last 24 hr 07/14/24 04:50 Sodium 135 L Potassium 3.9 Chloride 101 Carbon Dioxide 28 BUN 20 Creatinine 0.69 Estimated GFR > 60 BUN/Creatinine Ratio 29.0 H Glucose 167 H Calcium 9.2 PFSH Medical History (Updated 07/11/24 @ 07:13 by Dorian Cooney MD) HTN (hypertension) Diabetes Coronary artery disease Social History household members: significant other Smoking Status: Never smoker Assessment & Plan Assessment & Plan narrative: 1. Orthostatic hypotension - symptoms are most likely related to orthostatic hypotension of Diabetic Autonomic Neuropathy? MRI negative for acute ischemia / stroke, Echocardiogram is unremarkable. - continue to hold home amlodipine, -standing systolic in the 70s when challenged by PT on 07/14. -increase midodrine dose to 5 mg q.i.d. and apply abdominal binder with compression stockings when out of bed. - improve glycemic control as elevated glucose can lead to dehydration. 2. DM 2 with hyperglycemia - Possible Autonomic neuropathy - continue home medication of NPH BID. May need to switch therapies depending on glucose and how much sliding scale is needed. Hold home glipizide-metformin combo. 3. CAD - recent CABG 03/2024. Continue asa plavix and atorvastatin at home dosing. - unclear if still need for amiodarone. Will continue to look for outside records. 4. HTN - as above, hold amlodipine 5. R foot numbness likely sciatic nerve or diabetic neuropathy (less likely) - benign exam, good strength, MRI negative for CVA. Patient reports waxing and waning symptoms, does seem to occur with R sided sciatic pain. He also has diabetic neuropathy. - continue PT/OT for sciatica as outpatient. No need for further evaluation at this time. symptoms not consistent with CVA. No back pain or urinary / fecal incontinence. - not a limiting issue Code: Full, surrogate is patient's spouse DVT: Lovenox daily Time-Based Coding :: [TOTAL MINUTES] spent with patient and on the chart (including review of chart, obtaining history, exam, reviewing outside data, placing orders, documenting exam and treatment plan, and counseling patient) on [DATE].
--- NOTE | 2024-07-14 19:53 | EKG_ITS ---
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
[2024-07-14 20:37] LABS: Troponin I < 0.012 ng/mL (0.01-0.034)
[2024-07-14] MEDS: ATORVASTATIN 20 MG TABLET PO (22:29)
[2024-07-15] VITALS (9 sets, daily range): BP systolic 69–158; BP diastolic 41–77; PULSE 69–98; RESP 12–18; TEMP 36.3–36.7; O2SAT 96–99
--- NOTE | 2024-07-15 00:19 | PC.NURSE ---
2044: Patient reported 2/10 chest pain, stated that it felt tight and would get sharp, shooting pain at times. BP elevated (VS documented), O2 saturation 99% on RA. Patient denies nausea, SOB, or dizziness at rest. Notified MD Cooney, stat 12-lead EKG & troponin ordered, findings WNL. Notified MD Cooney of results. Removed abdominal binder while laying in bed, patient stated that pain was relieved. Cont tele in place. Plan of care ongoing.
[2024-07-15] MEDS: MIDODRINE HCL 5 MG TABLET PO ×3 (05:47→17:02)
[2024-07-15 07:05] LABS: BUN Creatinine Ratio 29.9 (6-22); Blood Urea Nitrogen 20 mg/dL (9-20); Calcium 9.5 mg/dL (8.4-10.2); Carbon Dioxide 25 mmol/L (22-32); Chloride 103 mmol/L (98-107); Estimated Glomerular Filt Rate > 60 mL/min (>60); Glucose 205 mg/dL (80-110); HEMOLYSIS < 15 (0-50); Potassium 4.3 mmol/L (3.4-5.1); Sodium 136 mmol/L (137-145)
[2024-07-15] MEDS: CLOPIDOGREL 75 MG TABLET PO (08:15)
[2024-07-15] MEDS: ACETAMINOPHEN 325 MG TABLET 650 MG PO ×3 (08:15→21:27)
[2024-07-15] MEDS: ENOXAPARIN 40 MG/0.4 ML SYRINGE SUBCUT (08:15)
[2024-07-15] MEDS: ASPIRIN EC 81 MG TABLET PO (08:15)
[2024-07-15] MEDS: INSULIN LISPRO 100 UNIT/ML 3ML VIAL SUBCUT ×4 (08:21→21:28)
[2024-07-15] MEDS: INSULIN NPH 100 UNIT/ML 10ML VIAL SUBCUT ×2 (08:21→21:27)
[2024-07-15] MEDS: SODIUM CHLORIDE 0.9% FLUSH 10 ML IV ×2 (08:24→21:37)
--- NOTE | 2024-07-15 10:39 | CM.DPC ---
DCP Cont. Reviewed EMR and team rounds for status updates. Pt remains orthostatic, is not yet stable enough for home d/c. Will continue to monitor closely.
--- NOTE | 2024-07-15 12:59 | PT-IP ANOTE ---
PT arrived to check on pt and nsg checked orthostatics recently and pt con't with severe orthostasis. Con't PT efforts a later date. Overall, pt's mobility is limited by medical issues and mobility is not his biggest issue. Feel once BP is better managed, he will not have much issues with mobility and can use LRAD.
--- NOTE | 2024-07-15 13:34 | OT.IP.TRT ---
Current Diagnoses Type 2 diabetes mellitus without complications (07/11/24) Transient cerebral ischemic attack, unspecified (07/11/24) Essential (primary) hypertension (07/11/24) Occupational Therapy Treatment Note M2 OT-IP Current Condition Start: 07/11/24 14:34 Freq: Status: Active Protocol: Document 07/11/24 14:34 [facility] (Rec: 07/11/24 14:50 [facility] [id number]) Occupational Therapy Current Condition Current Condition Evaluation Date 07/11/24 Treatment Diagnosis SYncope Diagnosis Onset Date 07/11/24 M3 OT- IP Subjective and Pain Start: 07/11/24 14:34 Freq: Status: Active Protocol: Document 07/15/24 13:51 [facility] (Rec: 07/15/24 13:59 [facility] [id number]) OT- Subjective Occupational Therapy Visit Type Type Treatment Note Visit Start Time 12:52 Visit Stop Time 13:12 Occupational Therapy Visit Comments Patient Comments Pt agreed to try to stand up. Patient/Caregiver Goals TO go home and get better. OT Pain Assessment Pain When Pain Assessed At Rest Pain Present Pain Present Denied Pain M4 OT- IP ADL's Start: 07/11/24 14:34 Freq: Status: Active Protocol: Document 07/15/24 13:51 [facility] (Rec: 07/15/24 13:59 [facility] [id number]) OT EYN-Zazt-Ehbmrmy General Evaluation Self-Feeding Ability Independent OT ADL-Grooming Comments OT Grooming Comments Not performed. OT ADL-Oral Care Comments Oral Care Comments Not performed. OT ADL-Dressing Comments OT Dressing Comments Pt not wanting to do at this time. OT ADL-Bathing Comments OT Bathing Comments Sponge bath or use of rolling shower chair. M5 OT- IP IADL's Start: 07/11/24 14:34 Freq: Status: Active Protocol: Document 07/11/24 14:34 [facility] (Rec: 07/11/24 14:50 [facility] [id number]) OT-Instrumental Activities of Daily Living Home Safety Awareness Home Safety Comments Pt insistent that he can care for himself and not open to getting a 4ww but agrees for his girlfriend to picked edge sewing machine operator a FWW and shower chair. Money Management Money Management Comments Pt will benefit form assist. Meal Preparation Meal Preparation Caregiver Provides Assist Gis Programmer Gis Programmer Caregiver Provides Assist Driving Driving Concerns Identified Regarding Safety Driving Comments Pt agrees that he is not safe to drive at this time. M6 OT- IP Functional Cognition Start: 07/11/24 14:34 Freq: Status: Active Protocol: Document 07/15/24 13:51 [facility] (Rec: 07/15/24 13:59 [facility] [id number]) Cognitive Factors Limiting Selfcare Function Cognitive Ability Level of Alertness Alert Safety Awareness Underestimates Need for Assistance Cognitive Comments Cognitive Assessment Comments Pt not wanting to redo cognitive assessment. Pt states that his othrostatic hypotension has progressively worsen since January this year. M7 OT- IP Mobility and Balance Start: 07/11/24 14:34 Freq: Status: Active Protocol: Document 07/15/24 13:51 [facility] (Rec: 07/15/24 13:59 [facility] [id number]) OT- Bed Mobility Assessment Supine to Sit Supine to Sit Assist Standby Assistance Sit to Supine Sit to Supine Assist Standby Assistance OT-Transfer Assessment Sit to and From Stand Sit to and from Stand Standby Assistance Comments Mobility Comments BP sitting 116/67, standing drops to 64/41 even with compression stockings on and abdominal binder, and back sitting 84/49 and wanting to lie back down. OT- Balance Assessment Sitting Balance and Reactions Static Sitting Balance Ability Good Dynamic Sitting Balance Ability Fair Standing Balance and Reactions Static Standing Balance Ability Fair M8 OT- IP Objective Assessments Start: 07/11/24 14:34 Freq: Status: Active Protocol: Document 07/11/24 14:34 [facility] (Rec: 07/11/24 14:50 [facility] [id number]) OT Gross Range of Motion Upper Extremity Range of Motion Assessment Within Functional Limits OT Strength Upper Extremity Strength Assessment Within Functional Limits OT- Coordination Assessment Upper Extremity Finger to Nose Test Within Functional Limits M9 OT- IP Assessment and Plan Start: 07/11/24 14:34 Freq: Status: Active Protocol: Document 07/15/24 13:51 [facility] (Rec: 07/15/24 13:59 [facility] [id number]) OT Summary Assessment and Plan Potential Rehabilitation Potential Good Analytic Complexity at Evaluation Moderate Summary OT Impairments Balance,Functional Cognition, Functional Mobility,Dressing, Toileting,Bathing,Toilet Transfers Progress Towards Goals Slow Progress due to Medical Issues Assessment Summary Pt still having orthrostatic symptoms in sitting 116/67 and 64/41 while standing. At this time pt main barriers are medical which limits his activity and function. Pt to go home when medically stable. Pt may benefit from home health. Goals Grooming Goal Independent Dressing Goal Independent Toileting Goal Independent Bathing Goal Standby Assistance Toilet Transfer Goal Independent Shower Transfer Goal Standby Assistance Days to Meet Goals 6 Frequency of Treatment Other frequency 5x/week Treatment Plan OT Treatment Plan ADL Training,Functional Cognition Training,Functional Mobility,Patient/Family Education,Discharge Planning Other Treatment Recommendations and Next Standing ADL's Treatment Focus Discharge Recommendations OT Discharge Recommendations Home with Assistance,Home Health Home Equipment Needs FWW, shower chair Transportation Needs at Discharge Private Vehicle
[2024-07-15] MEDS: FLUDROCORTISONE 0.1 MG TABLET PO (15:39)
--- NOTE | 2024-07-15 15:55 | PM.PN.1 ---
Subjective Subjective Interval history: Continues to be orthostatic. BP dropped significantly again today. Will add fludrocortisone in addition to midodrine. Exam Vital Signs (past 8 hours): - 07/15/24 08:00 07/15/24 12:00 07/15/24 12:00 Temperature 97.5 F L 97.5 F L Pulse Rate 70 69 Pulse Rate [Orthostatic Lying] 69 Pulse Rate [Orthostatic Sitting] 70 Pulse Rate [Orthostatic Standing] 74 Respiratory Rate 12 16 Blood Pressure 141/67 H 133/67 Blood Pressure [Orthostatic Lying] 133/67 Blood Pressure [Orthostatic Sitting] 105/60 Blood Pressure [Orthostatic Standing] 72/46 L Pulse Oximetry 98 98 Oxygen Flow Rate 0 0 Oxygen Delivery Method Room Air Oxygen Flow Rate 0 Narrative Exam Narrative: He is alert and oriented x3. No apparent distress. Heart is regular rate and rhythm without murmur Lungs are clear to auscultation bilaterally Extremities have no ankle edema. Objective Labs 07/11/24 05:04 07/15/24 05:50 Labs: Laboratory Results - last 24 hr 07/14/24 07/15/24 20:08 05:50 Sodium 136 L Potassium 4.3 Chloride 103 Carbon Dioxide 25 BUN 20 Creatinine 0.67 Estimated GFR > 60 BUN/Creatinine Ratio 29.9 H Glucose 205 H Calcium 9.5 Troponin I < 0.012 [facility] Medical History (Updated 07/11/24 @ 07:13 by Dorian Cooney MD) HTN (hypertension) Diabetes Coronary artery disease Social History household members: significant other Smoking Status: Never smoker Assessment & Plan Assessment & Plan narrative: 1. Orthostatic hypotension - symptoms are most likely related to orthostatic hypotension of Diabetic Autonomic Neuropathy? MRI negative for acute ischemia / stroke, Echocardiogram is unremarkable. - continue to hold home amlodipine, -standing systolic in the 70s when challenged by PT on 07/14. -increase midodrine dose to 5 mg q.i.d. and apply abdominal binder with compression stockings when out of bed. Also will add fludrocortisone given persistent fall in BPs. - improve glycemic control as elevated glucose can lead to dehydration. 2. DM 2 with hyperglycemia - Possible Autonomic neuropathy - continue home medication of NPH BID. May need to switch therapies depending on glucose and how much sliding scale is needed. Hold home glipizide-metformin combo. 3. CAD - recent CABG 03/2024. Continue asa plavix and atorvastatin at home dosing. - unclear if still need for amiodarone. Will continue to look for outside records. 4. HTN - as above, hold amlodipine 5. R foot numbness likely sciatic nerve or diabetic neuropathy (less likely) - benign exam, good strength, MRI negative for CVA. Patient reports waxing and waning symptoms, does seem to occur with R sided sciatic pain. He also has diabetic neuropathy. - continue PT/OT for sciatica as outpatient. No need for further evaluation at this time. symptoms not consistent with CVA. No back pain or urinary / fecal incontinence. - not a limiting issue Code: Full, surrogate is patient's spouse DVT: Lovenox daily Dispo: inpatient, home when orthostatics are improved or less symptomatic. Time-Based Coding :: [TOTAL MINUTES] spent with patient and on the chart (including review of chart, obtaining history, exam, reviewing outside data, placing orders, documenting exam and treatment plan, and counseling patient) on [DATE].
[2024-07-15] MEDS: ATORVASTATIN 20 MG TABLET PO (21:27)
[2024-07-16] VITALS (9 sets, daily range): BP systolic 78–168; BP diastolic 42–84; PULSE 68–76; RESP 17–20; TEMP 36.2–36.6; O2SAT 95–99
[2024-07-16] MEDS: ACETAMINOPHEN 325 MG TABLET 650 MG PO ×3 (04:45→18:07)
[2024-07-16] MEDS: MIDODRINE HCL 5 MG TABLET PO (05:38)
--- NOTE | 2024-07-16 09:34 | ST.IPTN ---
Visit Care Team Role Provider Type Hayes Diaz DO Emergency Provider Physician Address: [address] [place] [address], [id number] Dorian Cooney MD Admit Provider Physician Attending Provider Address: [address] [place] [address], [id number] MACHINE ADJUSTER LEADER CASE TRIM Treatment Note MACHINE ADJUSTER LEADER CASE TRIM Treatment Note Start: 07/12/24 11:10 Freq: Status: Active Protocol: Document 07/16/24 09:22 SS (Rec: 07/16/24 09:34 SS [id number]) Speech Pathology Treatment Note Session Time Visit Start Time 09:00 Visit Stop Time 09:16 Total Visit Minutes 16 Visit Information Visit Number 3 Insurance Information [facility] Treatment Setting Acute Care Visit Type Note Type Treatment Note General Information Patient History 64 y/o with PMH of HTN, CAD, DM, went to sleep on 07/10 around 8-9 pm after he watched TV with his girlfriend, woke up few hours ago to go to bathroom and was dizzy, with impaired balance and acted confused. He had difficulty speaking as well. ED workup with non-revealing CTH and CTA of head and neck. Stable vital signs. Placed in observation with TIA/CVA. Pt referred to ST due to ongoing c/o difficulties with word finding and speech clarity. Subjective Identification Type Name,ID Wristband Observations/Patient Presentation Pt sitting up in bed upon arrival. Reports ongoing dizziness with standing. Additionally, reports that speech symptoms have resolved and he has not noted imprecision or slow rate over the weekend. He denies word- finding difficulty. Objective Short Term Goals Pt and family/caregivers will benefit from education in compensatory strategies for wordfinding in order to reduce frustration with expressive aphasia symptoms. 07/16/24: Goal met. Pt and family/caregivers will benefit from education in oral motor/speech exercises for dysarthria in order to decrease increase speed and accuracy of articulation and decrease s/sx dysarthria/ slurred speech. 07/16/24: Goal met. Treatment Activities Treatment focused on education and implementation of compensatory strategies for dysarthria and word-finding. Assessment Patient Response to Treatment Excellent Rehab Potential Excellent Impairments Identified Expressive language,Speech Progress Towards Goals Excellent Progress Assessment of Overall Progress Improving Assessment of Improvement Facilitated discussion re: pt? s concerns and observations since last session. Pt reports his speech is back to baseline and he has not noted any instances of anomia. Per informal observation, mild speech imprecision and reduced rate of speech appear to be resolved. Pt did not demonstrate any instances of word-finding difficulty in unstructured conversation. Reviewed education re: compensatory strategies for dysarthria, including use of slower rate, over-articulation , saying one word at a time, and rephrasing. Pt expressed understanding of strategies though did not need to use them in conversation as dysarthria symptoms have resolved. Additionally, MACHINE ADJUSTER LEADER CASE TRIM reviewed education re: compensatory strategies for word-finding, including pausing and taking a deep breath, trying to think of the first letter/sound, using a similar word/phrase, stating the topic, and describing it. Pt expressed understanding of education, though did not need to utilize them in conversation as he did not demonstrate any instances of anomia or hesitation on conversation. Discussed discharge from services as pt?s symptoms appear to have resolved and he denies new concerns with cognition/swallowing. Pt agreeable to discharge at this time. RN notified of plan to discharge. Please re-consult if new concerns arise. Reviewed with Patient Progress Being Made Patient/Caregiver Understanding Excellent Plan Amount of Therapy Recommended No Further Therapy Therapy Recommendations Discharge from Speech Therapy
[2024-07-16] MEDS: ENOXAPARIN 40 MG/0.4 ML SYRINGE SUBCUT (09:38)
[2024-07-16] MEDS: INSULIN NPH 100 UNIT/ML 10ML VIAL SUBCUT ×2 (09:38→21:22)
[2024-07-16] MEDS: INSULIN LISPRO 100 UNIT/ML 3ML VIAL SUBCUT ×4 (09:38→21:23)
[2024-07-16] MEDS: ASPIRIN EC 81 MG TABLET PO (09:39)
[2024-07-16] MEDS: FLUDROCORTISONE 0.1 MG TABLET PO (09:39)
[2024-07-16] MEDS: CLOPIDOGREL 75 MG TABLET PO (09:39)
[2024-07-16] MEDS: SODIUM CHLORIDE 0.9% FLUSH 10 ML IV ×2 (09:43→21:24)
--- NOTE | 2024-07-16 10:58 | OT.IP.TRT ---
Current Diagnoses Type 2 diabetes mellitus without complications (07/14/24) Transient cerebral ischemic attack, unspecified (07/14/24) Essential (primary) hypertension (07/14/24) Occupational Therapy Treatment Note M2 OT-IP Current Condition Start: 07/11/24 14:34 Freq: Status: Active Protocol: Document 07/11/24 14:34 [facility] (Rec: 07/11/24 14:50 [facility] [id number]) Occupational Therapy Current Condition Current Condition Evaluation Date 07/11/24 Treatment Diagnosis SYncope Diagnosis Onset Date 07/11/24 M3 OT- IP Subjective and Pain Start: 07/11/24 14:34 Freq: Status: Active Protocol: Document 07/16/24 10:58 [facility] (Rec: 07/16/24 11:26 [facility] [id number]) OT- Subjective Occupational Therapy Visit Type Type Treatment Note Visit Start Time 10:25 Visit Stop Time 10:58 Occupational Therapy Visit Comments Patient Comments Pt agreed to try to get up to the sink. Pt states was able to shower yesterday and able to sit for the shower. Patient/Caregiver Goals To go home. OT Pain Assessment Pain When Pain Assessed At Rest Pain Present Pain Present Denied Pain M4 OT- IP ADL's Start: 07/11/24 14:34 Freq: Status: Active Protocol: Document 07/16/24 10:58 [facility] (Rec: 07/16/24 11:26 [facility] [id number]) OT ADL-Dressing General Eval Lower Body Dressing Ability Independent Comments OT Dressing Comments After education, pt able to independently tomi/doff his compression stockings. M5 OT- IP IADL's Start: 07/11/24 14:34 Freq: Status: Active Protocol: Document 07/11/24 14:34 [facility] (Rec: 07/11/24 14:50 [facility] [id number]) OT-Instrumental Activities of Daily Living Home Safety Awareness Home Safety Comments Pt insistent that he can care for himself and not open to getting a 4ww but agrees for his girlfriend to fiber picker a FWW and shower chair. Money Management Money Management Comments Pt will benefit form assist. Meal Preparation Meal Preparation Caregiver Provides Assist Preschool Assistant Preschool Assistant Caregiver Provides Assist Driving Driving Concerns Identified Regarding Safety Driving Comments Pt agrees that he is not safe to drive at this time. M6 OT- IP Functional Cognition Start: 07/11/24 14:34 Freq: Status: Active Protocol: Document 07/16/24 10:58 [facility] (Rec: 07/16/24 11:26 [facility] [id number]) Cognitive Factors Limiting Selfcare Function Cognitive Comments Cognitive Assessment Comments Pt scored 111 seconds for [place] Making Part B which was much improved from 160seconds on Jul 11, 2024. Pt score implies mild impairments for visual attention, speed of processing, mental flexibility, executive functioning, and task switching. For pt's age score is below 20% . M7 OT- IP Mobility and Balance Start: 07/11/24 14:34 Freq: Status: Active Protocol: Document 07/16/24 10:58 [facility] (Rec: 07/16/24 11:26 [facility] [id number]) OT- Bed Mobility Assessment Supine to Sit Supine to Sit Assist Independent Sit to Supine Sit to Supine Assist Independent OT-Transfer Assessment Sit to and From Stand Sit to and from Stand Independent Comments Mobility Comments BP sitting 124/64, standing 64 /42 and feeling light headed and having difficulty to get the words out, BP standing 62/ 39-pt having difficulty per pt to coordinate his movements. Pt sat back down and BP 93/55 and able to talk and move normally again. OT- Balance Assessment Sitting Balance and Reactions Static Sitting Balance Ability Normal Dynamic Sitting Balance Ability Good Standing Balance and Reactions Static Standing Balance Ability Good M8 OT- IP Objective Assessments Start: 07/11/24 14:34 Freq: Status: Active Protocol: Document 07/11/24 14:34 [facility] (Rec: 07/11/24 14:50 [facility] [id number]) OT Gross Range of Motion Upper Extremity Range of Motion Assessment Within Functional Limits OT Strength Upper Extremity Strength Assessment Within Functional Limits OT- Coordination Assessment Upper Extremity Finger to Nose Test Within Functional Limits M9 OT- IP Assessment and Plan Start: 07/11/24 14:34 Freq: Status: Active Protocol: Document 07/16/24 10:58 [facility] (Rec: 07/16/24 11:26 [facility] [id number]) OT Summary Assessment and Plan Potential Rehabilitation Potential Good Analytic Complexity at Evaluation Moderate Summary Progress Towards Goals Slow Progress due to Medical Issues Assessment Summary Pt able to do all his ADL's and mainly just needing sba for showering needs and delbert seated at this time as pt's BP still drops while standing. Pt appears to be at his baseline for ADL needs and mobility affected by his drop in BP. Pt states does not feel like OT is needed anymore. Therefore discharge pt from OT services. Able to notify case management and hospitalist of discharge from OT services at this time. Frequency of Treatment Frequency Of Treatment Discharge Discharge Recommendations OT Discharge Recommendations Home with Assistance Home Equipment Needs FWW, shower chair Transportation Needs at Discharge Private Vehicle
[2024-07-16] MEDS: MIDODRINE HCL 5 MG TABLET 10 MG PO ×2 (12:04→18:07)
--- NOTE | 2024-07-16 14:06 | PT.IPTN ---
Current Diagnoses Type 2 diabetes mellitus without complications (07/14/24) Transient cerebral ischemic attack, unspecified (07/14/24) Essential (primary) hypertension (07/14/24) Physical Therapy Treatment Note M2 PT-IP Current Condition Start: 07/11/24 07:39 Freq: NEEDED Status: Active Protocol: Document 07/11/24 10:03 MB (Rec: 07/11/24 10:35 MB [id number]) Physical Therapy Current Condition Current Condition Evaluation Date 07/11/24 Treatment Diagnosis Light-headed, syncope M3 PT-IP Subjective Start: 07/11/24 07:39 Freq: NEEDED Status: Active Protocol: Document 07/16/24 14:06 AB (Rec: 07/16/24 15:58 AB [id number]) Subjective Physical Therapy Visit Type Type Treatment Note Visit Start Time 14:06 Visit Stop Time 14:31 Number of ESCALATOR MECHANIC Visits 0 Physical Therapy Visit Comments Patient Comments agreeable to do PT M4 PT-IP Mobility and Gait Start: 07/11/24 07:39 Freq: NEEDED Status: Active Protocol: Document 07/16/24 14:06 AB (Rec: 07/16/24 15:58 AB [id number]) PT-Bed Mobility Assessment Supine to Sit Supine to Sit Standby Assistance Sit to Supine Sit to Supine Standby Assistance PT-Transfer Assessment Sit to and From Stand Sit to and from Stand Contact Guard Assistance,1 Person Assistance,Use of Upper Extremities Equipment Transfer Assistive Device Gait Belt,Front Wheeled Walker Orthotic/Prosthetic Devices or Brace: No Comments Mobility Comments pt supine in bed and agreeable to do PT. BP monitored. BP in supine: 130/63. pt with SARATH haq on but refused to use abdominal binder. completed supine to sit SBA. able to sit on EOB SBA. BP in sittin/57. pt was able to sit on EOB for ~ 2-3 minutes. c/o slight lightheadedness but stable. BP checked again: 130 /59. pt completed sit to stand CGA. BP instandin/ 45. pt able to stand for ~ 2 minutes. c/o dizziness/ lightheadedness. BP recheced: 81/48. instructed pt to sit down on EOB. BP rechecked: 118 /59. pt rested. completed sit to stand again CGA and took a few steps sideways towards HOB CGA. completed sit to supine SBA. positioned pt in bed. call light and table placed within reach. M5 PT-IP Objective Assessments Start: 07/11/24 07:39 Freq: NEEDED Status: Active Protocol: Document 07/11/24 10:03 MB (Rec: 07/11/24 10:35 MB [id number]) Orientation Orientation/Cognition Level of Alertness Alert Orientation Name,Age,Birthday,Month,Date, Year,Place,Situation Language Function Ability No Deficits Noted Safety Awareness Decreased Safety Awareness Comments Pt and girlfriend provide slightly different history of events and they do agree that light-headedness and passing out have been recent issues at home and started prior to open heart surgery in March Gross Range of Motion Upper Extremity ROM Impairments Defer to OT Lower Extremity ROM Assessment Within Functional Limits Strength Lower Extremity Strength Assessment Within Functional Limits Hip 5/5 B hip flexion Knee 5/5 B knee extension Ankle 5/5 B ankle DF and great toe extension Coordination Assessment Gross Coordination Gross Coordination Impaired Assessment Finger to Nose Test Moderate Impairment Heel on Adams Test Moderate Impairment Coordination Comments LUE worse than right UE with finger to nose and all coordination testing is very slow Sensation Assessment Comments Sensation Comments MRI transport arrived and PT does not have time to assess Muscle Tone Muscle Tone WNL Yes M6 PT-IP Treatment Start: 07/11/24 07:39 Freq: NEEDED Status: Active Protocol: Document 07/16/24 14:06 AB (Rec: 07/16/24 15:58 AB [id number]) Physical Therapy Treatment Education Education Provided Safety M7 PT-IP Assessment and Plan Start: 07/11/24 07:39 Freq: NEEDED Status: Active Protocol: Document 07/16/24 14:06 AB (Rec: 07/16/24 15:58 AB [id number]) PT Summary Assessment and Plan Potential Rehabilitation Potential Fair Summary Impairments Strength,Balance,Bed Mobility, Transfers,Gait,Activity Tolerance Assessment Summary pt continues to present with orthostatic hypotension with BP decreased to 84/48 in standing with c/o dizziness/ lightheadedness limiting activity tolerance. pt requiring CGA with sit to stand and was only able to take side steps towards HOB for positioning using FWW CGA due to decrease BP. will continue to assess progress. Goals Bed Mobility Goal Independent Transfer Goal Independent,Cane,Front Wheeled Walker Gait Goal Independent,Cane,Front Wheel Walker Gait Distance 100 Other Goals Pt will ascend and descend one platform step with LRAD and no more than CGA to allow safe home entry. Days to Meet Goals 5 Frequency of Treatment Frequency Of Treatment Once a Day Treatment Plan Physical Therapy Treatment Plan Bed Mobility Training,Transfer Training,Gait Training, Therapeutic Exercise,Balance Retraining,Discharge Planning, Hot or Cold Pack,Neuromuscular Re-ed,Coordination Retraining ,Manual Therapy Precautions Brace SARATH hose; abdominal binder Other Precautions othostatic hypotension Recommendations To Nursing Amount of Assist Needed 1 Person Assist Discharge Recommendations PT Discharge Recommendations Home with Assistance
--- NOTE | 2024-07-16 18:07 | P.PN_ITS ---
Subjective Subjective Interval history: Continues to be orthostatic. BP dropped significantly again today. Increased midodrine dosing today. Exam Vital Signs (past 8 hours): - 07/16/24 12:05 Temperature 97.2 F L Pulse Rate 68 Respiratory Rate 18 Blood Pressure 108/57 L Pulse Oximetry 99 Oxygen Flow Rate 0 Oxygen Delivery Method Room Air Oxygen Flow Rate 0 Narrative Exam Narrative: He is alert and oriented x3. No apparent distress. Heart is regular rate and rhythm without murmur Lungs are clear to auscultation bilaterally Extremities have no ankle edema. Objective Labs 07/11/24 05:04 07/15/24 05:50 [facility] Medical History (Updated 07/11/24 @ 07:13 by Dorian Cooney MD) HTN (hypertension) Diabetes Coronary artery disease Social History household members: significant other Smoking Status: Never smoker Assessment & Plan Assessment & Plan narrative: 1. Orthostatic hypotension - symptoms are most likely related to orthostatic hypotension of Diabetic Autonomic Neuropathy? MRI negative for acute ischemia / stroke, Echocardiogram is unremarkable. - continue to hold home amlodipine, -standing systolic in the 70s when challenged by PT on 07/14. -increase midodrine dose to 10 mg q.i.d. and apply abdominal binder with compression stockings when out of bed. Also added fludrocortisone given persistent fall in BPs. - improve glycemic control as elevated glucose can lead to dehydration. 2. DM 2 with hyperglycemia - Possible Autonomic neuropathy - continue home medication of NPH BID. May need to switch therapies depending on glucose and how much sliding scale is needed. Hold home glipizide-metformin combo. 3. CAD - recent CABG 03/2024. Continue asa plavix and atorvastatin at home dosing. - unclear if still need for amiodarone. Will continue to look for outside records. 4. HTN - as above, hold amlodipine 5. R foot numbness likely sciatic nerve or diabetic neuropathy (less likely) - benign exam, good strength, MRI negative for CVA. Patient reports waxing and waning symptoms, does seem to occur with R sided sciatic pain. He also has diabetic neuropathy. - continue PT/OT for sciatica as outpatient. No need for further evaluation at this time. symptoms not consistent with CVA. No back pain or urinary / fecal incontinence. - not a limiting issue Code: Full, surrogate is patient's spouse DVT: Lovenox daily Dispo: inpatient, home when orthostatics are improved or less symptomatic. Today he had return of presenting symptoms with his drop in BP. Time-Based Coding :: [TOTAL MINUTES] spent with patient and on the chart (including review of chart, obtaining history, exam, reviewing outside data, placing orders, documenting exam and treatment plan, and counseling patient) on [DATE].
[2024-07-16] MEDS: ATORVASTATIN 20 MG TABLET PO (21:22)
[2024-07-17] VITALS (7 sets, daily range): BP systolic 71–166; BP diastolic 42–75; PULSE 65–73; RESP 17–20; TEMP 36.3–36.7; O2SAT 97–99
[2024-07-17] MEDS: ACETAMINOPHEN 325 MG TABLET 650 MG PO ×3 (02:01→18:02)
[2024-07-17] MEDS: MIDODRINE HCL 5 MG TABLET 10 MG PO ×3 (07:00→18:00)
[2024-07-17] MEDS: INSULIN LISPRO 100 UNIT/ML 3ML VIAL SUBCUT ×4 (08:47→21:43)
[2024-07-17] MEDS: INSULIN NPH 100 UNIT/ML 10ML VIAL SUBCUT ×2 (08:47→21:42)
[2024-07-17] MEDS: ENOXAPARIN 40 MG/0.4 ML SYRINGE SUBCUT (08:48)
[2024-07-17] MEDS: FLUDROCORTISONE 0.1 MG TABLET PO ×2 (08:48→21:39)
[2024-07-17] MEDS: CLOPIDOGREL 75 MG TABLET PO (08:48)
[2024-07-17] MEDS: ASPIRIN EC 81 MG TABLET PO (08:49)
[2024-07-17] MEDS: SODIUM CHLORIDE 0.9% FLUSH 10 ML IV ×2 (08:51→21:48)
--- NOTE | 2024-07-17 09:07 | PT.IPTN ---
Current Diagnoses Type 2 diabetes mellitus without complications (07/14/24) Transient cerebral ischemic attack, unspecified (07/14/24) Essential (primary) hypertension (07/14/24) Physical Therapy Treatment Note M2 PT-IP Current Condition Start: 07/11/24 07:39 Freq: NEEDED Status: Active Protocol: Document 07/11/24 10:03 MB (Rec: 07/11/24 10:35 MB [id number]) Physical Therapy Current Condition Current Condition Evaluation Date 07/11/24 Treatment Diagnosis Light-headed, syncope M3 PT-IP Subjective Start: 07/11/24 07:39 Freq: NEEDED Status: Active Protocol: Document 07/17/24 09:29 TS (Rec: 07/17/24 09:42 TS [id number]) Subjective Physical Therapy Visit Type Type Treatment Note Visit Start Time 09:07 Visit Stop Time 09:28 Number of CONTINUOUS CHURN BUTTERMAKER Visits 1 Physical Therapy Visit Comments Patient Comments Pt reports continued dizziness and blurry vision when standing. Pt is agreeable to PT. M4 PT-IP Mobility and Gait Start: 07/11/24 07:39 Freq: NEEDED Status: Active Protocol: Document 07/17/24 09:29 TS (Rec: 07/17/24 09:42 TS [id number]) PT-Bed Mobility Assessment Supine to Sit Supine to Sit Standby Assistance Sit to Supine Sit to Supine Standby Assistance Scooting Scooting to Edge of Bed Standby Assistance Scooting Up and Down in Bed Standby Assistance PT-Transfer Assessment Sit to and From Stand Sit to and from Stand Standby Assistance Equipment Transfer Assistive Device Gait Belt,Front Wheeled Walker Orthotic/Prosthetic Devices or Brace: No Comments Mobility Comments Pt sitting EOB, BP in sitting 132/71, pt reported some lightheadedness. STS with FWW x1, BP taken in standing 75/39 , pt requires to sit back EOB. Pt recovers BP after ~2mins, BP in sitting 133/64. He performs STS x5 in ~40secs with FWW, has some fatigue. Pt was left back in bed, all needs met. PT-Balance Assessment Sitting Balance and Reactions Static Sitting Balance Ability Normal Dynamic Sitting Balance Ability Good Standing Balance and Reactions Static Standing Balance Ability Good Dynamic Standing Balance Ability Fair Device Used FWW M5 PT-IP Objective Assessments Start: 07/11/24 07:39 Freq: NEEDED Status: Active Protocol: Document 07/11/24 10:03 MB (Rec: 07/11/24 10:35 MB [id number]) Orientation Orientation/Cognition Level of Alertness Alert Orientation Name,Age,Birthday,Month,Date, Year,Place,Situation Language Function Ability No Deficits Noted Safety Awareness Decreased Safety Awareness Comments Pt and girlfriend provide slightly different history of events and they do agree that light-headedness and passing out have been recent issues at home and started prior to open heart surgery in March Gross Range of Motion Upper Extremity ROM Impairments Defer to OT Lower Extremity ROM Assessment Within Functional Limits Strength Lower Extremity Strength Assessment Within Functional Limits Hip 5/5 B hip flexion Knee 5/5 B knee extension Ankle 5/5 B ankle DF and great toe extension Coordination Assessment Gross Coordination Gross Coordination Impaired Assessment Finger to Nose Test Moderate Impairment Heel on Adams Test Moderate Impairment Coordination Comments LUE worse than right UE with finger to nose and all coordination testing is very slow Sensation Assessment Comments Sensation Comments MRI transport arrived and PT does not have time to assess Muscle Tone Muscle Tone WNL Yes M6 PT-IP Treatment Start: 07/11/24 07:39 Freq: NEEDED Status: Active Protocol: Document 07/17/24 09:29 TS (Rec: 07/17/24 09:42 TS [id number]) Physical Therapy Treatment Education Education Provided Safety M7 PT-IP Assessment and Plan Start: 07/11/24 07:39 Freq: NEEDED Status: Active Protocol: Document 07/17/24 09:29 TS (Rec: 07/17/24 09:42 TS [id number]) PT Summary Assessment and Plan Potential Rehabilitation Potential Fair Summary Impairments Strength,Balance,Bed Mobility, Transfers,Gait,Activity Tolerance Progress Towards Goals Slow Progress due to Medical Issues Assessment Summary Yonny continues to make slow progress with his mobility due to ongoing hyptonesion. He contineus to be SBA for all mobility. He did not progress to ambulation this session due his hypotension symptoms. PT is recommending home with assist. Goals Bed Mobility Goal Independent Transfer Goal Independent,Cane,Front Wheeled Walker Gait Goal Independent,Cane,Front Wheel Walker Gait Distance 100 Other Goals Pt will ascend and descend one platform step with LRAD and no more than CGA to allow safe home entry. Days to Meet Goals 5 Treatment Plan Physical Therapy Treatment Plan Bed Mobility Training,Transfer Training,Gait Training, Therapeutic Exercise,Balance Retraining,Discharge Planning, Hot or Cold Pack,Neuromuscular Re-ed,Coordination Retraining ,Manual Therapy Precautions Brace SARATH hose; abdominal binder Other Precautions othostatic hypotension Weight Bearing Status Weight Bearing Status Weight Bear as Tolerated Recommendations To Nursing Amount of Assist Needed 1 Person Assist Discharge Recommendations PT Discharge Recommendations Home with Assistance Transportation Needs at Discharge Private Vehicle
--- NOTE | 2024-07-17 12:42 | CM.DPC ---
DCP Cont. Reviewed EMR and team rounds for status updates. Per Hospitalist, pt is still orthostatic today. Likely another 1-2 days for continued improvement. Monitoring for additional d/c needs.
--- NOTE | 2024-07-17 17:40 | PM.PN.1 ---
Subjective Subjective Interval history: Continues to be orthostatic. BP dropped significantly again today. Increased midodrine dosing yesterday, will change to fludrocort 0.2 starting tomorrow. Exam Vital Signs (past 8 hours): - 07/17/24 09:54 07/17/24 12:09 Temperature 97.3 F L Pulse Rate 65 Pulse Rate [Orthostatic Lying] 70 Pulse Rate [Orthostatic Sitting] 71 Pulse Rate [Orthostatic Standing] 73 Respiratory Rate 17 Blood Pressure 134/62 Blood Pressure [Orthostatic Lying] 139/71 Blood Pressure [Orthostatic Sitting] 122/67 Blood Pressure [Orthostatic Standing] 71/42 L Pulse Oximetry 99 Oxygen Delivery Method Room Air Oxygen Flow Rate 0 Narrative Exam Narrative: He is alert and oriented x3. No apparent distress. Heart is regular rate and rhythm without murmur Lungs are clear to auscultation bilaterally Extremities have no ankle edema. Objective Labs 07/11/24 05:04 07/15/24 05:50 [facility] Medical History (Updated 07/11/24 @ 07:13 by Dorian Cooney MD) HTN (hypertension) Diabetes Coronary artery disease Social History household members: significant other Smoking Status: Never smoker Assessment & Plan Assessment & Plan narrative: 1. Orthostatic hypotension - symptoms are most likely related to orthostatic hypotension of Diabetic Autonomic Neuropathy? MRI negative for acute ischemia / stroke, Echocardiogram is unremarkable. - continue to hold home amlodipine, -standing systolic still dropping and he is becoming symptomatic with therapies. -increased midodrine dose to 10 mg q.i.d. and apply abdominal binder with compression stockings when out of bed. Also added fludrocortisone given persistent fall in BPs. Will increase fludocort to BID (now max recommended dosing). Consider strattera if no improvement with max doses of midodrine and fludrocort. - improve glycemic control as elevated glucose can lead to dehydration. 2. DM 2 with hyperglycemia - Possible Autonomic neuropathy - continue home medication of NPH BID. May need to switch therapies depending on glucose and how much sliding scale is needed. Hold home glipizide-metformin combo. 3. CAD - recent CABG 03/2024. Continue asa plavix and atorvastatin at home dosing. - unclear if still need for amiodarone. Will continue to look for outside records. 4. HTN - as above, hold amlodipine 5. R foot numbness likely sciatic nerve or diabetic neuropathy (less likely) - benign exam, good strength, MRI negative for CVA. Patient reports waxing and waning symptoms, does seem to occur with R sided sciatic pain. He also has diabetic neuropathy. - continue PT/OT for sciatica as outpatient. No need for further evaluation at this time. symptoms not consistent with CVA. No back pain or urinary / fecal incontinence. - not a limiting issue Code: Full, surrogate is patient's spouse DVT: Lovenox daily Dispo: inpatient, home when orthostatics are improved or less symptomatic. Today he had return of presenting symptoms with his drop in BP. Time-Based Coding :: [TOTAL MINUTES] spent with patient and on the chart (including review of chart, obtaining history, exam, reviewing outside data, placing orders, documenting exam and treatment plan, and counseling patient) on [DATE].
[2024-07-17] MEDS: ATORVASTATIN 20 MG TABLET PO (21:39)
[2024-07-18 04:29] VITALS: BP 142/61; PULSE 68; RESP 16; TEMP 36.3; O2SAT 99
[2024-07-18] MEDS: MIDODRINE HCL 5 MG TABLET 10 MG PO ×3 (05:41→17:04)
[2024-07-18] MEDS: ACETAMINOPHEN 325 MG TABLET 650 MG PO ×2 (05:42→18:41)
[2024-07-18] MEDS: INSULIN NPH 100 UNIT/ML 10ML VIAL SUBCUT (07:51)
[2024-07-18] MEDS: INSULIN LISPRO 100 UNIT/ML 3ML VIAL SUBCUT ×4 (07:51→20:40)
[2024-07-18 08:00] VITALS: BP 153/73; PULSE 66; RESP 16; TEMP 36.6; O2SAT 97
[2024-07-18] MEDS: ENOXAPARIN 40 MG/0.4 ML SYRINGE SUBCUT (09:04)
[2024-07-18] MEDS: FLUDROCORTISONE 0.1 MG TABLET PO ×2 (09:05→20:40)
[2024-07-18] MEDS: CLOPIDOGREL 75 MG TABLET PO (09:05)
[2024-07-18] MEDS: SODIUM CHLORIDE 0.9% FLUSH 10 ML IV ×2 (09:05→20:45)
[2024-07-18] MEDS: ASPIRIN EC 81 MG TABLET PO (09:05)
[2024-07-18 10:36] VITALS: BP 141/79; BP 152/79; BP 172/82; PULSE 70; PULSE 72; PULSE 76
[2024-07-18 11:00] LABS: Hematocrit 36.2 % (41-53); Hemoglobin 11.8 g/dL (13.5-17.5); Mean Corpuscular HGB Conc 32.7 % (30-36); Mean Corpuscular Hemoglobin 27.2 PG (26-34); Mean Corpuscular Volume 83.3 fL (80-100); Platelet Count 428 X10^3/uL (150-400); Red Blood Cell Count 4.34 X10^6/uL (4.5-5.9); Red Cell Distribution Width 18.4 % (11.6-14.8); White Blood Cell Count 7.6 X10^3/uL (4.5-11.0)
[2024-07-18 11:26] LABS: BUN Creatinine Ratio 28.4 (6-22); Blood Urea Nitrogen 21 mg/dL (9-20); Calcium 9.3 mg/dL (8.4-10.2); Carbon Dioxide 30 mmol/L (22-32); Chloride 100 mmol/L (98-107); Estimated Glomerular Filt Rate > 60 mL/min (>60); Glucose 246 mg/dL (80-110); HEMOLYSIS < 15 (0-50); Potassium 4.3 mmol/L (3.4-5.1); Sodium 135 mmol/L (137-145)
--- NOTE | 2024-07-18 11:30 | PT.IPTN ---
Current Diagnoses Type 2 diabetes mellitus without complications (07/14/24) Transient cerebral ischemic attack, unspecified (07/14/24) Essential (primary) hypertension (07/14/24) Physical Therapy Treatment Note M2 PT-IP Current Condition Start: 07/11/24 07:39 Freq: NEEDED Status: Active Protocol: Document 07/11/24 10:03 MB (Rec: 07/11/24 10:35 MB [id number]) Physical Therapy Current Condition Current Condition Evaluation Date 07/11/24 Treatment Diagnosis Light-headed, syncope M3 PT-IP Subjective Start: 07/11/24 07:39 Freq: NEEDED Status: Active Protocol: Document 07/18/24 11:50 TS (Rec: 07/18/24 11:58 TS [id number]) Subjective Physical Therapy Visit Type Type Treatment Note Visit Start Time 11:30 Visit Stop Time 11:50 Number of DIRECTOR [employer]ORAGE ENGINEERING Visits 2 Physical Therapy Visit Comments Patient Comments Pt found sitting EOB, he is agreeable to PT. M4 PT-IP Mobility and Gait Start: 07/11/24 07:39 Freq: NEEDED Status: Active Protocol: Document 07/18/24 11:50 TS (Rec: 07/18/24 11:58 TS [id number]) PT-Transfer Assessment Sit to and From Stand Sit to and from Stand Standby Assistance Equipment Transfer Assistive Device Gait Belt,Front Wheeled Walker Orthotic/Prosthetic Devices or Brace: No Comments Mobility Comments BP in sitting 145/75. STS with FWW SBA, BP in standing 96/52 , pt reports some dizziness. He ambulated ~175'SBA/CGA with FWW, continues to report some dizziness and weakness. He ambulated back to the room, was left sitting EOB. Educated pt on ambulating with nursing . Gait Assessment Gait Gait Assistance Required: Standby Assistance,Contact Guard Assist Distance (Feet) 175 Assistive Devices Assistive Device Front Wheeled Walker Gait Deviations General Gait Pattern Antalgic,Decreased Stride Length,Decreased Feet Clearance Factors Limiting Gait Function Factors Limiting Gait Function Decreased Activity Tolerance, Decreased Strength,Poor Balance,Poor Safety Awareness PT-Balance Assessment Sitting Balance and Reactions Static Sitting Balance Ability Normal Dynamic Sitting Balance Ability Good Standing Balance and Reactions Static Standing Balance Ability Good Dynamic Standing Balance Ability Fair Device Used FWW M5 PT-IP Objective Assessments Start: 07/11/24 07:39 Freq: NEEDED Status: Active Protocol: Document 07/11/24 10:03 MB (Rec: 07/11/24 10:35 MB [id number]) Orientation Orientation/Cognition Level of Alertness Alert Orientation Name,Age,Birthday,Month,Date, Year,Place,Situation Language Function Ability No Deficits Noted Safety Awareness Decreased Safety Awareness Comments Pt and girlfriend provide slightly different history of events and they do agree that light-headedness and passing out have been recent issues at home and started prior to open heart surgery in March Gross Range of Motion Upper Extremity ROM Impairments Defer to OT Lower Extremity ROM Assessment Within Functional Limits Strength Lower Extremity Strength Assessment Within Functional Limits Hip 5/5 B hip flexion Knee 5/5 B knee extension Ankle 5/5 B ankle DF and great toe extension Coordination Assessment Gross Coordination Gross Coordination Impaired Assessment Finger to Nose Test Moderate Impairment Heel on Adams Test Moderate Impairment Coordination Comments LUE worse than right UE with finger to nose and all coordination testing is very slow Sensation Assessment Comments Sensation Comments MRI transport arrived and PT does not have time to assess Muscle Tone Muscle Tone WNL Yes M6 PT-IP Treatment Start: 07/11/24 07:39 Freq: NEEDED Status: Active Protocol: Document 07/18/24 11:50 TS (Rec: 07/18/24 11:58 TS [id number]) Physical Therapy Treatment Education Education Provided Safety M7 PT-IP Assessment and Plan Start: 07/11/24 07:39 Freq: NEEDED Status: Active Protocol: Document 07/18/24 11:50 TS (Rec: 07/18/24 11:58 TS [id number]) PT Summary Assessment and Plan Potential Rehabilitation Potential Fair Summary Impairments Strength,Balance,Bed Mobility, Transfers,Gait,Activity Tolerance Progress Towards Goals Slow Progress due to Medical Issues Assessment Summary Yonny is making some progress with his mobility but remains limited my ongoing hypotension. He progressed his gait to ~175' SBA/CGA. Pt continues to report dizziness and weakness in standing. PT continues to recommend home with assist. Goals Bed Mobility Goal Independent Transfer Goal Independent,Cane,Front Wheeled Walker Gait Goal Independent,Cane,Front Wheel Walker Gait Distance 100 Other Goals Pt will ascend and descend one platform step with LRAD and no more than CGA to allow safe home entry. Days to Meet Goals 5 Frequency of Treatment Frequency Of Treatment Once a Day Treatment Plan Physical Therapy Treatment Plan Bed Mobility Training,Transfer Training,Gait Training, Therapeutic Exercise,Balance Retraining,Discharge Planning, Hot or Cold Pack,Neuromuscular Re-ed,Coordination Retraining ,Manual Therapy Precautions Brace SARATH hose; abdominal binder Other Precautions othostatic hypotension Weight Bearing Status Weight Bearing Status Weight Bear as Tolerated Recommendations To Nursing Amount of Assist Needed 1 Person Assist Discharge Recommendations PT Discharge Recommendations Home with Assistance Transportation Needs at Discharge Private Vehicle
[2024-07-18 12:00] VITALS: BP 147/77; PULSE 70; RESP 17; TEMP 36.6; O2SAT 100
--- NOTE | 2024-07-18 12:33 | PM.PN.1 ---
Subjective Subjective Interval history: Interval history: Continues to be orthostatic. BP dropped significantly again today. Increased midodrine dosing yesterday, will change to fludrocort 0.2 starting 07/18. S: He was still dizzy with standing and walking, but somewhat improved. He was still orthostatic but the gap is smaller. He was started on fludrocortisone at a higher dose this morning. No dyspnea, or pain concerns. Exam Vital Signs (past 8 hours): - 07/18/24 08:00 07/18/24 10:36 Temperature 97.8 F Pulse Rate 66 Pulse Rate [Orthostatic Lying] 70 Pulse Rate [Orthostatic Sitting] 72 Pulse Rate [Orthostatic Standing] 76 Respiratory Rate 16 Blood Pressure 153/73 H Blood Pressure [Orthostatic Lying] 172/82 H Blood Pressure [Orthostatic Sitting] 152/79 H Blood Pressure [Orthostatic Standing] 141/79 H Pulse Oximetry 97 Oxygen Delivery Method Room Air Oxygen Flow Rate 0 Narrative Exam Narrative: NAD, alert and oriented. Fluent speech. Lungs are clear, normal rate and effort. Heart is regular, no murmur gallop or rub. Abdomen is soft, non distended. Extremities are free of edema. Objective Imaging Multiple studies:: Radiologist's impression: Echo: The ejection fraction is estimated to be 55-60%. Diastolic parameters suggest probable normal left ventricular diastolic function and normal filling pressures. The right ventricle is normal in size and function. There is mild mitral regurgitation. Pulmonary artery pressures cannot be estimated because of the lack of a measurable TR jet velocity but the IVC suggests a CVP of around 3 mmHg. Doppler interrogation and injection of saline echo contrast shows no evidence for an interatrial shunt. Brain MRI: No acute intracranial disease process. No acute or chronic infarct. No intracranial hemorrhage or abnormal intracranial mass. Head and neck CTA: No significant intracranial arterial abnormality is seen. No significant abnormality is seen within the arteries of the neck. Head CT: No acute intracranial pathology. Labs 07/18/24 10:55 07/18/24 10:55 Labs: Laboratory Results - last 24 hr 07/18/24 10:55 WBC 7.6 RBC 4.34 L Hgb 11.8 L Hct 36.2 L MCV 83.3 MCH 27.2 MCHC 32.7 RDW 18.4 H Plt Count 428 H Sodium 135 L Potassium 4.3 Chloride 100 Carbon Dioxide 30 BUN 21 H Creatinine 0.74 Estimated GFR > 60 BUN/Creatinine Ratio 28.4 H Glucose 246 H Calcium 9.3 PFSH Medical History HTN (hypertension) Diabetes Coronary artery disease Social History household members: significant other Smoking Status: Never smoker Assessment & Plan Assessment & Plan narrative: 1. Orthostatic hypotension, present on admission and improving. - symptoms are most likely related to orthostatic hypotension of diabetes. - continue to hold home amlodipine, accepting a higher resting blood pressure is part of improving his orthostasis. -increased midodrine dose to 10 mg q.i.d. and apply abdominal binder with compression stockings when out of bed. Added fludrocortisone given persistent fall in BPs. BID (now max recommended dosing). 2. DM 2 with hyperglycemia, present on admission and improving. - continue home medication of NPH BID. May need to switch therapies depending on glucose and how much sliding scale is needed. Hold home glipizide-metformin combo. 3. CAD, present on admission and stable. - recent CABG 03/2024. Continue asa plavix and atorvastatin at home dosing. - unclear if still need for amiodarone. 4. HTN, present on admission and stable. - as above, hold amlodipine. Accepting a degree of hypertension. 5. R foot numbness likely sciatic nerve or diabetic neuropathy (less likely), present on admission and active. - benign exam, good strength, MRI negative for CVA. Patient reports waxing and waning symptoms, does seem to occur with R sided sciatic pain. He also has diabetic neuropathy. - continue PT/OT for sciatica as outpatient. No need for further evaluation at this time. symptoms not consistent with CVA. No back pain or urinary / fecal incontinence. - not a limiting issue Code: Full, surrogate is patient's spouse DVT: Lovenox daily NAYE: 07/19 if improved symptoms with orthostasis. Time-Based Coding :: 20 min spent with patient and on the chart (including review of chart, obtaining history, exam, reviewing outside data, placing orders, documenting exam and treatment plan, and counseling patient) on 07/18.
--- NOTE | 2024-07-18 13:41 | CM.DPC ---
DCP Cont. Reviewed EMR and team rounds for status updates. Pt remains orthostatic, Hospitalist is trying a new med today and increasing fluids in efforts to resolve this. Will continue to monitor.
[2024-07-18 16:00] VITALS: BP 108/57; BP 124/64; BP 152/79; PULSE 70; PULSE 72; RESP 16; TEMP 36.6; O2SAT 96
[2024-07-18 20:00] VITALS: BP 128/67; BP 165/77; BP 180/80; PULSE 69; PULSE 95; TEMP 36.4; O2SAT 99
[2024-07-18] MEDS: ATORVASTATIN 20 MG TABLET PO (20:40)
[2024-07-18] MEDS: INSULIN NPH 100 UNIT/ML 10ML VIAL 10 UNIT SUBCUT (20:42)
[2024-07-19] VITALS: BP 130/61; PULSE 69; RESP 18; TEMP 36.4; O2SAT 98
[2024-07-19] MEDS: ACETAMINOPHEN 325 MG TABLET 650 MG PO ×2 (03:24→12:28)
[2024-07-19 03:25] VITALS: BP 125/62; PULSE 56; RESP 18; TEMP 36.9; O2SAT 99
[2024-07-19] MEDS: MIDODRINE HCL 5 MG TABLET 10 MG PO ×2 (06:38→12:28)
[2024-07-19 07:00] VITALS: BP 126/61; BP 158/77; BP 89/53; PULSE 67; PULSE 72
[2024-07-19 07:40] VITALS: BP 158/77; PULSE 72; RESP 17; TEMP 36.4; O2SAT 99
[2024-07-19] MEDS: ENOXAPARIN 40 MG/0.4 ML SYRINGE SUBCUT (08:27)
[2024-07-19] MEDS: FLUDROCORTISONE 0.1 MG TABLET PO (08:28)
[2024-07-19] MEDS: ASPIRIN EC 81 MG TABLET PO (08:28)
[2024-07-19] MEDS: CLOPIDOGREL 75 MG TABLET PO (08:28)
[2024-07-19] MEDS: SODIUM CHLORIDE 0.9% FLUSH 10 ML IV (08:29)
[2024-07-19] MEDS: INSULIN NPH 100 UNIT/ML 10ML VIAL 10 UNIT SUBCUT (08:29)
--- NOTE | 2024-07-19 08:50 | PT.IPTN ---
Current Diagnoses Type 2 diabetes mellitus without complications (07/14/24) Transient cerebral ischemic attack, unspecified (07/14/24) Essential (primary) hypertension (07/14/24) Physical Therapy Treatment Note M2 PT-IP Current Condition Start: 07/11/24 07:39 Freq: NEEDED Status: Active Protocol: Document 07/11/24 10:03 MB (Rec: 07/11/24 10:35 MB [id number]) Physical Therapy Current Condition Current Condition Evaluation Date 07/11/24 Treatment Diagnosis Light-headed, syncope M3 PT-IP Subjective Start: 07/11/24 07:39 Freq: NEEDED Status: Active Protocol: Document 07/19/24 09:02 TS (Rec: 07/19/24 09:08 TS [id number]) Subjective Physical Therapy Visit Type Type Treatment Note Visit Start Time 08:50 Visit Stop Time 09:02 Number of STUDIO ASSOCIATE Visits 3 Physical Therapy Visit Comments Patient Comments Pt found resting in chair, he is agreeable to PT. M4 PT-IP Mobility and Gait Start: 07/11/24 07:39 Freq: NEEDED Status: Active Protocol: Document 07/19/24 09:02 TS (Rec: 07/19/24 09:08 TS [id number]) PT-Transfer Assessment Sit to and From Stand Sit to and from Stand Standby Assistance Equipment Transfer Assistive Device Gait Belt,Front Wheeled Walker Orthotic/Prosthetic Devices or Brace: No Comments Mobility Comments Bp in sitting 126/61, pt has no lightheadedness. STS with FWW SBA with BUE's pushing from arms of the chair, pt is slow to stand. BP in standing 83/49, pt requested to sit down due to lightheadedness. Abdominal binder don while in sitting. BP in sitting 126/66. Pt agreed to stand again, BP in standing 89/53. Pt declined ambulation, was left back in the chair. PT-Balance Assessment Sitting Balance and Reactions Static Sitting Balance Ability Normal Dynamic Sitting Balance Ability Good Standing Balance and Reactions Static Standing Balance Ability Good Dynamic Standing Balance Ability Fair Device Used FWW M5 PT-IP Objective Assessments Start: 07/11/24 07:39 Freq: NEEDED Status: Active Protocol: Document 07/11/24 10:03 MB (Rec: 07/11/24 10:35 MB [id number]) Orientation Orientation/Cognition Level of Alertness Alert Orientation Name,Age,Birthday,Month,Date, Year,Place,Situation Language Function Ability No Deficits Noted Safety Awareness Decreased Safety Awareness Comments Pt and girlfriend provide slightly different history of events and they do agree that light-headedness and passing out have been recent issues at home and started prior to open heart surgery in March Gross Range of Motion Upper Extremity ROM Impairments Defer to OT Lower Extremity ROM Assessment Within Functional Limits Strength Lower Extremity Strength Assessment Within Functional Limits Hip 5/5 B hip flexion Knee 5/5 B knee extension Ankle 5/5 B ankle DF and great toe extension Coordination Assessment Gross Coordination Gross Coordination Impaired Assessment Finger to Nose Test Moderate Impairment Heel on Adams Test Moderate Impairment Coordination Comments LUE worse than right UE with finger to nose and all coordination testing is very slow Sensation Assessment Comments Sensation Comments MRI transport arrived and PT does not have time to assess Muscle Tone Muscle Tone WNL Yes M6 PT-IP Treatment Start: 07/11/24 07:39 Freq: NEEDED Status: Active Protocol: Document 07/19/24 09:02 TS (Rec: 07/19/24 09:08 [id number]) Physical Therapy Treatment Education Education Provided Safety M7 PT-IP Assessment and Plan Start: 07/11/24 07:39 Freq: NEEDED Status: Active Protocol: Document 07/19/24 09:02 TS (Rec: 07/19/24 09:08 [id number]) PT Summary Assessment and Plan Potential Rehabilitation Potential Fair Summary Impairments Strength,Balance,Bed Mobility, Transfers,Gait,Activity Tolerance Progress Towards Goals Slow Progress due to Medical Issues Assessment Summary Yonny continues to make slow progress with his mobility. He is SBA for STS with FWW. He did not ambulate this session due to continued hypotension. PT continues to recommend home with assist. Goals Bed Mobility Goal Independent Transfer Goal Independent,Cane,Front Wheeled Walker Gait Goal Independent,Cane,Front Wheel Walker Gait Distance 100 Other Goals Pt will ascend and descend one platform step with LRAD and no more than CGA to allow safe home entry. Days to Meet Goals 5 Frequency of Treatment Frequency Of Treatment Once a Day Treatment Plan Physical Therapy Treatment Plan Bed Mobility Training,Transfer Training,Gait Training, Therapeutic Exercise,Balance Retraining,Discharge Planning, Hot or Cold Pack,Neuromuscular Re-ed,Coordination Retraining ,Manual Therapy Precautions Brace SARATH hose; abdominal binder Other Precautions othostatic hypotension Weight Bearing Status Weight Bearing Status Weight Bear as Tolerated Recommendations To Nursing Amount of Assist Needed Standby Assistance Discharge Recommendations PT Discharge Recommendations Home with Assistance Transportation Needs at Discharge Private Vehicle
--- NOTE | 2024-07-19 10:42 | DIET.CONS ---
Dietary Consultation Note Admission Date: 07/14/2024 13:19 Assessment: 64 y M admitted for suspected TIA/CVA, found to have orthostatic hypotension. PMH DM 2 and CABG 04/05. Nutrition screened for LOS. EMR reviewed. BG to 113 this morning. 177-258 on 07/18. 100% recorded po intakes. DFM reviewed for meal composition. Will monitor po intakes and BG. Ht: 165.1 cm Wt: 62.5 kg BMI: 22.9 UBW: 65.771 kg on 04/06/24 (-5% weight loss in 3 months, non-severe) Last BM: 07/18/24 (07/18/24 18:00) MNA: 13 Arslan Score: 21 Diet: 07/11/24 Breakfast Carbohydrate Consistent Diet Diet Modifications: Carbohydrate level: Medium (3 CHO) Reflex DM orders: No Nutrition Percent Meal Consumed 100% 07/18/24 18:00 Percent Meal Consumed 100% 07/18/24 13:16 Percent Meal Consumed 100% 07/17/24 17:50 Percent Meal Consumed 100% 07/17/24 14:06 Labs: RBC 4.34 X10^6/uL (4.5-5.9) L 07/18/24 10:55 Hgb 11.8 g/dL (13.5-17.5) L 07/18/24 10:55 Hct 36.2 % (41-53) L 07/18/24 10:55 Creatinine 0.74 mg/dL (0.66-1.25) 07/18/24 10:55 Electronically Signed by: Solange Mosquera 07/19/24 10:42 Clinical Dietitian [address] [address]
[2024-07-19] MEDS: INSULIN LISPRO 100 UNIT/ML 3ML VIAL SUBCUT (11:36)
[2024-07-19 12:00] VITALS: BP 147/74; PULSE 68; RESP 17; TEMP 36.1; O2SAT 100
--- NOTE | 2024-07-19 12:05 | CM.DPC ---
Addendum entered by FIONA Rooney 07/19/24 13:22: DCP Update: DCP called [facility] to follow up on referral for pt, it was reported that pt's referral has been denied due to pt's [employer] insurance. DCP called [facility], left a voice message and inquiring about acceptance of pt's insurance. F2F completed, scanned into chart. HH orders placed, pending accepting agency. KATIUSKA Cazares Original Note: DCP Continued: Reviewed EMR and team rounds for pt?s medical status. Per RN and hospitalist, pt to have one more day of admission due to orthostatic hypertension with focus on more ambulation to build endurance. No new discharge needs identified at this time. Plan: Anticipating discharge home with partner when medically stable. CM Team will continue to follow for coordination of discharge plans. KATIUSKA Cazares
--- NOTE | 2024-07-19 12:32 | PM.PN.1 ---
Subjective Subjective Interval history: Admitted with persistent orthostatic hypotension likely related to his diabetes. He has been started on midodrine 10 mg t.i.d. and fludrocortisone 0.2 mg starting July 18. He was currently on maximum dosing and having slow improvement of orthostasis. Subjective: He remained somewhat orthostatic and dizzy with positional changes. He would like to increase his ambulation today to see how his blood pressure progresses. 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 He was going to the bathroom without difficulty, he denies any other concerns. Exam Vital Signs (past 8 hours): - 07/19/24 07:00 07/19/24 07:00 07/19/24 07:40 Temperature 97.6 F Pulse Rate 72 Pulse Rate [Orthostatic Lying] 72 Pulse Rate [Orthostatic Sitting] 67 Pulse Rate [Orthostatic Standing] 72 Respiratory Rate 17 Blood Pressure 158/77 H Blood Pressure [Orthostatic Lying] 158/77 H Blood Pressure [Orthostatic Sitting] 126/61 Blood Pressure [Orthostatic Standing] 89/53 L Pulse Oximetry 99 Oxygen Delivery Method Room Air 07/19/24 12:00 Temperature 97.0 F L Pulse Rate 68 Pulse Rate [Orthostatic Lying] Pulse Rate [Orthostatic Sitting] Pulse Rate [Orthostatic Standing] Respiratory Rate 17 Blood Pressure 147/74 H Blood Pressure [Orthostatic Lying] Blood Pressure [Orthostatic Sitting] Blood Pressure [Orthostatic Standing] Pulse Oximetry 100 Oxygen Delivery Method Oxygen Delivery Method Room Air Oxygen Flow Rate 0 Narrative Exam Narrative: NAD, alert and oriented. Fluent speech. Underweight and somewhat chronically ill in appearance. Lungs are clear, normal rate and effort. Heart is regular, no murmur gallop or rub. Abdomen is soft, non distended. Extremities are free of edema. Objective Labs 07/18/24 10:55 07/18/24 10:55 [facility], [facility] Medical History HTN (hypertension) Diabetes Coronary artery disease Social History household members: significant other Smoking Status: Never smoker Assessment & Plan Assessment & Plan narrative: 1. Orthostatic hypotension, present on admission and improving. - symptoms are most likely related to orthostatic hypotension of diabetes. - continue to hold home amlodipine, accepting a higher resting blood pressure is part of improving his orthostasis. -increased midodrine dose to 10 mg q.i.d. and apply abdominal binder with compression stockings when out of bed. Added fludrocortisone given persistent fall in BPs. BID (now max recommended dosing). 2. DM 2 with hyperglycemia, present on admission and improving. - continue home medication of NPH BID. May need to switch therapies depending on glucose and how much sliding scale is needed. Hold home glipizide-metformin combo. 3. CAD, present on admission and stable. - recent CABG 03/2024. Continue asa plavix and atorvastatin at home dosing. - unclear if still need for amiodarone. 4. HTN, present on admission and stable. - as above, hold amlodipine. Accepting a degree of hypertension. 5. R foot numbness likely sciatic nerve or diabetic neuropathy (less likely), present on admission and active. - benign exam, good strength, MRI negative for CVA. Patient reports waxing and waning symptoms, does seem to occur with R sided sciatic pain. He also has diabetic neuropathy. - continue PT/OT for sciatica as outpatient. No need for further evaluation at this time. symptoms not consistent with CVA. No back pain or urinary / fecal incontinence. - not a limiting issue PLAN: -continue midodrine and fludrocortisone current dosing. -increase ambulation and out of bed with sitting in chair today. -continue with abdominal course set. -monitor his progression and orthostasis. Code: Full, surrogate is patient's spouse DVT prophylaxis: Lovenox daily NAYE: 07/20 if BP improves. Time-Based Coding :: 25 min spent with patient and on the chart (including review of chart, obtaining history, exam, reviewing outside data, placing orders, documenting exam and treatment plan, and counseling patient) on 07/19.
[2024-07-19 16:00] VITALS: BP 150/73; BP 174/77; PULSE 71; PULSE 74; RESP 17; TEMP 36.1; O2SAT 96
--- NOTE | 2024-07-19 16:41 | CM.DPNOTE ---
DCP Update: At approximately 4:00pm, family asked to speak with DCP. DCP met with son, Dinh and his . Son reported that girlfriend, Magnolia, stated it will not be a safe discharge to her house with pt?s condition. Per son, pt's girlfriend is disabled and requires a caregiver 2-3x/week and does not feel safe with pt discharging to her house even with HH care. Pt's son reports that all of pt's children are not available to assist with care as well. Per son, pt owns a travel trailer parked on a property in [place] which is condemned and not habitable. DCP discussed private caregivers, pt's son explained pt does not have finances for a 05/06 caregiver or rehab. Pt son states that sister/pt's DPOA and girlfriend are all requesting to pivot plan to SNF Rehab. [facility] provided Medicaid application as it was reported pt might be losing insurance at the end of the month due to [place] ending. Hospitalist and RN notified. Plan: No safe discharge home at this time, pt still pending medical clearance to discharge due to orthostatics. Requesting to reconvene with therapies for possible SNF referral. CM Team following for discharge plan recommendations. KATIUSKA Cazares
--- NOTE | 2024-07-19 17:37 | P.DS_ITS ---
History of Present Illness History of Present Illness Chief complaint: thinks he had a stroke Narrative: From H&P: This is a 64 year old male with PMH of HTN, DM, CAD (cabg in 03/2024) who went to sleep on 07/10 around 8-9 pm after he watched TV with his girlfriend, woke up early this AM to ago to go to bathroom and was dizzy, with impaired balance and acted confused. He had difficulty speaking as well. ED workup with non-revealing CTH and CTA of head and neck. Stable vital signs. Placed in observation with TIA/CVA. Interval history: Patient's MRI and Echo are unremarkable. He reports ongoing symptoms like this, to a much lesser extent, more prominent in the morning ever since his heart procedure in March. Orthostatics were markedly positive. Home amlodipine held for now. Discharge Providers Provider Date of admission: 07/14/24 13:19 Discharge Date: 07/19/24 Consults: 07/11/24 04:48 Consult to Occupational Therapy Evaluate & Treat Comment: Physician Instructions: Evaluate and treat Consult to Physical Therapy Evaluate & Treat Comment: Physician Instructions: Evaluate and Treat Consult to Speech Therapy Evaluate & Treat Comment: Physician Instructions: Evaluate and treat 07/19/24 13:25 Consult to Home Health Routine Comment: RN, PT, HH Aide Reason For Exam: Diabetes, CAD, HTN, TIA Discharge provider: Jose Rubin MD Summary Hospital Course Discharge Diagnosis: 1. Orthostatic hypotension, present on admission and improving. - symptoms are most likely related to orthostatic hypotension of diabetes. - continue to hold home amlodipine, accepting a higher resting blood pressure is part of improving his orthostasis. -increased midodrine dose to 10 mg q.i.d. and apply abdominal binder with compression stockings when out of bed. Added fludrocortisone given persistent fall in BPs. BID (now max recommended dosing). 2. DM 2 with hyperglycemia, present on admission and improving. - continue home medication of NPH BID. May need to switch therapies depending on glucose and how much sliding scale is needed. Hold home glipizide-metformin combo. 3. CAD, present on admission and stable. - recent CABG 03/2024. Continue asa plavix and atorvastatin at home dosing. 4. HTN, present on admission and stable. - as above, hold amlodipine. Accepting a degree of hypertension. 5. R foot numbness likely sciatic nerve or diabetic neuropathy (less likely), present on admission and active. - benign exam, good strength, MRI negative for CVA. Patient reports waxing and waning symptoms, does seem to occur with R sided sciatic pain. He also has diabetic neuropathy. 6. AMA Discharge. Hospital Course: This patient was admitted with orthostatic hypotension. His blood pressure medications were held and he was started on midodrine. His doses were escalated. He has still had residual persistent orthostatic hypotension. Florinef was added. The patient was making slow improvement but was still dizzy and somewhat orthostatic over the last 2 days of his admission. His girlfriend abruptly stated that he would not be able to come back to her home and this ended up upsetting him. Ultimately later that day he elected to leave the hospital against medical advice. Multiple family members were visiting that day, it was unclear to staff if there were any offers to take care of the patient. The patient did leave the hospital against medical advice. Status at Discharge Cognitive/behavioral status at discharge: oriented Functional status at discharge: uses cane/walker Overall status at discharge: patient is progressing back to baseline Time Spent with Patient Time spent: Greater than 30 minutes Exam Vital Signs (past 8 hours): - 07/19/24 12:00 07/19/24 16:00 07/19/24 16:00 Temperature 97.0 F L 97.0 F L Pulse Rate 68 74 Pulse Rate [Orthostatic Lying] 71 Pulse Rate [Orthostatic Sitting] 74 Pulse Rate [Orthostatic Standing] 74 Respiratory Rate 17 17 Blood Pressure 147/74 H 150/73 H Blood Pressure [Orthostatic Lying] 174/77 H Blood Pressure [Orthostatic Sitting] 150/73 H Blood Pressure [Orthostatic Standing] 174/77 H Pulse Oximetry 100 96 Oxygen Delivery Method Room Air Oxygen Flow Rate 0 Narrative Exam Narrative: See exam from progress note. Objective ECG Impression: Normal sinus rhythm Nonspecific T wave abnormality Imaging Multiple studies:: Radiologist's impression: Echo: The ejection fraction is estimated to be 55-60%. Diastolic parameters suggest probable normal left ventricular diastolic function and normal filling pressures. The right ventricle is normal in size and function. There is mild mitral regurgitation. Pulmonary artery pressures cannot be estimated because of the lack of a measurable TR jet velocity but the IVC suggests a CVP of around 3 mmHg. Doppler interrogation and injection of saline echo contrast shows no evidence for an interatrial shunt. Brain MRI: No acute intracranial disease process. No acute or chronic infarct. No intracranial hemorrhage or abnormal intracranial mass. Head and neck CTA: No significant intracranial arterial abnormality is seen. No significant abnormality is seen within the arteries of the neck. Head CT: No acute intracranial pathology. Labs 07/18/24 10:55 07/18/24 10:55 [facility] Medical History HTN (hypertension) Diabetes Coronary artery disease Social History household members: significant other Smoking Status: Never smoker Discharge Assessment & Plan Assessment and Plan Assessment: 1. AMA Discharge. 2. Orthostatic hypotension, presumed from diabetic neuropathy. Present on admission and improving. Plan of Treatment: Patient left the hospital against medical advice. Discharge Plan Discharge Plan Patient Disposition: Left Against Medical Advice Provider Discharge Comment: Left AMA. Discharge orders & Medications Prescriptions: Continued atorvastatin 20 mg tablet 20 mg PO BEDTIME amiodarone 200 mg tablet 200 mg PO DAILY clopidogrel 75 mg tablet 75 mg PO DAILY midodrine 10 mg tablet 10 mg PO TID 30 Days Qty: 90 0RF Rx Instructions: do not give last dose of day after 6PM or within 4 hrs of bedtime fludrocortisone 0.1 mg tablet 0.2 mg PO DAILY 30 Days Qty: 60 0RF hydrocodone-acetaminophen 5-325 mg tablet 1 tab PO Q6H PRN (Reason: pain) aspirin 81 mg tablet,delayed release (DR/EC) 81 mg PO DAILY trazodone 100 mg tablet 100 mg PO ONCE PM PRN (Reason: insomnia) gabapentin 300 mg capsule 600 mg PO BEDTIME PRN (Reason: Pain, Moderate) Rx Instructions: Pt reports he takes 3 tabs PRN nightly glipizide-metformin 5-500 mg tablet 2 tab PO BIDAC Humulin N NPH Insulin KwikPen 100 unit/mL (3 mL) insulin pen 5 unit SUBCUT BID Discontinued amlodipine 2.5 mg tablet 2.5 mg PO DAILY Visit Report/Discharge Packet Instructions: DI for Syncope in Adults (Fainting), DI for Orthostatic Hypotension, How to Prevent Falls, Fludrocortisone Acetate, Midodrine Stand Alone Forms: Patient Portal/API, Stroke Signs & Symptoms
== END 2024-07-19 18:10 | disposition left against medical advice (07) | DRG 74 ==
LOC: ED 07-11 02:14 → AC 07-11 02:15
PROVIDERS: Hospitalist; Internal Medicine; Admitting Provider Internal Medicine; Emergency Provider Emergency Medicine; Visit Provider Internal Medicine
DX: E11.40 Type 2 diabetes mellitus with diabetic neuropathy, unspecified (principal); I95.1 Orthostatic hypotension; I10 Essential (primary) hypertension; I25.10 Atherosclerotic heart disease of native coronary artery without angina pectoris; E11.65 Type 2 diabetes mellitus with hyperglycemia; Z53.29 Procedure and treatment not carried out because of patient's decision for other reasons; Z79.84 Long term (current) use of oral hypoglycemic drugs; Z95.1 Presence of aortocoronary bypass graft; Z79.4 Long term (current) use of insulin
CPT/HCPCS: 36415; 70450; 70496; 70498; 70551; 80048; 80053; 80061; 80320; 82550; 82962; 83690; 84484; 85025; 85027; 85610; 85730; 92507; 92523; 93005; 93010; 93306; 97116; 97162; 97166; 97530; 97535; 99284; G0378; J1650; J1815; Q9967

== ENCOUNTER 2024-07-21 11:00 | Emergency (ER) | payer OTHER, SELFPAY ==
[2024-07-11 02:31] VITALS: BMI 22.9
[2024-07-21] VITALS (13 sets, daily range): BP systolic 118–187; BP diastolic 65–90; PULSE 69–79; RESP 12–25; TEMP 36.7; O2SAT 97–100; BMI 21.2
--- NOTE | 2024-07-21 11:24 | ED.GENADULT ---
HPI - General Adult General Chief complaint: Hypertension Stated complaint: Needs Meds to increase blood pressure Time Seen by Provider: 07/21/24 11:07 Source: patient and family Mode of arrival: Ambulatory Related Data Home Medications Medication Instructions Recorded Confirmed aspirin 81 mg tablet,delayed 81 mg PO DAILY 04/06/24 07/11/24 release gabapentin 300 mg capsule 600 mg PO BEDTIME PRN Pain, 04/06/24 07/11/24 Moderate glipizide 5 mg-metformin 500 mg 2 tab PO BIDAC 04/06/24 07/11/24 tablet hydrocodone 5 mg-acetaminophen 325 1 tab PO Q6H PRN pain 04/06/24 07/11/24 mg tablet insulin NPH isoph U-100 human 100 5 unit SUBCUT BID 04/06/24 07/11/24 unit/mL (3 mL) subcutaneous pen (Humulin N NPH U-100 Insulin KwikPen) trazodone 100 mg tablet 100 mg PO ONCE PM PRN insomnia 04/06/24 07/11/24 amiodarone 200 mg tablet 200 mg PO DAILY 07/11/24 07/11/24 amlodipine 2.5 mg tablet 2.5 mg PO DAILY 07/11/24 07/11/24 atorvastatin 20 mg tablet 20 mg PO BEDTIME 07/11/24 07/11/24 clopidogrel 75 mg tablet 75 mg PO DAILY 07/11/24 07/11/24 Allergies Allergy/AdvReac Type Severity Reaction Status Date / Time No Known Drug Allergies Allergy Verified 07/21/24 11:23 Patient History Medical History HTN (hypertension) Diabetes Coronary artery disease Social History household members: significant other Smoking Status: Never smoker Smoking Status: Never smoker alcohol intake frequency: holidays/special occasions only Substance Use Type: does not use Exam Initial Vital Signs Initial Vital Signs: Vital Signs Temperature 98.0 F 07/21/24 11:05 Pulse Rate 76 07/21/24 11:05 Respiratory Rate 12 07/21/24 11:05 Blood Pressure 186/79 H 07/21/24 11:05 Pulse Oximetry 100 07/21/24 11:05 Oxygen Delivery Method Room Air 07/21/24 11:05 Course Vital Signs Vital signs: Vital Signs - 8 hr 07/21/24 11:05 Temperature 98.0 F Pulse Rate 76 Respiratory Rate 12 Blood Pressure 186/79 H Pulse Oximetry 100 Oxygen Delivery Method Room Air Discharge Plan Departure Prescriptions: No Action atorvastatin 20 mg tablet 20 mg PO BEDTIME amiodarone 200 mg tablet 200 mg PO DAILY amlodipine 2.5 mg tablet 2.5 mg PO DAILY clopidogrel 75 mg tablet 75 mg PO DAILY hydrocodone-acetaminophen 5-325 mg tablet 1 tab PO Q6H PRN (Reason: pain) aspirin 81 mg tablet,delayed release (DR/EC) 81 mg PO DAILY trazodone 100 mg tablet 100 mg PO ONCE PM PRN (Reason: insomnia) gabapentin 300 mg capsule 600 mg PO BEDTIME PRN (Reason: Pain, Moderate) Rx Instructions: Pt reports he takes 3 tabs PRN nightly glipizide-metformin 5-500 mg tablet 2 tab PO BIDAC Humulin N NPH Insulin KwikPen 100 unit/mL (3 mL) insulin pen 5 unit SUBCUT BID Referrals: Esther Sheridan MD [Primary Care Provider] -
--- NOTE | 2024-07-21 12:43 | ED.GENADULT ---
HPI - General Adult <Hayes DurbinKRISS - Last Filed: 07/21/24 13:10> General Chief complaint: Hypertension Stated complaint: Needs Meds to increase blood pressure Time Seen by Provider: 07/21/24 11:07 Source: patient and family Mode of arrival: Ambulatory History of Present Illness HPI narrative: Patient is a 64-year-old male. History of insulin-dependent diabetes, coronary artery disease. Had a three-vessel coronary artery bypass graph earlier this year. Patient was evaluated in the emergency room on July 10 for possible TIA with a resultant admission. Patient left Against Medical Advice from being admitted secondary to his children upsetting him about discussing moving to an assisted living facility. During patient's admission, he was suffering from postural hypotension with multiple changes in medications to stabilize this. When patient left, medications he was supposed to be taking did not get prescribed and patient now presents to the emergency department for those medications. Patient reports that he had an episode of feeling like he was going to pass out yesterday after his children, once again, upset him. Patient is here with his . Related Data Home Medications Medication Instructions Recorded Confirmed aspirin 81 mg tablet,delayed 81 mg PO DAILY 04/06/24 07/11/24 release gabapentin 300 mg capsule 600 mg PO BEDTIME PRN Pain, 04/06/24 07/11/24 Moderate glipizide 5 mg-metformin 500 mg 2 tab PO BIDAC 04/06/24 07/11/24 tablet hydrocodone 5 mg-acetaminophen 325 1 tab PO Q6H PRN pain 04/06/24 07/11/24 mg tablet insulin NPH isoph U-100 human 100 5 unit SUBCUT BID 04/06/24 07/11/24 unit/mL (3 mL) subcutaneous pen (Humulin N NPH U-100 Insulin KwikPen) trazodone 100 mg tablet 100 mg PO ONCE PM PRN insomnia 04/06/24 07/11/24 amiodarone 200 mg tablet 200 mg PO DAILY 07/11/24 07/11/24 amlodipine 2.5 mg tablet 2.5 mg PO DAILY 07/11/24 07/11/24 atorvastatin 20 mg tablet 20 mg PO BEDTIME 07/11/24 07/11/24 clopidogrel 75 mg tablet 75 mg PO DAILY 07/11/24 07/11/24 Previous Rx's Medication Instructions Recorded fludrocortisone 0.1 mg tablet 0.2 mg (2 x 0.1 mg) PO DAILY 30 07/21/24 days #60 tabs midodrine 10 mg tablet 10 mg PO TID 30 days #90 tabs 07/21/24 Allergies Allergy/AdvReac Type Severity Reaction Status Date / Time No Known Drug Allergies Allergy Verified 07/21/24 11:23 Review of Systems <KRISS Arndt - Last Filed: 07/21/24 13:10> Review of Systems Narrative: Narrative: See HPI. GENERAL: Denies chills, fatigue, fever, sweats. HEENT: Denies sinus pain, ear pain, sore throat, difficulty swallowing, dizziness. RESPIRATORY: Denies dyspnea, cough, wheezing, sputum. CARDIOVASCULAR: Denies chest pain, palpitations, edema. GASTROINTESTINAL: Denies nausea, vomiting, abdominal pain, diarrhea, constipation. : Denies dysuria, frequency, incontinence, hematuria, urinary retention, flank pain. MSK: Denies weakness, joint pain, or bony pain. SKIN: Denies rash, skin lesions, or pruritis. NEUROLOGIC: Denies current weakness, dizziness, headache, numbness, confusion. PSYCHIATRIC: No concerning psychosocial issues. Patient History <KRISS Arndt - Last Filed: 07/21/24 13:10> Medical History HTN (hypertension) Diabetes Coronary artery disease Social History household members: significant other Smoking Status: Never smoker Smoking Status: Never smoker alcohol intake frequency: holidays/special occasions only Substance Use Type: does not use Exam <KRISS Arndt - Last Filed: 07/21/24 13:10> Narrative Exam Narrative: Exam Narrative: GENERAL: This is a well-nourished, well-developed patient, in no acute distress. HEAD: Atraumatic. Normocephalic. EYES: Pupils equal round and reactive. No scleral icterus, injection or drainage. ENT: Nose without bleeding, purulent drainage. Airway patent. NECK: Trachea midline. No JVD. CARDIOVASCULAR: Regular rate and rhythm without murmurs, peripheral pulses intact, cap refill <2 sec. RESPIRATORY: Breath sounds equal and clear bilaterally. No wheezes, rales, or rhonchi. No cough. No increased respiratory effort. No accessory muscle use. GASTROINTESTINAL: Abdomen soft, non-tender, nondistended without guarding or rebound. No suprapubic pain. MSK: Moves all extremities. Normal range of motion, no clubbing or edema. Neurovascularly intact. NEURO: A&O x 3. SKIN: Warm, dry, no rashes or lesions noted. Initial Vital Signs Initial Vital Signs: Vital Signs Temperature 98.0 F 07/21/24 11:05 Pulse Rate 76 07/21/24 11:05 Respiratory Rate 12 07/21/24 11:05 Blood Pressure 186/79 H 07/21/24 11:05 Pulse Oximetry 100 07/21/24 11:05 Oxygen Delivery Method Room Air 07/21/24 11:05 Reviewed <Jarek Gilman MD - Last Filed: 07/21/24 22:08> Initial Vital Signs Initial Vital Signs: Vital Signs Temperature 98.0 F 07/21/24 11:05 Pulse Rate 76 07/21/24 11:05 Respiratory Rate 12 07/21/24 11:05 Blood Pressure 186/79 H 07/21/24 11:05 Pulse Oximetry 100 07/21/24 11:05 Oxygen Delivery Method Room Air 07/21/24 11:05 Course <KRISS Arndt - Last Filed: 07/21/24 13:10> Orders Ordered: Discontinued Medications Sodium Chloride (Normal Saline 0.9%) 500 mls @ 1,000 mls/hr IV BOLUS ONE Stop: 07/21/24 13:19 Last Infusion: 07/21/24 13:23 Dose: Infused Documented By: Admin: 07/21/24 12:57 Dose: 1,000 mls/hr Documented By: SPF Consultations Consultation #1: Dr. Sneed, Hospitalist. He will prescribe the discharge medications Midodrine and Fludrocort with instructions to hold the home amlodipine. Vital Signs Vital signs: Vital Signs - 8 hr 07/21/24 11:05 07/21/24 11:14 07/21/24 11:15 Temperature 98.0 F Pulse Rate 76 75 75 Pulse Rate [Orthostatic Lying] Pulse Rate [Orthostatic Sitting] Pulse Rate [Orthostatic Standing] Respiratory Rate 12 12 Blood Pressure 186/79 H Blood Pressure [Orthostatic Lying] Blood Pressure [Orthostatic Sitting] Blood Pressure [Orthostatic Standing] Pulse Oximetry 100 100 100 Oxygen Delivery Method Room Air 07/21/24 11:15 07/21/24 11:30 07/21/24 11:30 Temperature Pulse Rate 71 Pulse Rate [Orthostatic Lying] Pulse Rate [Orthostatic Sitting] Pulse Rate [Orthostatic Standing] Respiratory Rate 14 Blood Pressure 183/84 H 166/77 H Blood Pressure [Orthostatic Lying] Blood Pressure [Orthostatic Sitting] Blood Pressure [Orthostatic Standing] Pulse Oximetry 99 Oxygen Delivery Method Room Air 07/21/24 12:00 07/21/24 12:00 07/21/24 12:11 Temperature Pulse Rate 69 Pulse Rate [Orthostatic Lying] Pulse Rate [Orthostatic Sitting] Pulse Rate [Orthostatic Standing] Respiratory Rate 14 Blood Pressure 175/82 H 187/90 H Blood Pressure [Orthostatic Lying] Blood Pressure [Orthostatic Sitting] Blood Pressure [Orthostatic Standing] Pulse Oximetry 100 Oxygen Delivery Method 07/21/24 12:11 07/21/24 12:12 07/21/24 12:12 Temperature Pulse Rate 72 74 Pulse Rate [Orthostatic Lying] Pulse Rate [Orthostatic Sitting] Pulse Rate [Orthostatic Standing] Respiratory Rate 25 H 12 Blood Pressure 180/88 H Blood Pressure [Orthostatic Lying] Blood Pressure [Orthostatic Sitting] Blood Pressure [Orthostatic Standing] Pulse Oximetry 100 100 Oxygen Delivery Method 07/21/24 12:14 07/21/24 12:14 07/21/24 12:19 Temperature Pulse Rate 76 Pulse Rate [Orthostatic Lying] 71 Pulse Rate [Orthostatic Sitting] 73 Pulse Rate [Orthostatic Standing] 79 Respiratory Rate 25 H Blood Pressure 118/65 Blood Pressure [Orthostatic Lying] 187/90 H Blood Pressure [Orthostatic Sitting] 180/88 H Blood Pressure [Orthostatic Standing] 118/65 Pulse Oximetry 100 Oxygen Delivery Method Room Air 07/21/24 12:30 07/21/24 12:31 07/21/24 12:31 Temperature Pulse Rate 72 72 Pulse Rate [Orthostatic Lying] Pulse Rate [Orthostatic Sitting] Pulse Rate [Orthostatic Standing] Respiratory Rate 16 15 Blood Pressure 186/86 H Blood Pressure [Orthostatic Lying] Blood Pressure [Orthostatic Sitting] Blood Pressure [Orthostatic Standing] Pulse Oximetry 99 99 Oxygen Delivery Method Room Air <Jarek Gilman MD - Last Filed: 07/21/24 22:08> Orders Ordered: Discontinued Medications Sodium Chloride (Normal Saline 0.9%) 500 mls @ 1,000 mls/hr IV BOLUS ONE Stop: 07/21/24 13:19 Last Infusion: 07/21/24 13:23 Dose: Infused Documented By: Admin: 07/21/24 12:57 Dose: 1,000 mls/hr Documented By: ELOISE Vital Signs Vital signs: Vital Signs - 8 hr 07/21/24 11:05 07/21/24 11:14 07/21/24 11:15 Temperature 98.0 F Pulse Rate 76 75 75 Pulse Rate [Orthostatic Lying] Pulse Rate [Orthostatic Sitting] Pulse Rate [Orthostatic Standing] Respiratory Rate 12 12 Blood Pressure 186/79 H Blood Pressure [Orthostatic Lying] Blood Pressure [Orthostatic Sitting] Blood Pressure [Orthostatic Standing] Pulse Oximetry 100 100 100 Oxygen Delivery Method Room Air 07/21/24 11:15 07/21/24 11:30 07/21/24 11:30 Temperature Pulse Rate 71 Pulse Rate [Orthostatic Lying] Pulse Rate [Orthostatic Sitting] Pulse Rate [Orthostatic Standing] Respiratory Rate 14 Blood Pressure 183/84 H 166/77 H Blood Pressure [Orthostatic Lying] Blood Pressure [Orthostatic Sitting] Blood Pressure [Orthostatic Standing] Pulse Oximetry 99 Oxygen Delivery Method Room Air 07/21/24 12:00 07/21/24 12:00 07/21/24 12:11 Temperature Pulse Rate 69 Pulse Rate [Orthostatic Lying] Pulse Rate [Orthostatic Sitting] Pulse Rate [Orthostatic Standing] Respiratory Rate 14 Blood Pressure 175/82 H 187/90 H Blood Pressure [Orthostatic Lying] Blood Pressure [Orthostatic Sitting] Blood Pressure [Orthostatic Standing] Pulse Oximetry 100 Oxygen Delivery Method 07/21/24 12:11 07/21/24 12:12 07/21/24 12:12 Temperature Pulse Rate 72 74 Pulse Rate [Orthostatic Lying] Pulse Rate [Orthostatic Sitting] Pulse Rate [Orthostatic Standing] Respiratory Rate 25 H 12 Blood Pressure 180/88 H Blood Pressure [Orthostatic Lying] Blood Pressure [Orthostatic Sitting] Blood Pressure [Orthostatic Standing] Pulse Oximetry 100 100 Oxygen Delivery Method 07/21/24 12:14 07/21/24 12:14 07/21/24 12:19 Temperature Pulse Rate 76 Pulse Rate [Orthostatic Lying] 71 Pulse Rate [Orthostatic Sitting] 73 Pulse Rate [Orthostatic Standing] 79 Respiratory Rate 25 H Blood Pressure 118/65 Blood Pressure [Orthostatic Lying] 187/90 H Blood Pressure [Orthostatic Sitting] 180/88 H Blood Pressure [Orthostatic Standing] 118/65 Pulse Oximetry 100 Oxygen Delivery Method Room Air 07/21/24 12:30 07/21/24 12:31 07/21/24 12:31 Temperature Pulse Rate 72 72 Pulse Rate [Orthostatic Lying] Pulse Rate [Orthostatic Sitting] Pulse Rate [Orthostatic Standing] Respiratory Rate 16 15 Blood Pressure 186/86 H Blood Pressure [Orthostatic Lying] Blood Pressure [Orthostatic Sitting] Blood Pressure [Orthostatic Standing] Pulse Oximetry 99 99 Oxygen Delivery Method Room Air Medical Decision Making <KRISS Arndt - Last Filed: 07/21/24 13:10> Differential Diagnosis Differential Diagnosis: Postural hypotension MDM Narrative Medical decision making narrative: 64-year-old male that presents emergency department with persistent and intermediate postural hypotension. Patient was seen in the emergency department on July 10, admitted later that evening, and left Against Medical Advice from hospital admission [address] Sneed, the accepting physician, who then prescribe the discharge medications midodrine and fludrocort with instructions to stop the home amlodipine. Discussed with the patient the importance of making sure that he stays well hydrated, getting up slowly at all times to ensure that he has not dizzy before he begins to walk. 500 mL of NS given. Patient to be discharged home after picking up as medications from the [facility]. Discussed plan of care and return precautions with patient and spouse, who verbalized understanding and were agreeable with course of action. Discharge Plan Departure Patient Disposition: Home Clinical Impression: Postural hypotension Instructions: DI for High Blood Pressure Activity Restrictions/Additional Instructions: *You have been diagnosed with postural hypotension. I am glad that you came in as it is important for you to have the appropriate medications. I have spoken with Dr. Sneed, the admitting physician, who has prescribed the midodrine and fludrocort, that you were taking in the hospital before leaving Against Medical Advice. Additionally, you need to stop your home amlodipine until instructed by her doctor to begin. As we discussed, it is very important that you get up slowly, make sure there is no dizziness before he begin walking. Additionally, please make sure you are drinking plenty of water, at least 60 oz of water per day. For any worsening symptoms, please feel free to return to the emergency department. Otherwise, follow up with your cardiology or family doctor's as needed. *What to do: *Please continue to take your regular medications as directed. [x ] New medication prescriptions sent to your pharmacy: [[facility]] [ ] New medication written as a paper prescription [ ] No new medications given *Please follow up with your primary care provider in 2-3 days, call for an appointment. Let them know you were seen in the Emergency Department and that we ask that you be seen in follow up. We will electronically transmit a record of today's note if your PCP is in our system *If you do not have a primary care provider please contact the [facility] Resource line at [phone]. They will ask some questions about your medical history and help get you set up with a doctor in the community. ? Return to ER if you should have any new, worsening or concerning symptoms, such as worsening pain, severe headache, confusion, chest pain, difficulty breathing, fever greater than 101 F, shaking chills, persistent vomiting to the point that you cannot drink fluids, or other new or worsening symptoms. Prescriptions: New midodrine 10 mg tablet 10 mg PO TID 30 Days Qty: 90 0RF Rx Instructions: do not give last dose of day after 6PM or within 4 hrs of bedtime fludrocortisone 0.1 mg tablet 0.2 mg PO DAILY 30 Days Qty: 60 0RF Continued atorvastatin 20 mg tablet 20 mg PO BEDTIME amiodarone 200 mg tablet 200 mg PO DAILY amlodipine 2.5 mg tablet 2.5 mg PO DAILY clopidogrel 75 mg tablet 75 mg PO DAILY hydrocodone-acetaminophen 5-325 mg tablet 1 tab PO Q6H PRN (Reason: pain) aspirin 81 mg tablet,delayed release (DR/EC) 81 mg PO DAILY trazodone 100 mg tablet 100 mg PO ONCE PM PRN (Reason: insomnia) gabapentin 300 mg capsule 600 mg PO BEDTIME PRN (Reason: Pain, Moderate) Rx Instructions: Pt reports he takes 3 tabs PRN nightly glipizide-metformin 5-500 mg tablet 2 tab PO BIDAC Humulin N NPH Insulin KwikPen 100 unit/mL (3 mL) insulin pen 5 unit SUBCUT BID Referrals: Volsky,Esther, MD [Primary Care Provider] - Stand Alone Forms: Patient Portal/API ED Sign-out <Jarek Gilman MD - Last Filed: 07/21/24 22:08> Cosign ED Attending Cosignature Attestation: I was immediately available in the department for consultation. This documentation has been reviewed and I agree with assessment and plan. Supervised by Jarek Gilman MD
[2024-07-21] MEDS: SODIUM CHLORIDE 0.9% 500 ML 1000 ML IV (12:57)
== END 2024-07-21 13:23 | disposition home or self-care (01) ==
PROVIDERS: Emergency Provider Registered Nurse; PCP Family Medicine
DX: I95.1 Orthostatic hypotension (principal)
CPT/HCPCS: 99283

== ENCOUNTER → 2024-08-20 10:27 | Outpatient (CLI) | payer OTHER, SELFPAY ==
[2024-07-11 02:31] VITALS: BMI 22.9
[2024-08-20 12:26] LABS: BUN Creatinine Ratio 24.6 (6-22); Blood Urea Nitrogen 17 mg/dL (9-20); Calcium 9.8 mg/dL (8.4-10.2); Carbon Dioxide 34 mmol/L (22-32); Chloride 95 mmol/L (98-107); Estimated Glomerular Filt Rate > 60 mL/min (>60); Glucose 181 mg/dL (80-110); HEMOLYSIS < 15 (0-50); Potassium 3.3 mmol/L (3.4-5.1); Sodium 137 mmol/L (137-145)
== END ==
PROVIDERS: PCP Family Medicine; Referring Provider Nurse Practitioner; Visit Provider Nurse Practitioner
DX: E87.6 Hypokalemia (principal)
CPT/HCPCS: 36415; 80048

== ENCOUNTER 2025-05-18 16:34 | Emergency (ER) | payer OTHER, SELFPAY ==
[2024-07-11 02:31] VITALS: BMI 22.9
[2025-05-18] VITALS (19 sets, daily range): BP systolic 115–199; BP diastolic 72–86; PULSE 71–79; RESP 12–20; TEMP 36.4; O2SAT 97–100; BMI 25.2
--- NOTE | 2025-05-18 16:48 | DI.RAD.S_ITS ---
PROCEDURE: XR CHEST 1V INDICATIONS: chest pain TECHNIQUE: One view of the chest was acquired. COMPARISON: [facility], CR, XR CHEST 1V, 04/22/2024, 7:46. [facility], CR, XR CHEST 1V, 04/06/2024, 17:53. FINDINGS AND IMPRESSION: No dense airspace disease or pleural effusions on this single view study. Mediastinal clips and sternotomy wires. Normal heart size. Degenerative osseous changes. Dictated by: Mitch Alan M.D. on 05/18/2025 at 16:15 Approved by: Mitch Alan M.D. on 05/18/2025 at 16:15
--- NOTE | 2025-05-18 16:48 | EKG_ITS ---
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
[2025-05-18 17:06] LABS: Add Manual Diff / Slide Review NO; Hematocrit 36.6 % (41-53); Hemoglobin 12.3 g/dL (13.5-17.5); Lymphocytes Absolute Auto 2100 /uL (1100-4500); Mean Corpuscular HGB Conc 33.7 % (30-36); Mean Corpuscular Hemoglobin 29.7 PG (26-34); Mean Corpuscular Volume 88.2 fL (80-100); Platelet Count 217 X10^3/uL (150-400)
[2025-05-18 17:12] LABS: Alanine Aminotransferase 18 IU/L (<50); Albumin 4.6 g/dL (3.5-5.0); Albumin Globulin Ratio 1.5 (1.0-2.8); Alkaline Phosphatase 116 U/L (38-126); Blood Urea Nitrogen 22 mg/dL (9-20); Calcium 9.2 mg/dL (8.4-10.2); Carbon Dioxide 29 mmol/L (22-32); Chloride 101 mmol/L (98-107); Creatine Kinase 50 U/L (55-170); Estimated Glomerular Filt Rate > 60 mL/min (>60); Globulin 3.1 g/dL (1.7-4.1); Glucose 286 mg/dL (70-99); HEMOLYSIS < 15 (0-50); Lipase 248 U/L (23-300); Potassium 4.3 mmol/L (3.4-5.1); Sodium 136 mmol/L (137-145); Total Protein 7.7 g/dL (6.3-8.2)
[2025-05-18 17:24] LABS: Troponin I < 0.012 ng/mL (0.01-0.034)
--- NOTE | 2025-05-18 18:48 | EKG_ITS ---
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
[2025-05-18 19:10] LABS: Troponin I < 0.012 ng/mL (0.01-0.034)
--- NOTE | 2025-05-18 21:47 | ED.GENADULT ---
HPI - General Adult General Chief complaint: Weakness Stated complaint: Fatigue Time Seen by Provider: 05/18/25 16:36 Source: patient Mode of arrival: Ambulatory History of Present Illness HPI narrative: 65-year-old male with history of CABG March 2024, history of diabetes, has had generalized fatigue today, has not eaten much after breakfast, denies chest pain or shortness of breath, denies nausea or vomiting, denies diarrhea loose stools black or red stools. Denies pain to his abdomen pelvis, flanks, legs, arms, head, neck. Does not recall any changes in medications. Denies drug or alcohol use. Related Data Home Medications ?Medication ?Instructions ?Recorded ?Confirmed aspirin 81 mg tablet,delayed 81 mg PO DAILY 04/06/24 07/11/24 release gabapentin 300 mg capsule 600 mg PO BEDTIME PRN Pain, 04/06/24 07/11/24 Moderate glipizide 5 mg-metformin 500 mg 2 tab PO BIDAC 04/06/24 07/11/24 tablet hydrocodone 5 mg-acetaminophen 325 1 tab PO Q6H PRN pain 04/06/24 07/11/24 mg tablet insulin NPH isoph U-100 human 100 5 unit SUBCUT BID 04/06/24 07/11/24 unit/mL (3 mL) subcutaneous pen (Humulin N NPH U-100 Insulin KwikPen) trazodone 100 mg tablet 100 mg PO ONCE PM PRN insomnia 04/06/24 07/11/24 amiodarone 200 mg tablet 200 mg PO DAILY 07/11/24 07/11/24 atorvastatin 20 mg tablet 20 mg PO BEDTIME 07/11/24 07/11/24 clopidogrel 75 mg tablet 75 mg PO DAILY 07/11/24 07/11/24 Allergies Allergy/AdvReac Type Severity Reaction Status Date / Time No Known Drug Allergies Allergy Verified 05/18/25 16:43 Patient History Medical History HTN (hypertension) Diabetes Coronary artery disease Social History household members: significant other Smoking Status: Former smoker Smoking Status: Former smoker alcohol intake frequency: holidays/special occasions only Alcohol type: beer Exam Narrative Exam Narrative: GENERAL: Well-developed patient, in mild distress. HEAD: Atraumatic. Normocephalic. EYES: Pupils equal round and reactive. Extraocular motions intact. No scleral icterus. No injection or drainage. ENT: Nose without bleeding, purulent drainage. Throat without erythema, tonsillar hypertrophy or exudate. Airway patent. NECK: Trachea midline. Non tender CARDIOVASCULAR: Regular rate and rhythm without murmurs, gallops, or rubs. RESPIRATORY: Clear to auscultation. Breath sounds equal bilaterally. No wheezes, rales, or rhonchi. GASTROINTESTINAL: Abdomen soft, non-tender, nondistended. EXTREMITIES: No edema or joint tenderness. BACK: Nontender without deformity or crepitance. No flank tenderness. NEURO: AOx3. Motor functions grossly nonfocal. SKIN: No rash or erythema of visible areas Initial Vital Signs Initial Vital Signs: Vital Signs Temperature 97.6 F 05/18/25 16:43 Pulse Rate 75 05/18/25 16:43 Respiratory Rate 16 05/18/25 16:43 Blood Pressure 177/81 H 05/18/25 16:43 Pulse Oximetry 98 05/18/25 16:43 Oxygen Delivery Method Room Air 05/18/25 16:43 Course Orders Ordered: ED Orders 05/18/25 16:48 XR chest 1V Stat EKG-12 Lead Stat 05/18/25 16:54 Complete Blood Count AUTO DIFF Stat Comprehensive Metabolic Panel Stat Lipase Stat Troponin & CK Cardiac Panel Stat 05/18/25 18:26 EKG-12 Lead Stat 05/18/25 18:30 Trop I [Troponin I] Stat Discontinued Medications Aspirin (Aspirin 81 Mg Chew Tab) 324 mg PO NOW ONE Stop: 05/18/25 16:49 Vital Signs Vital signs: Vital Signs - 8 hr 05/18/25 18:00 05/18/25 18:01 05/18/25 18:01 Pulse Rate 79 77 Respiratory Rate 18 20 Blood Pressure 172/75 H Pulse Oximetry 99 100 05/18/25 18:30 05/18/25 18:31 05/18/25 18:31 Pulse Rate 79 79 Respiratory Rate 16 18 Blood Pressure 199/82 H Pulse Oximetry 100 99 05/18/25 19:00 05/18/25 19:00 05/18/25 19:30 Pulse Rate 76 74 Respiratory Rate 12 12 Blood Pressure 166/79 H Pulse Oximetry 99 98 05/18/25 19:31 05/18/25 19:31 05/18/25 20:00 Pulse Rate 74 75 Respiratory Rate 13 18 Blood Pressure 182/79 H Pulse Oximetry 98 98 05/18/25 20:01 05/18/25 20:01 05/18/25 20:30 Pulse Rate 74 Respiratory Rate 17 Blood Pressure 181/77 H 169/80 H Pulse Oximetry 97 05/18/25 20:30 05/18/25 21:00 05/18/25 21:00 Pulse Rate 72 73 Respiratory Rate 14 15 Blood Pressure 185/78 H Pulse Oximetry 97 98 05/18/25 21:30 05/18/25 21:30 05/18/25 22:00 Pulse Rate 76 72 Respiratory Rate 18 20 Blood Pressure 144/80 H Pulse Oximetry 98 98 05/18/25 22:00 05/18/25 22:30 05/18/25 22:30 Pulse Rate 71 Respiratory Rate 13 Blood Pressure 115/72 151/77 H Pulse Oximetry 98 Medical Decision Making Lab Data Lab results reviewed: Yes I reviewed the patient's lab results. Lab results narrative: White blood cell count 7600, hemoglobin 12.3, platelets adequate. Glucose 286. BUN 22 with creatinine 0.66 noted, serum CO2 29, sodium 136 slight low only, potassium 4.3 normal. Liver functions and lipase normal. Troponin negative/unmeasurable x2 interval sets. 05/18/25 16:54 05/18/25 16:54 Labs: Lab Results 05/18/25 05/18/25 Range/Units 16:54 18:30 WBC 7.6 (4.5-11.0) X10^3/uL RBC 4.14 L (4.5-5.9) X10^6/uL Hgb 12.3 L (13.5-17.5) g/dL Hct 36.6 L (41-53) % MCV 88.2 (80-100) fL MCH 29.7 (26-34) PG MCHC 33.7 (30-36) % RDW 13.6 (11.6-14.8) % Plt Count 217 (150-400) X10^3/uL Neut % (Auto) 60.5 (50-75) % Lymph % (Auto) 27.4 (25-40) % [place] % (Auto) 8.7 (3-14) % Eos % (Auto) 2.7 (2-4) % Baso % (Auto) 0.7 (0-2) % Neut # (Auto) 4600 (9837-7716) /uL Lymph # (Auto) 2100 (3763-6489) /uL [place] # (Auto) 700 (0-900) /uL Eos # (Auto) 200 (0-450) /uL Baso # (Auto) 100 (0-100) /uL Sodium 136 L (137-145) mmol/L Potassium 4.3 (3.4-5.1) mmol/L Chloride 101 (98-107) mmol/L Carbon Dioxide 29 (22-32) mmol/L BUN 22 H (9-20) mg/dL Creatinine 0.66 (0.66-1.25) mg/dL Estimated GFR > 60 (>60) mL/min BUN/Creatinine Ratio 33.3 H (6-22) Glucose 286 H (70-99) mg/dL Calcium 9.2 (8.4-10.2) mg/dL Total Bilirubin 0.6 (0.2-1.3) mg/dL AST 21 (17-59) IU/L ALT 18 (<50) IU/L Alkaline Phosphatase 116 (38-126) U/L Total Creatine Kinase 50 L (55-170) U/L Troponin I < 0.012 < 0.012 (0.01-0.034) ng/mL Total Protein 7.7 (6.3-8.2) g/dL Albumin 4.6 (3.5-5.0) g/dL Globulin 3.1 (1.7-4.1) g/dL Albumin/Globulin Ratio 1.5 (1.0-2.8) Lipase 248 (23-300) U/L Imaging Data Chest x-ray: Radiologist's Impression: [address] [address] XRay Report Signed Patient: Yonny Chen MR#: [id number] : 1960 Acct:[id number] Age/Sex: 65 / M Date of Service: 05/18/25 Loc: ED Accession Number: [id number] Procedure: XR chest 1V Ordering Provider: Jessica Garcia MD PROCEDURE: XR CHEST 1V INDICATIONS: chest pain TECHNIQUE: One view of the chest was acquired. COMPARISON: [facility], CR, XR CHEST 1V, 04/22/2024, 7:46. [facility], CR, XR CHEST 1V, 04/06/2024, 17:53. FINDINGS AND IMPRESSION: No dense airspace disease or pleural effusions on this single view study. Mediastinal clips and sternotomy wires. Normal heart size. Degenerative osseous changes. Dictated by: Mitch Alan M.D. on 05/18/2025 at 16:15 Approved by: Mitch Alan M.D. on 05/18/2025 at 16:15 ECG Data Interpretation: 1652, normal sinus rhythm with PVCs. Ventricular rate 78. Left bundle branch block pattern. AR 160, QRS 146, QTC 467. 2048, normal sinus rhythm with sinus arrhythmia, left bundle branch block, rate 78. AR 172, QRS 142, QTC 467. MDM Narrative Medical decision making narrative: 65-year-old male with prior CABG, diabetes, eating less through the day after small breakfast, has generalized fatigue symptoms. Afebrile, sirs screen negative. Amiodarone on medication list. Denies palpitation chest pain shortness of breath symptoms. Screening labs unremarkable. Glucose 200s, normal gap. EKG shows sinus rhythm left bundle branch block. Troponin negative. Lab data: White blood cell count 7600, hemoglobin 12.3, platelets adequate. Glucose 286. BUN 22 with creatinine 0.66 noted, serum CO2 29, sodium 136 slight low only, potassium 4.3 normal. Liver functions and lipase normal. Troponin negative/unmeasurable x2 interval sets. Patient feels better without any specific treatment. Normotensive, no tachycardia. He would like to go home to have further oral foods and fluids. Offered IV fluids, declined. Offered food tray, declined. Discharged home with family who concurred with his desire to go home. Return precautions discussed. Discharge Plan Departure Patient Disposition: Home Clinical Impression: Fatigue Activity Restrictions/Additional Instructions: History of multivessel cardiac bypass March 2025, diabetes. Complaint of generalized weakness and fatigue since earlier this morning after eating breakfast. Denying any focal weakness to 1 side face arm or leg. Denying any focal numbness to 1 side face arm or leg. Denying any chest discomfort or shortness of breath. No fever on triage. Unremarkable physical exam. Screening labs also unremarkable. Glucose in the 200s not particularly the higher particularly low. He thought that maybe you were not eating so much lately. Offered food, you would rather have food at home. Offered intravenous fluids, with preference to have further hydration orally at home. Continue your chronic medications for now as directed. Recheck symptoms tomorrow with your regular doctor during regular hours. Return to this/nearest emergency department for any change worsening symptoms or any concerns prior. Prescriptions: No Action atorvastatin 20 mg tablet 20 mg PO BEDTIME amiodarone 200 mg tablet 200 mg PO DAILY clopidogrel 75 mg tablet 75 mg PO DAILY hydrocodone-acetaminophen 5-325 mg tablet 1 tab PO Q6H PRN (Reason: pain) aspirin 81 mg tablet,delayed release (DR/EC) 81 mg PO DAILY trazodone 100 mg tablet 100 mg PO ONCE PM PRN (Reason: insomnia) gabapentin 300 mg capsule 600 mg PO BEDTIME PRN (Reason: Pain, Moderate) Rx Instructions: Pt reports he takes 3 tabs PRN nightly glipizide-metformin 5-500 mg tablet 2 tab PO BIDAC Humulin N NPH Insulin KwikPen 100 unit/mL (3 mL) insulin pen 5 unit SUBCUT BID Referrals: Esther Sheridan MD [Primary Care Provider, Medical] Stand Alone Forms: Patient Portal/API
--- NOTE | 2025-05-18 23:15 | PC.NURSE ---
Ambulated patient around the ED. Patient stated they were a bit unsteady, but patient tolerated ambulating well.
== END 2025-05-18 23:28 | disposition home or self-care (01) ==
PROVIDERS: Emergency Medicine; Emergency Provider Emergency Medicine; PCP Family Medicine
DX: R53.83 Other fatigue (principal); R07.9 Chest pain, unspecified
CPT/HCPCS: 71045; 80053; 82550; 83690; 84484; 85025; 93005; 93010; 99283; 99284